=== PATIENT | male | born 1955 | race Caucasian/White ===

== ENCOUNTER 2018-05-19 09:11 | Outpatient (REF) | payer MEDICARE, SELFPAY ==
[2018-05-19 21:44] LABS: Absolute Basophil Count 0.03 k/cumm (0.0-0.2); Absolute Eosinophil Count 0.14 k/cumm (0.0-0.7); Absolute Lymphocyte Count 1.25 k/cumm (1.2-3.4); Absolute Monocyte Count 0.73 k/cumm (0.11-0.7); Absolute Neutrophil Count 2.75 k/cumm (1.2-6.7); Basophils % 0.6; Eosinophils % 2.9; HCT 42.9 % (40.0-50.0); HGB 14.6 g/dL (13.5-17.5); Lymphocytes % 25.5; Mean Corpuscular Hemoglobin 32.2 pg (27.0-33.0); Mean Corpuscular Volume 94.5 fL (80-95); Mean Platelet Volume 11.1 fL (8.0-11.0); Monocytes % 14.9; Neutrophils % 56.1; Platelet Count 164 x1000/uL (130-400); RBC 4.54 m/cumm (4.50-6.00); RBC Distribution Width 13.4 % (11.8-14.1)
[2018-05-19 21:55] LABS: Hemoglobin A1C 5.8 % (4.5-6.2)
[2018-05-19 21:57] LABS: ALT 33 U/L (12-78); AST 20 U/L (15-37); Albumin 3.8 g/dL (3.4-5.0); Alkaline Phosphatase 79 U/L (46-116); Anion Gap 7.5 mmol/L (3-11); BUN 17 mg/dL (7-18); Bilirubin, Total 0.6 mg/dL (0.2-1.0); CO2 29.5 mmol/L (21.0-32.0); CREATININE 1.62 mg/dL (0.70-1.30); Calcium 9.3 mg/dL (8.5-10.1); Chloride 99 mmol/L (98-107); Estimated GFR 42.98 (mL/min/1.73m2); Glucose 96 mg/dL (70-100); Potassium 4.4 mmol/L (3.5-5.1); Sodium 136 mmol/L (136-145); Total Protein 7.3 g/dL (6.4-8.2); Uric Acid 8.3 mg/dL (3.5-7.2)
[2018-05-19 22:33] LABS: ESR 22 MM/HR (1-20)
== END 2018-05-19 09:31 ==
LOC: NCHCN 09:11
PROVIDERS: PCP Internal Medicine; Visit Provider Nurse Practitioner Family
DX: M10.9 Gout, unspecified (principal); R22.41 Localized swelling, mass and lump, right lower limb; R73.03 Prediabetes; I10 Essential (primary) hypertension
CPT/HCPCS: 80053; 85652; 83036; 84550; 85025; 86140

== ENCOUNTER 2018-07-12 11:41 | Outpatient (REF) | payer MEDICARE, SELFPAY ==
[2018-07-12 22:26] LABS: Anion Gap 7.7 mmol/L (3-11); BUN 15 mg/dL (7-18); CO2 31.3 mmol/L (21.0-32.0); Calcium 8.9 mg/dL (8.5-10.1); Chloride 99 mmol/L (98-107); Estimated GFR 46.97 (mL/min/1.73m2); Glucose 97 mg/dL (70-100); Potassium 4.6 mmol/L (3.5-5.1); Sodium 138 mmol/L (136-145)
== END 2018-07-12 12:01 ==
LOC: NCHCN 11:41
PROVIDERS: PCP Internal Medicine; Visit Provider Nurse Practitioner Family
DX: I10 Essential (primary) hypertension (principal)
CPT/HCPCS: 80048

== ENCOUNTER 2018-07-23 09:22 | Outpatient (REF) | payer MEDICARE, SELFPAY ==
[2018-07-23 21:26] LABS: Anion Gap 5.6 mmol/L (3-11); BUN 18 mg/dL (7-18); CO2 31.4 mmol/L (21.0-32.0); CREATININE 1.55 mg/dL (0.70-1.30); Calcium 9.5 mg/dL (8.5-10.1); Chloride 98 mmol/L (98-107); Estimated GFR 45.23 (mL/min/1.73m2); Glucose 101 mg/dL (70-100); Potassium 4.4 mmol/L (3.5-5.1); Sodium 135 mmol/L (136-145)
== END 2018-07-23 09:42 ==
LOC: NCHCN 09:22
PROVIDERS: PCP Internal Medicine; Visit Provider Nurse Practitioner Family
DX: I10 Essential (primary) hypertension (principal)
CPT/HCPCS: 80048

== ENCOUNTER 2024-03-17 08:59 | Outpatient (REF) | payer MEDICARE, SELFPAY ==
--- OUTSIDE RECORDS SUMMARY | 2024-03-17 09:06 | XMS_ITS | Data Portability ---
Author Organization [place] - [facility] Address Leslie [place] [facility] [place] [address] Assessment Encounter Date Assessment Date Assessment LastModified by Organization Details LastModified Time 03/09/2024 03/09/2024 Patient recently experienced a CVA event and has ongoing weakness in his right upper extremity. He is advised to continue with low dose aspirin and Lipitor 40 mg at night for an LDL of 136. Referrals to cardiology and vascular surgery are in place. A CT of the head without contrast is recommended for early April.The patient is a 69-year-old male with a history of chronic kidney disease, stage 3, recent cerebral infarction, essential hypertension, and swollen right hand. He presents for follow-up after his recent CVA event and reinitiation of primary care. His blood pressure is currently controlled with medications, and he has limited use of his swollen right hand, which he believes may be due to gout. [email or web address] Not available 03/09/2024 10:00:33 Plan of Treatment Reminders Order Date Submit Date Provider Last Modified By Organization Details Last Modified Time Details Appointments Follow Up 2023 08:10A M Not available Not available Not available Follow Up 2023 09:00A M Not available Not available Not available Lab None recorded. Referral None recorded. Procedures None recorded. Surgeries None recorded. Imaging None recorded. Medication Orders nifedipin e ER 30 mg tablet,ex tended release 2023 0815/2 024 [id number], [address], [place], [place], [phone], 03/17/2024 08:04:22 Patient TargetsNo targets recorded. Patient Instructions Encounter Date Encounter Id Patient Instructions Last Modified By Organization Details Last Modified Time 03/09/2024 [id number] - Continue warren garcia prescribed blood pressure medications - Monitor blood pressure at home twice a day - Follow up within a week to reevaluate blood pressure and medication regimen - Apply gel and take Tylenol as recommended for swollen right hand - Schedule a follow-up appointment to discuss the possibility of physical therapy once the gout has resolved. [email or web address] Not available 03/09/2024 09:41:14 Reason for Referral None Reported. Results Created Date Observation Date Name Description Value Unit Range Abnormal Flag LastModifiedBy Organization Detail LastModifiedTime Result Notes None recorded. Problems Name Status Onset Date Resolution Date Notes Provider Name and Address Organization Details Recorded Time Cerebrovascular accident Active 024 [facility] [place] EBER carlos [facility] 4 06:24:44 Chronic kidney disease stage 3 Active 024 EBER carlos [facility] 4 06:25:16 Essential hypertension Active 024 EBER carlos [facility] 4 06:25:52 Hyperlipidemia Active 024 GRACE MENDOZA, [facility] N[facility]SE [address], [place], [address] [place] [address] 4 09:58:32 Problem Notes None recorded. Medical Equipment None Reported. Medications Name Sig Start Date Stop Date Status Note LastModified by Organization Details LastModified Time nifedipine ER 30 mg tablet,ext ended release 24 hr TAKE 1 TABLET BY MOUTH EVERY DAY active Not Available Not Available No t Available atorvastat in 40 mg tablet Take 1 tablet every day by oral route at bedtime. active Not Available Not Available No t Available clonidine HCl 0.1 mg tablet Take 1 tablet twice a day by oral route. active Not Available Not Available No t Available carvedilol 6.25 mg tablet Take 1 tablet twice a day by oral route with meal(s). active Not Available Not Available No t Available nifedipine ER 30 mg tablet,ext ended release Take 1 tablet every day by oral route. 03/17 completed Not Available Not Available Not Available aspirin 81 mg chewable tablet Chew 1 tablet every day by oral route. active Not Available Not Available No t Available irbesartan 150 mg tablet Take 1 tablet every day by oral route. active Not Available Not Available No t Available diclofenac 1 % topical gel APPLY 2 GRAMS TO THE AFFECTED AREA(S) BY TOPICAL ROUTE 4 TIMES PER DAY active PRN for wrist pain Not Available Not Available Not Available Vitals Date Recorded Body height Body temperature Oxygen saturation Oxygen saturation in Arterial blood by Pulse oximetry Heart rate Systolic blood pressure Diastolic blood pressure Provider Name and Address Organization Details Last Updated DateTime 4 182.88 cm 97.3 [degF] 98 % 98 % 60 /min 122 mm[Hg] 62 mm[Hg] ALMA BULL RN [facility] 4 07:43:47 Date Recorded Body height Body mass index (BMI) Body weight Body temperature Oxygen saturation Oxygen saturation in Arterial blood by Pulse oximetry Heart rate Systolic blood pressure Diastolic blood pressure Provider Name and Address Organization Details Last Updated DateTime 4 182.88 cm 38 kg/m2 842558. 86 g 97.2 [degF] 99 % 99 % 57 /min 156 mm[Hg] 86 mm[Hg] MARTHA VAUGHAN MA [facility] 4 08:08:03 Social History Question Answer Notes LastModified by Organizat ion Details LastModified Time Tobacco Smoking Status Never Smoker But chews ALMA BULL RN [facility], [facility] 03/09/2024 07:40:47 Do You Or Have You Ever Used E-cigarettes Or Vape? Never Used Electronic Cigarettes [email or web address] Information not available 03/09/2024 Would You Say That, In General, Your Health Is Good [email or web address] Information not available 03/08/2024 How Often Does Anyone, Including Family, Physically Hurt You? Never [email or web address] Information not available 03/08/2024 How Often Does Anyone, Including Family, Insult Or Talk Down To You? Never [email or web address] Information no t available 03/08/2024 How Often Does Anyone, Including Family, Threaten You With Harm? Never [email or web address] Information not available 03/08/2024 How Often Does Anyone, Including Family, Scream Or Curse At You? Never Information not available 03/08/2024 Within The Past 12 Months, You Worried That Your Food Would Run Out Before You Got Money To Buy More. Never True [email or web address] Information n ot available 03/08/2024 Within The Past 12 Months, The Food You Bought Just Didn't Last And You Didn't Have Money To Get More. Never True [email or web address] Information n ot available 03/08/2024 How Hard Is It For You To Pay For The Very Basics Like Food, Housing, Medical Care, And Heating? Would You Say It Is: Not Hard At All [email or web address] Information not available 03/08/2024 In The Past 12 Months, Has Lack Of Reliable Transportation Kept You From Medical Appointments, Meetings, Work Or From Getting Things Needed For Daily Living? No [email or web address] Information not available 03/08/2024 What Is Your Housing Situation Today? I Have Housing. [email or web address] Information not available 03/08/2024 How Often In The Past Year Have You Used Marijuana (including Smoking, Vaping, Dabbing, Or Edibles)? Never Information not available 03/08/2024 How Often In The Past Year Have You Used Prescription Medications That Were Not Prescribed To You? Never [email or web address] Information n ot available 03/08/2024 How Often In The Past Year Have You Taken Your Own Prescription Medication More Than The Way It Was Prescribed Or For Different Reasons Than Its Intended Purpose? Never [email or web address] Information no t available 03/08/2024 How Often In The Past Year Have You Used Other Drugs (for Example, Heroin, Cocaine, Meth, Salvia, Inhalants)? Never [email or web address] Information not available 03/08/2024 Have You Ever Used IV Drugs? No [email or web address] Information not available 03/08/2024 Date Of Most Recent SBINS 03/09/2024 [email or web address] Information not available 03/08/2024 What Was The Date Of Your Most Recent Tobacco Screening? 03/09/2024 [email or web address] Information not available 03/09/2024 Do You Or Have You Ever Used Smokeless Tobacco? Former Smokeless Tobacco User Quit Since 2023 [email or web address] Information not available 03/09/2024 Has Tobacco Cessation Counseling Been Provided? No [email or web address] Information not available 03/09/2024 Do You Or Have You Ever Used Any Other Forms Of Tobacco Or Nicotine? Yes [email or web address] Information not available 03/09/2024 How Many Years Have You Used Smokeless Tobacco? 50 [email or web address] Information n ot available 03/09/2024 Sex: Male Functional Status None recorded. Mental Status None recorded. Family History Relationship Description Onset Age of this Age Resolved Age Notes Notes:Mother: 75 [address] . Father: 51 heart attack, rheumatic fever. 2 sisters: 1 sister obese, diabetic. 5 Brothers: 1 electrocution; 1 heart trouble; 2 brother HTN. Possible hypertrophic cardiomyopathy with 2 brothers per patient - he is unsure. Children:1 child alive and well. Family History of: Hypertension: yes Hyperlipidemia: yes Coronary heart disease: yes Diabetes mellitus: yes Breast cancer: no Colorectal cancer: no Prostate cancer: no Alcoholism: no Mental illness: no Other: no Medical History No medical history recorded. Immunizations Vaccine Type Date Status Provider Name and Address Organization Details Recorded Time Tdap 11/20/2014 completed BENIGNO KHAN, [facility] 03/16/2024 08:23:14 Td(adult) unspecified formulation 09/03/1998 completed BENIGNO KHAN, [facility] 03/16/2024 08:23:27 Td(adult) unspecified formulation 09/07/2003 completed BENIGNO KHAN, [facility] 03/16/2024 08:23:33 Past Encounters Encounter ID Performer Location Encounter Start Date Encounter Closed Date Diagnosis/Indication Diagnosis SNOMED-CT Code [id number] GRACE MENDOZA [address] [address] 03/09/2024 07:16:20 03/09/2024 08:18:52 Chronic kidney disease stage 3 [id number] Cerebrovas cular accident [id number] Essential hypertension 30710313 Hyperlipidemia [id number] August [address] [address] 03/17/2024 07:56:36 03/17/2024 08:53:09 Essential hypertension 66628974 Health Concerns Section Related Observation LastModified by Organization Detai ls LastModified Time None Recorded Concern Status LastModified by Organization Details LastModified Time None Recorded Advance Directives Directive None Recorded Payers Encounter Date Sequence Insurance Name Policy Number Policy Olvera Covered Member ID Olvera Member ID Guarantor Name 03/09/2024 1 [place]ICARE [place]: [email or web address] Scottie Smith [id number] Scottie Smith Notes Date Note Type Note Provider Name and Address Organization Details Recorded Time 03/09/2024 text/html HPI Notes: -Pt s hould f/u with cardiology and vascular surgery (referrals in place) -Pt should have playground monitor on for 30 days. started around march 04. - Needs CT of head wo contrast to be completed around 04/04 (not sure this has been ordered or not) 69-year-old male presents for follow-up after recent CVA event and reinitiation of primary care. Cerebral infarction: Patient recently had a CVA event and was hospitalized for several days. He had limited prior medical care, poorly controlled hypertension, and coronary artery disease. He presented with new onset of right upper extremity weakness. CT of his head and angiogram showed a moderate stenosis. He was not given TPA at the hospital. Essential hypertension: Patient reports poor tolerance to blood pressure medications in the past and has not been treated with any antihypertensives prior to his admission to the hospital. His blood pressure is currently controlled with medications. Swollen right hand: Patient's right hand is swollen and he has limited use of it. He believes this may be due to gout. He has a history of getting gout a couple of times a year in various locations. He is currently not receiving any physical therapy for his hand. 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 03/17/2024 04:47:42
--- OUTSIDE RECORDS SUMMARY | 2024-03-17 09:07 | XMS_ITS | Clinical Summary ---
Author Organization [facility] Address [address] [place] [address] Care Team Providers Care Automatic Engraver Name Role Phone Rhonda Han MISAEL Primary Care Provider [phone] Allergies No known active allergies Medications Medication Sig Dispensed Refills Start Date End Date Status aspirin chewable 81 mg tablet Take 1 Tablet by mouth daily for 90 days. 30 Tablet 2 03/04/2024 06/02/2024 Active atorvastatin (LIPITOR) 40 mg tablet Take 1 Tablet by mouth at bedtime for 90 days. 30 Tablet 2 03/04/2024 06/02/2024 Active carvediloL (COREG) 6.25 mg tablet Take 1 Tablet by mouth 2 times daily with breakfast and dinner for 90 days. 60 Tablet 2 03/04/2024 06/02/2024 Active cloNIDine HCL (CATAPRES) 0.1 mg tablet Take 1 Tablet by mouth 2 times daily for 30 days. 60 Tablet 03/04/2024 04/03/2024 Active NIFEdipine XL (PROCARDIA-XL) 30 mg tablet Take 1 Tablet by mouth daily for 90 days. 30 Tablet 2 03/04/2024 06/02/2024 Active irbesartan (AVAPRO) 150 mg tablet Take 1 Tablet by mouth daily for 90 days. 30 Tablet 2 03/04/2024 06/02/2024 Active diclofenac sodium gel Apply 2 g topically 4 times daily for 30 days. As needed for wrist pain 250 g 03/04/2024 04/03/2024 Active aspirin chewable 81 mg tablet Take 81 mg by mouth daily. 03/01/2024 Discontinued( Patient stopped taking (will not send dc message to pharm)) Active Problems Problem Noted Date Diagnosed Date Mass in region of sella turc ica present on magnetic resonance imaging 03/04/2024 Resistant hypertension 03/04/2024 Stenosis of carotid artery 03/04/2024 Primary hypertension 03/02/2024 Stage 3 chronic kidney disease (HCC-CMS) 024 Cerebrovascular accident (CVA) (HCC-CMS) 024 Cerebrovascular accident (CV A), unspecified mechanism (HCC-CMS) 03/01/2024 Encounters Date Type Department Care Team Description 03/11/2024 16:00 EDT Nurse Only [facility] [address] [place] [address] Nurse, [facility] Cerebrovascular accident (CVA), unspecified mechanism (HCC-CMS) (Primary Dx) 03/11/2024 16:00 EDT Ancillary Procedure [facility] [address] [place], [place] [id number] Cerebrovascular accident (CVA), unspecified mechanism (HCC-CMS) 03/04/2024 Telephone [facility] [address] [place] [id number] Samaria Dorsey MD Cardiac Testing (CHANDLER Order) 03/01/2024 9:51 EDT - 03/04/2024 11:57 EDT Hospital Encounter [facility] Medical / Surgical Department [address] [place] [address] [id number] Benny Ferreira MD Bolton, Kenyon C, MD Clouser, Ryan D, Rocael Geller DO Clark, Nicole P, PAViraC Cerebrovascular accident (CVA), unspecified mechanism ([facility]-CMS) (Primary Dx); Primary hypertension; Stage 3 chronic kidney disease, unspecified whether stage 3a or 3b CKD (HCC-CMS); Stage 3a chronic kidney disease (HCC-CMS) [N18.31]; Mass in region of sella turcica present on magnetic resonance imaging; Resistant hypertension; Stenosis of carotid artery, unspecified laterality Discharge Disposition: Home or Self Care 03/01/2024 Telemedicine [facility] Telemedicine - [address] [address] Nina Rivera MD Ischemic stroke ([facility]) (Primary Dx) from Last 3 Months Social History Tobacco Use Types Packs/Day Years Used Date Smoking Tobacco: Never Smokeless Tobacco: Current Chew Tobacco Cessation:Ready to Q uit: Yes; Counseling Given: Not Answered Alcohol Use Standard Drinks/Week Comments Yes 5 (1 standard drink = 0.6 oz pur e alcohol) [facility] Utilities Answer Date Recorded In the past 12 months has th e electric, gas, oil, or water company threatened to shut off services in your home? No 03/01/2024 Hunger Vital Sign Answer Date Recorded Within the past 12 months, y ou worried that your food would run out before you got the money to buy more. Never true 03/01/20 24 Within the past 12 months, t he food you bought just didn't last and you didn't have money to get more. Never true 03/01/2024 PRAPARE - Transportation Answer Date Re corded In the past 12 months, has l ack of transportation kept you from medical appointments or from getting medications? No 02/02 In the past 12 months, has l ack of transportation kept you from meetings, work, or from getting things needed for daily living? No 03/02/2024 Housing Stability Vital Sign Answer Tony e Recorded In the last 12 months, was t here a time when you were not able to pay the mortgage or rent on time? No 03/02/2024 In the past 12 months, how m any times have you moved where you were living? 0 03/02/2024 At any time in the past 12 m [facility], were you homeless or living in a custodial (including now)? No 03/02/2024 Interpersonal Safety Answer Date Record ed How often does anyone, inclu mónica family, hit, punch or physically hurt you? 03/01/2024 How often does anyone, inclu mónica family, insult, scream, curse or threaten to hurt you? 03/01/2024 Sex and Gender Information Value Date Recorded Sex Assigned at Not on file Gender Identity Not on file Sexual Orientation Not on file Obstetrics History Last Filed Vital Signs Vital Sign Reading Time Taken Comments Blood Pressure 160/83 03/04/2024 1140 EDT Pulse 73 02/23/2021 0909 EDT Temperature 36.6 ??C (97.9 ??F) 03/04/2024 1140 EDT Respiratory Rate 18 03/04/2024 1140 EDT Oxygen Saturation 95% 03/04/2024 1140 EDT Inhaled Oxygen Concentration - - Weight 121 kg (266 lb 12.8 oz) 03/04/2024 0351 E DT Height 182.9 cm (6') 03/01/2024 1613 EDT Body Mass Index 36.18 03/01/2024 1613 EDT Plan of Treatment Upcoming Encounters Date Type Department Care Team (Late st Contact Info) Description 04/22/2024 17:00 EDT Appointment [facility] CT Scan [address] [phone] Health Maintenance Due Date Last Done Comments Hepatitis C Screen 1955 RSV Immunization ( o r 60+ Years) (1 - 1-dose 60+ series) 2013 Fall Risk Screening 2018 COVID-19 Vaccine (2022- season) 2023 Procedures Procedure Name Priority Date/Time Associated Diagnosis Comments ECG REPORT - SCANNED 03/08/2024 8:01 EDT US RENAL ARTERY DUPLEX COMPLETE STAT 03/04/2024 9:25 EDT UA WITH REFLEX SEDIMENT (CULTURE IF POS) Routine 03/03/2024 20:37 EDT ECG REPORT - SCANNED 03/03/2024 13:40 EDT XR WRIST RIGHT 2 VIEWS STAT 10:32 EDT HOLD LAVENDER TOP Routine 03/03/2024 6:3 0 EDT BASIC METABOLIC PANEL (BMP) Routine 03/03/2024 6:30 EDT LIPID PROFILE (INCLUDES CHOLESTEROL, TRIGLYCERIDES, HDL, LDL) Routine 03/02/2024 6:45 EDT PROLACTIN Routine 03/02/2024 6:45 EDT IGF-1, LC/MS, S Routine 03/02/2024 6:45 EDT ACTH, PLASMA Routine 03/02/2024 6:45 EDT CORTISOL Routine 03/02/2024 6:45 EDT COMPLETE BLOOD COUNT Routine 03/02/2024 6:45 EDT COMPREHENSIVE METABOLIC PANEL (CMP) Routine 03/02/2024 6:45 EDT ECG REPORT - SCANNED 03/01/2024 16:45 EDT MR HEAD WO CONTRAST STAT 03/01/2024 1 5:18 EDT TRANSTHORACIC ECHO (TTE) COMPLETE Routine 03/01/2024 14:03 EDT XR CHEST PORTABLE 1 VIEW STAT 03/01/2024 11:52 EDT POCT GLUCOSE, INTERFACED STAT 03/01/2024 11:25 EDT EKG 12-LEAD STAT 03/01/2024 10:10 EDT T4 FREE Today 03/01/2024 10:08 EDT THYROID CASCADE Add-On 03/01/2024 10:08 EDT HEMOGLOBIN A1C Add-On 03/01/2024 10:08 EDT UA WITH REFLEX SEDIMENT (CULTURE IF POS) STAT 03/01/2024 10:08 EDT MAGNESIUM STAT 03/01/2024 10:08 EDT TROPONIN I STAT 03/01/2024 10:08 EDT PTT STAT 03/01/2024 10:08 EDT PROTIME STAT 03/01/2024 10:08 EDT ETHANOL, BLOOD STAT 03/01/2024 10:08 EDT COMPREHENSIVE METABOLIC PANEL (CMP) STAT 03/01/2024 10:08 EDT COMPLETE BLOOD COUNT AND DIFFERENTIAL STAT 03/01/2024 10:[address] ANGIO HEAD NECK STAT 03/01/2024 10 :[address] HEAD WO CONTRAST STAT 03/01/2024 1 0:02 EDT ED CRITICAL CARE Routine 03/01/2024 9:49 EDT from Last 3 Months Results * ECG REPORT - SCANNED (03/08/2024 8:01 EDT) 03/08/2024 8:01 EDT Scan 2 Crusher Operator PROCEDURE/MINOR ALIYAH GICAL ORDERABLES * US RENAL ARTERY DUPLEX COMPLETE (03/04/2024 9:25 EDT) Anatomical Region Laterality Modality Vascular Ultrasound Narrative 03/04/2024 9:34 EDT Indication ======== Resistant hypertension. Evaluate for renal artery stenosis. Technique ======== Color and spectral doppler was performed to rule out renal artery stenosis. View: Suboptimal view: restricted by patient size Right Kidney Length 10.9 cm. Width 5.3 cm. Height 4.7 cm. Volume 141.3 cm?? Normal. Left Kidney ========= Length 11.6 cm. Width 5.4 cm. Height 5.2 cm. Volume 172.1 cm?? Normal. Renal Arteries Right Kidney Arteries: ?? PS ?ED ?RI ??EDR AT ?? cm/s ?cm/s ?ms Renal A mid ?88 ??26 ??0.71 ?0.29 ?130 Renal A distal 56 ??20 ??0.64 ?0.36 ?180 Segmental A upper ??15 ??0 ?? 1.00 ?0.00 ?240 Segmental A mid ?12 ??5 ?? 0.57 ?0.43 ?100 Segmental A lower ??21 ??7 ?? 0.66 ?0.34 ?180 Left Kidney Arteries: ?? PS ??ED ??RI ??EDR AT ?? cm/s ?cm/s ?ms Renal A prox ?? 142 42 ??0.71 ?0.29 ?240 Renal A mid ?65 ??27 ??0.58 ?0.42 ?320 Renal A distal 56 ??25 ??0.55 ?0.45 ?30 Segmental A upper ??15 ??6 ?? 0.60 ?0.40 ?150 Segmental A mid ?17 ??7 ?? 0.60 ?0.40 ?330 Segmental A lower ??18 ??6 ?? 0.66 ?0.34 ?300 Abdominal Aorta ?? Diam AP Diam Trans ??PS ??ED ?? cm ??cm ??cm/s ?cm/s Aorta prox 1.7 2.8 Aorta mid ??1.4 2.2 60 ??17 Aorta distal ?? 1.5 2.0 Impression ========= 1. Limited study as the proximal right renal artery could not be visualized. 2. No Doppler evidence of renal artery stenosis, however CTA is recommended if there is persistent refractory hypertension. 3. Kidneys normal in appearance. Procedure Note Lobo Siegel MD - 03/04/2024 Indication ======== Resistant hypertension. Evaluate for renal artery stenosis. Technique ======== Color and spectral doppler was performed to rule out renal arterystenosis. View: Suboptimal view: restricted by patient size Right Kidney Length 10.9 cm. Width 5.3 cm. Height 4.7 cm. Volume 141.3 cm?? Normal. Left Kidney ========= Length 11.6 cm. Width 5.4 cm. Height 5.2 cm. Volume 172.1 cm?? Normal. Renal Arteries Right Kidney Arteries: PS ED RI EDR AT cm/s cm/s ms Renal A mid 88 26 0.71 0.29 130 Renal A distal 56 20 0.64 0.36 180 Segmental A upper 15 0 1.00 0.00 240 Segmental A mid 12 5 0.57 0.43 100 Segmental A lower 21 7 0.66 0.34 180 Left Kidney Arteries: PS ED RI EDR AT cm/s cm/s ms Renal A prox 142 42 0.71 0.29 240 Renal A mid 65 27 0.58 0.42 320 Renal A distal 56 25 0.55 0.45 30 Segmental A upper 15 6 0.60 0.40 150 Segmental A mid 17 7 0.60 0.40 330 Segmental A lower 18 6 0.66 0.34 300 Abdominal Aorta Diam AP Diam Trans PS ED cm cm cm/s cm/s Aorta prox 1.7 2.8 Aorta mid 1.4 2.2 60 17 Aorta distal 1.5 2.0 Impression ========= 1. Limited study as the proximal right renal artery could not bevisualized. 2. No Doppler evidence of renal artery stenosis, however CTA isrecommended if there is persistent refractory hypertension. 3. Kidneys normal in appearance. Delphine Beltrán PA-C IMG US VASCULAR ORDE [place] * UA CASCADE TO CULTURE (03/03/2024 20:37 EDT) Only the most recent of2 resultswithin the time period is included. Color UA Yellow Colorless, Yellow 03/03/2024 20:44 [facility] Clarity UA Clear Clear 03/03/2024 20:44 [facility] Glucose UA Negative Negative mg/dL 03/03/2024 20:44 [facility] Bilirubin UA Negative Negative 03/03/2024 20:44 [facility] Ketones UA Negative Negative 03/03/2024 20:44 [facility] Specific [place], Urine 1.010 1.001 - 1.030 03/03/2024 20:44 [facility] Blood UA Negative Negative 03/03/2024 20:44 [facility] pH, UA 6.5 <8.5 03/03/2024 20:44 [facility] Protein UA Negative Negative mg/dL 03/03/2024 20:44 [facility] Urobilinogen UA 0.2 0.2-1.0 mg/dL mg/dL 03/03/2024 20:44 [facility] Nitrite UA Negative Negative 03/03/2024 20:44 [facility] Leukocyte Esterase UA Negative Negative 03/03/2024 20:44 [facility] Urine URINE SPECIMEN OBTAINED BY CLEAN CATCH PROCEDURE / Unknown Urine Collect / Unknown 03/03/2024 20:37 EDT 03/03/2024 20:40 EDT Delphine Beltrán PA-C URINALYSIS ORDERABLE S [facility] [address] [place] [address] * ECG REPORT - SCANNED (03/03/2024 13:40 EDT) 03/03/2024 13:4 0 EDT Scan 2 Crusher Operator PROCEDURE/MINOR ALIYAH GICAL ORDERABLES * XR WRIST RIGHT 2 VIEWS (03/03/2024 10:32 EDT) Anatomical Region Laterality Modality Upper Extremities Right Computed Radio graphy 03/03/2024 10:5 0 EDT Impressions 03/03/2024 10:50 EDT 1. ??No acute fracture identified. 2. ??Evidence of old wrist trauma, as detailed above. 3. ??Moderate wrist arthrosis. [id number] Narrative 03/03/2024 10:50 EDT XR WRIST RIGHT 2 VIEWS ?? Signs and Symptoms/Comments: ??fall. right wrist pain Comparison: 02/23/2021. FINDINGS: Right wrist: 2 views. Bones: Chronic widening of the scapholunate interval, suspicious for remote ligamentous injury. Mild chronic irregularity along the ulnar styloid, suspicious for an old fracture. Stable small calcification along the volar aspect of the proximal wrist on the lateral view, suspicious for an old fracture fragment. No superimposed acute fracture visible. Degenerative changes: Moderate wrist arthrosis. Mild ulnar negative variance. Soft tissues: Soft tissue swelling. Small vessel calcified atherosclerotic disease noted. Resulting Agency Comment [id number] Procedure Note Lobo Siegel MD - 03/03/2024 XR WRIST RIGHT 2 VIEWS Signs and Symptoms/Comments: fall. right wrist pain Comparison: 02/23/2021. FINDINGS: Right wrist: 2 views. Bones: Chronic widening of the scapholunate interval, suspicious forremote ligamentous injury. Mild chronic irregularity along the ulnarstyloid, suspicious for an old fracture. Stable small calcification alongthe volar aspect of the proximal wrist on the lateral view, suspicious renita old fracture fragment. No superimposed acute fracture visible. Degenerative changes: Moderate wrist arthrosis. Mild ulnar negativevariance. Soft tissues: Soft tissue swelling. Small vessel calcified atheroscleroticdisease noted. IMPRESSION 1. No acute fracture identified. 2. Evidence of old wrist trauma, as detailed above. 3. Moderate wrist arthrosis. [id number] Delphine Beltrán PA-C IMG DIAGNOSTIC IMAGI NG ORDERABLES * HOLD LAVENDER TOP (03/03/2024 6:30 EDT) Hold Hold 03/03/2024 7:45 [facility] Blood VENOUS BLOOD / Unknown Venipuncture / Unknown 03/03/2024 6:30 EDT 03/03/2024 6:44 EDT Branden Galaviz DO LAB INFO SERVICE AND SUPPORT & PHONE RESULT [facility] [address] [place] [address] * (ABNORMAL) BASIC METABOLIC PANEL (BMP) (03/03/2024 6:30 EDT) Sodium 136 136 - 145 mmol/L 03/03/2024 7:10 [facility] Potassium 4.6 3.5 - 5.0 mmol/L 03/03/2024 7:10 [facility] Chloride 101 96 - 110 mmol/L 03/03/2024 7:10 [facility] CO2 Total 26 22 - 32 mmol/L 03/03/2024 7:10 [facility] Anion Gap 9 5 - 14 mmol/L 03/03/2024 7:10 [facility] Glucose 98 70 - 99 mg/dl 03/03/2024 7:10 [facility] Calcium 9.1 8.5 - 10.5 mg/dL 03/03/2024 7:10 [facility] BUN 25 10 - 26 mg/dL 03/03/2024 7:10 [facility] Creatinine 1.53(H) 0.66 - 1.25 mg/dL 03/03/2024 7:10 [facility] eGFR 48(L) >60 mL/min/1.73 m2 03/03/2024 7:10 [facility] Blood VENOUS BLOOD / Unknown Venipuncture / Unknown 03/03/2024 6:30 EDT 03/03/2024 6:42 EDT Branden Galaviz DO CHEMISTRY & BLOOD GA S ORDERABLES [facility] [address] [place] [address] * ACTH, PLASMA (03/02/2024 6:45 EDT) [facility] Adrenocorticotropic Hormone, P 25 pg/mL 03/03/2024 17:14 EDT [facility] Comment: REFERENCE VALUE 7.2-63 (a.m. collection) Test Performed by: [place] [id number] Quill Machine Tender: Nhan Mistry Ph.D.; CLIA# [id number] Blood VENOUS BLOOD / Unknown Venipuncture / Unknown 03/02/2024 6:45 EDT 03/02/2024 6:54 EDT Vik De Anda MD CHEMISTRY & BLOOD GA S ORDERABLES Performing Organization Address City/[facility]/ZIP Co de Phone Number [facility] [address] [place] [id number] * PROLACTIN (03/02/2024 6:45 EDT) [facility] Prolactin 7.9 2.1 - 17.7 ng/mL 03/02/2024 13:55 EDT [facility] Blood VENOUS BLOOD / Unknown Venipuncture / Unknown 03/02/2024 6:45 EDT 03/02/2024 6:56 EDT Vik De Anda MD CHEMISTRY & BLOOD GA S ORDERABLES [facility] [address] [place] [address] * IGF-1, LC/MS, S (03/02/2024 6:45 EDT) [facility] IGF-1, LC/MS, S 70 32 - 200 ng/mL 03/09/2024 17:54 EDT [facility] Z-score -0.84 -2.0 - 2.0 SD 03/09/2024 17:54 EDT [facility] Comment: ADDITIONAL INFORMATION This test was developed and its performance characteristics determined by [facility] in a manner consistent with CLIA requirements. This test has not been cleared or approved by the U.S. Food and Drug Administration. Test Performed by: [facility] [place] [address] Quill Machine Tender: Nhan Mistry Ph.D.; CLIA# [id number] Blood VENOUS BLOOD / Unknown Venipuncture / Unknown 03/02/2024 6:45 EDT 03/02/2024 6:56 EDT Vik De Anda MD CHEMISTRY & BLOOD GA S ORDERABLES [facility] [address] [place] [address] * (ABNORMAL) COMPLETE BLOOD COUNT (03/02/2024 6:45 EDT) Pathologist [facility] WBC 8.33 4.00 - 10.40 K/cmm 03/02/2024 7:06 [facility] RBC 4.32(L) 4.36 - 5.78 M/cmm 03/02/2024 7:06 [facility] Hemoglobin 13.6(L) 13.8 - 17.3 g/dL 03/02/2024 7:06 [facility] HCT 41.6 39.5 - 50.2 % 03/02/2024 7:06 [facility] MCV 96(H) 81 - 95 fL 03/02/2024 7:06 [facility] MCH 31.5 27.6 - 33.0 pg 03/02/2024 7:06 [facility] MCHC 32.7(L) 32.8 - 36.4 g/dL 03/02/2024 7:06 [facility] RDW-CV 13.2 <14.2 % 03/02/2024 7:06 [facility] RDW-SD 47.0(H) <46.0 fl 03/02/2024 7:06 [facility] PLT 220 141 - 377 K/cmm 03/02/2024 7:06 [facility] MPV 10.6 9.5 - 12.7 fL 03/02/2024 7:06 [facility] Blood VENOUS BLOOD / Unknown Venipuncture / Unknown 03/02/2024 6:45 EDT 03/02/2024 6:56 EDT Vik De Anda MD HEMATOLOGY & PF4 ORD ERABLES Performing Organization Address [facility] Co de Phone Number [facility] [address] [place] [address] * CORTISOL (03/02/2024 6:45 EDT) Cortisol 10 See Note ug/dL 03/02/2024 8:08 EDT [facility] Comment: NOTE: Reference Ranges (from OCD IFU): Collected Before 10:00 AM: ??4 - 23 ug/dL Collected After 5:00 PM: ?2 - 14 ug/dL The results of this assay can be falsely elevated due to the consumption of Biotin. Blood VENOUS BLOOD / Unknown Venipuncture / Unknown 03/02/2024 6:45 EDT 03/02/2024 6:55 EDT Vik De Anda MD CHEMISTRY & BLOOD GA S ORDERABLES Performing Organization Address [facility] Co de Phone Number [facility] [address] [place] [address] * (ABNORMAL) LIPID PROFILE (INCLUDES CHOLESTEROL, TRIGLYCERIDES, HDL, LDL) (03/02/2024 6:45 EDT) Cholesterol 205(H) <200 mg/dL 03/02/2024 7:34 [facility] Comment:Note that therapeuti c goals will differ between patients based on cardiac risk factors and current medical therapy. HDL 46 >=40 mg/dl 03/02/2024 7:34 [facility] Comment:Note that therapeuti c goals will differ between patients based on cardiac risk factors and current medical therapy. LDL, Calculated 136 <160 mg/dL 7:34 [facility] Comment:Note that therapeuti c goals will differ between patients based on cardiac risk factors and current medical therapy. Triglyceride 117 <=150 mg/dL 03/02/2024 7:34 [facility] Comment:Note that therapeuti c goals will differ between patients based on cardiac risk factors and current medical therapy. Chol/HDL Ratio 4.5 See Note 03/02/2024 7:34 [facility] Comment: NOTE: Desirable Ratio = <4.1 Patient At Risk Ratio = >5.0(Males) ?>6.0(Females) Non HDL Cholesterol 159 <160 mg/dL 03/02/2024 7:34 [facility] Comment:Note that therapeuti c goals will differ between patients based on cardiac risk factors and current medical therapy. Blood VENOUS BLOOD / Unknown Venipuncture / Unknown 03/02/2024 6:45 EDT 03/02/2024 6:55 EDT Vik De Anda MD CHEMISTRY & BLOOD GA S ORDERABLES [facility] [address] [place] [address] * (ABNORMAL) COMPREHENSIVE METABOLIC PANEL (CMP) (03/02/2024 6:45 EDT) Only the most recent of2 resultswithin the time period is included. Sodium 136 136 - 145 mmol/L 03/02/2024 7:34 [facility] Potassium 4.3 3.5 - 5.0 mmol/L 03/02/2024 7:34 [facility] Chloride 101 96 - 110 mmol/L 03/02/2024 7:34 [facility] CO2 Total 26 22 - 32 mmol/L 03/02/2024 7:34 [facility] Glucose 114(H) 70 - 99 mg/dl 03/02/2024 7:34 [facility] BUN 21 10 - 26 mg/dL 03/02/2024 7:34 [facility] Creatinine 1.49(H) 0.66 - 1.25 mg/dL 03/02/2024 7:34 [facility] eGFR 50(L) >60 mL/min/1.7 3m2 03/02/2024 7:34 [facility] Total Protein 6.8 6.3 - 8.2 g/dL 03/02/2024 7:34 [facility] Albumin 3.9 3.4 - 4.9 g/dL 03/02/2024 7:34 [facility] Alkaline Phosphatase 66 38 - 126 U/L 03/02/2024 7:34 [facility] AST 17 15 - 46 U/L 03/02/2024 7:34 [facility] ALT 13 <50 U/L 03/02/2024 7:34 [facility] Bilirubin, Total 0.6 <1.4 mg/dL 03/02/20 7:34 [facility] Calcium 9.0 8.5 - 10.5 mg/dL 03/02/2024 7:34 [facility] Albumin/Globulin Ratio 1.3 1.0 - 2.5 03/02/2024 7:34 [facility] Anion Gap 9 5 - 14 mmol/L 03/02/2024 7:34 [facility] Blood VENOUS BLOOD / Unknown Venipuncture / Unknown 03/02/2024 6:45 EDT 03/02/2024 6:55 EDT Vik De Anda MD CHEMISTRY & BLOOD GA S ORDERABLES [facility] [address] [place] [address] * ECG REPORT - SCANNED (03/01/2024 16:45 EDT) 03/01/2024 16:4 5 EDT Scan 2 Crusher Operator PROCEDURE/MINOR ALIYAH GICAL ORDERABLES * MR HEAD WO CONTRAST (03/01/2024 15:18 EDT) Anatomical Region Laterality Modality Head Magnetic Resonan ce 03/01/2024 15:3 5 EDT Impressions 03/01/2024 15:35 EDT 1. Small focus of restricted diffusion within left frontal convexity cortex consistent with small cortical infarct. 2. Well-defined low signal 1.5 cm nodule within the right scalp, likely benign. Correlate clinically. 3. Expansion of the sella turcica containing a 13 x 8 x 14 mm cystic mass. Further evaluation with nonemergent pituitary protocol CT within 1 month is recommended. [id number] Narrative 03/01/2024 15:35 EDT INDICATION: Possible lacunar infarct on CT; Possible lacunar infarct on CT;. COMPARISON: Head CT 03/01/2024 TECHNIQUE: Multiplanar, multisequence unenhanced MRI scan of the brain was performed. FINDINGS: Brain: There is a small focus of restricted diffusion within the left frontal convexity cortex (image 21, series 5) consistent with small cortical infarct. No other restricted diffusion. No intracranial hemorrhage. Global cerebral volume loss consistent with patient's age. Few nonspecific T2 FLAIR white matter signal hyperintensities. No intracranial mass or mass effect. 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 Further evaluation with nonemergent pituitary protocol CT is recommended within 1 month. Ventricles: Unremarkable. No ventriculomegaly. Paranasal Sinuses and Mastoids: The paranasal sinuses and mastoid air cells are unremarkable as visualized. Orbits: The ocular globes and retro-orbital fat are unremarkable as visualized. Bones/joints: The calvarium has a normal appearance. Soft tissues: Well-defined low signal 1.5 cm nodule within the subcutaneous tissues of the posterior superior right scalp corresponding to the calcified lesion seen on previous CT. Likely benign. Correlate clinically. Resulting Agency Comment [id number] Procedure Note William Barrios MD - 03/02/2024 INDICATION: Possible lacunar infarct on CT; Possible lacunar infarct onCT;. COMPARISON: Head CT 03/01/2024 TECHNIQUE: Multiplanar, multisequence unenhanced MRI scan of the brain wasperformed. FINDINGS: Brain: There is a small focus of restricted diffusion within the leftfrontal convexity cortex (image 21, series 5) consistent with smallcortical infarct. No other restricted diffusion. No intracranialhemorrhage. Global cerebral volume loss consistent with patient's age. Fewnonspecific T2 FLAIR white matter signal hyperintensities. No intracranialmass or mass effect. Expansion of the sella turcica with fluid signal mass measuring 13 x 8 x14 mm within the central and left side of the sella turcica and probabledisplacement of the pituitary gland to the right. Further evaluation withnonemergent pituitary protocol CT is recommended within 1 month. Ventricles: Unremarkable. No ventriculomegaly. Paranasal Sinuses and Mastoids: The paranasal sinuses and mastoid aircells are unremarkable as visualized. Orbits: The ocular globes and retro-orbital fat are unremarkable asvisualized. Bones/joints: The calvarium has a normal appearance. Soft tissues: Well-defined low signal 1.5 cm nodule within thesubcutaneous tissues of the posterior superior right scalp correspondingto the calcified lesion seen on previous CT. Likely benign. Correlateclinically. IMPRESSION 1. Small focus of restricted diffusion within left frontal convexitycortex consistent with small cortical infarct. 2. Well-defined low signal 1.5 cm nodule within the right scalp, likelybenign. Correlate clinically. 3. Expansion of the sella turcica containing a 13 x 8 x 14 mm cystic mass.Further evaluation with nonemergent pituitary protocol CT within 1 monthis recommended. [id number] Benny Ferreira MD IMG MRI ORDERABL ES * TRANSTHORACIC ECHO (TTE) COMPLETE W/DOPPLER W/CF NO CONTRAST (03/01/2024 14:03 EDT) Mitral deceleration time 176 ms [facility] MR Vmean 0.59 m/s [facility] AV DOI 0.74 [facility] LV Diastolic Volume 135 mL [facility] LV Systolic Volume 62 mL [facility] Mitral A-wave peak velocity 0.6 m/s [facility] Mitral valve, LVOT continuity 24.50 cm2 [facility] Mitral E-wave peak velocity 0.9 m/s [facility] Mitral peak gradient, D 9 mmHg [facility] Aortic peak gradient, S 7 mmHg [facility] Stroke volume (SV), LVOT DP 68 ml [facility] Aortic valve VTI, S 27.0 cm [facility] Aortic valve peak velocity, S 1.3 m/s [facility] LVOT VTI, S 21.5 cm [facility] LVOT peak velocity, S 1.0 m/s [facility] LVOT area 3.1 cm2 [facility] LVOT ID, S 2.0 cm [facility] Mitral valve area, LVOT continuity 2.80 cm2 [facility] Mitral mean gradient, D 2 mmHg [facility] AV LVOT peak gradient 4 mmHg [facility] Velocity ratio, mean, LVOT/AV 0.76 [facility] Aortic mean gradient, S 4 mmHg [facility] Aortic valve area, peak velocity 2.3 cm2 [facility] Aortic valve area VTI 2.5 cm2 [facility] LVOT mean gradient, S 2 mmHg [facility] LV ejection fraction, 1-p A4C 60 % [facility] LV ejection fraction, 1-p A2C 59 % [facility] Aortic valve mean velocity, S 0.9 m/s [facility] Aortic valve area 2.4 cm2 [facility] Aortic root ID 3.4 cm [facility] EF 60 % [facility] LV ID, ES, PLAX 3.8 2.1 - 4.0 cm [facility] LV ID, ED, PLAX 5.3 3.5 - 6.0 cm [facility] LV E/e', lateral 5.4 [facility] LA volume, ES, BP 96.0 ml [facility] LA Atrial Length A2C 5.7 cm [facility] LA volumes, ES, A4C 100.0 ml [facility] Pulmonic valve mean velocity, S 1 cm/s [facility] LA ID/bsa, A-P 1.6 cm/m2 [facility] LA ID, A-P, ES 4.2 cm [facility] LV end-diastolic volume, 1-p A4C 190 ml [facility] LV end diastolic volume 1-p A2C 217 ml [facility] Stroke index (SV/bsa) LVOT DP 26.0 ml/m2 [facility] LA/aortic root ratio 1.24 [facility] LV E/e', lateral 16.8 [facility] LV E/e', medial 20.5 [facility] LV e', lateral 5.40 cm/s [facility] LV e', medial 4.50 cm/s [facility] LVOT mean velocity, S 0.7 m/s [facility] LV E/e', average 19 [facility] Mitral E/A ratio, peak 1.60 [facility] Heart Rate 73.0 bpm [facility] IVS thickness, ED, PLAX 1.1 cm [facility] LV PW thickness, ED, PLAX 1.3 0.6 - 1.1 cm [facility] Anatomical Region Laterality Modality Ultrasound Narrative 03/01/2024 16:02 EDT ?Left??Ventricle: Left ventricular systolic function was normal with an ejection fraction of 60-65%. Findings consistent with left ventricular diastolic dysfunction. Doppler parameters are consistent with high ventricular filling pressure. ?Left??Atrium: No right to left shunting observed with agitated saline contrast injection at rest and with Valsalva. ?Right??Ventricle: The right ventricular cavity was normal in size. Right ventricular systolic function was normal. Left Ventricle The left ventricular cavity was normal in size. Left ventricular systolic function was normal with an ejection fraction of 60-65%. Findings consistent with left ventricular diastolic dysfunction. Doppler parameters are consistent with high ventricular filling pressure. Left ventricular wall thickness was not well visualized. Left ventricular wall motion was normal; there were no regional wall motion abnormalities. Right Ventricle The right ventricular cavity was normal in size. Right ventricular systolic function was normal. Right ventricular wall thickness was normal. Left Atrium Left atrial cavity was mildly dilated. No right to left shunting observed with agitated saline contrast injection at rest and with Valsalva. Right Atrium The right atrium was normal in size. IVC/SVC The inferior vena cava was normal in size. The inferior vena cava demonstrated a diameter of <=21 mm and collapses >50%; therefore, the right atrial pressure is estimated at 0-5 mmHg. Mitral Valve Mitral valve structure was normal. There was mild annular calcification. There was trace mitral regurgitation. There was no significant mitral valve stenosis. The mean gradient was 2 mmHg at a heart rate of 73.0 bpm. Tricuspid Valve Tricuspid valve structure was normal. There was trace tricuspid valve regurgitation. There was no tricuspid valve stenosis. Aortic Valve The aortic valve structure was trileaflet. The aortic leaflets were not thickened. There was no aortic valve stenosis. There was no aortic valve regurgitation. AV Peak Velocity: 1.3 m/s. AV Mean Gradient: 4 mmHg. AV Area VTI: 2.5 cm2. Pulmonic Valve There was no significant pulmonic valve regurgitation. There was no pulmonic valve stenosis. Ascending Aorta The aortic root was normal in size. The ascending aorta was not well visualized. Pericardium There was no pericardial effusion. Pulmonic Artery Unable to assess PA pressure, due to suboptimal tricuspid regurgitation envelope. Study Details Study status: Routine. Transthoracic echocardiography. M-Mode, complete 2D, complete spectral Doppler, and color Doppler.Scanning was performed from the apical, parasternal, subcostal and suprasternal acoustic windows. Overall the study quality was adequate. Images were obtained using cardiac ultrasound machine [id number]. Vik De Anda MD CARDIAC ECHO ORDERAB LES * XR CHEST PORTABLE 1 VIEW (03/01/2024 11:52 EDT) Anatomical Region Laterality Modality Computed Radiogr aphy 03/01/2024 12:3 1 EDT Impressions 03/01/2024 12:31 EDT Cardiomegaly and possible hazy airspace opacities, raising the possibility of mild pulmonary edema. Please note, assessment of the lungs is limited due to patient body habitus. [id number] Narrative 03/01/2024 12:31 EDT XR CHEST PORTABLE 1 VIEW ?? Signs and Symptoms/Comments: ??stroke; Comparisons: None. FINDINGS: Chest: A single upright AP view was performed. Lungs: Apparent bilateral hazy airspace opacities, however this could be incidental to patient body habitus. Pleura: No pneumothorax or pleural effusion identified. Mediastinum: Cardiomegaly. Bones: Unremarkable. Resulting Agency Comment [id number] Procedure Note oLbo Siegel MD - 03/01/2024 XR CHEST PORTABLE 1 VIEW Signs and Symptoms/Comments: stroke; Comparisons: None. FINDINGS: Chest: A single upright AP view was performed. Lungs: Apparent bilateral hazy airspace opacities, however this could beincidental to patient body habitus. Pleura: No pneumothorax or pleural effusion identified. Mediastinum: Cardiomegaly. Bones: Unremarkable. IMPRESSION Cardiomegaly and possible hazy airspace opacities, raising the possibilityof mild pulmonary edema. Please note, assessment of the lungs is limiteddue to patient body habitus. [id number] Benny Ferreira MD IMG DIAGNOSTIC I MAGING ORDERABLES * (ABNORMAL) POCT GLUCOSE, INTERFACED (03/01/2024 11:25 EDT) Glucose, POC 109(H) 70 - 100 mg/dL 03/01/2024 11:26 EDT [facility] HN LAB POC COMMENT (GLUCOSE) Test Performed in ED 03/01/2024 11:26 EDT [facility] Blood CAPILLARY BLOOD / Unknown 03/01/2024 11:25 EDT 03/01/2024 11:26 EDT Benny Ferreira MD POINT OF CARE TE ST ORDERABLES Performing Organization Address [facility]/State/ZIP Co de Phone Number [facility] [address] [place] [address] * EKG 12-LEAD (03/01/2024 10:10 EDT) 03/01/2024 10:1 0 EDT Narrative [facility] - 03/01/2024 16:38 EDT ? [facility] ? Test Date: ?2024-03-01 Pat Name: ? KIP SMTIH ?Department: ? Room: ? Gender: ? Male ? Sharepoint Manager: ?? HERON : ?1955 ? Requested By: RADHA WHITFIELD Order Number: [id number] ? Reading : ?? SAMARIA DORSEY MD ? Measurements Intervals ?Taft ? Rate: ? 94 ? P: ?63 ND: ? 224 ?QRS: ?47 QRSD: ? 96 ? T: ?61 QT: ? 368 ? QTc: ?460 ? Interpretive Statements Sinus rhythm with 1st degree AV block with premature atrial complexes Minimal voltage criteria for LVH, may be normal variant No previous ECG available for comparison I reviewed the tracing and have either agreed or edited the findings in this report. Electronically Signed On 03-01-2024 16:38:27 EDT by SAMARIA DORSEY MD. Procedure Note Samaria Dorsey MD - 03/01/2024 [facility] [place] Date: 2024-03-01 Pat Name: KIP SMITH Department: Room: Gender: Male Sharepoint Manager: HERON : 1955 Requested By: RADHA KELLER Order Number: [id number] Reading MD: SAMARIA DORSEY MD Measurements Intervals Taft Rate: 94 P: 63 ND: 224 QRS: 47 QRSD: 96 T: 61 QT: 368 QTc: 460 Interpretive Statements Sinus rhythm with 1st degree AV block with premature atrial complexes Minimal voltage criteria for LVH, may be normal variant No previous ECG available for comparison I reviewed the tracing and have either agreed or edited the findings inthis report. Electronically Signed On 03-01-2024 16:38:27 EDT by SAMARIA PICKETT. Benny Ferreira MD CARDIAC ECG [facility] * (ABNORMAL) THYROID CASCADE (03/01/2024 10:08 EDT) Pathologist [facility] TSH 4.69(H) 0.47 - 4.68 mIU/L 03/01/2024 20:57 EDT [facility] Blood VENOUS BLOOD / Unknown Venipuncture / Unknown 03/01/2024 10:08 EDT 03/01/2024 10:52 EDT [facility] - 03/01/2024 20:57 EDT NOTE: The results of this assay can be falsely lowered due to the consumption of Biotin. Vik De Anda MD CHEMISTRY & BLOOD GA S ORDERABLES Performing Organization Address City/[facility]/ZIP Co de Phone Number [facility] [address] [place] [address] * TROPONIN I (03/01/2024 10:08 EDT) Troponin I (ng/mL) <0.034 <0.034 ng/mL 03/01/2024 11:23 EDT [facility] Blood VENOUS BLOOD / Unknown Venipuncture / Unknown 03/01/2024 10:08 EDT 03/01/2024 10:52 EDT [facility] - 03/01/2024 11:23 EDT The results of this assay can be falsely lowered due to the consumption of Biotin. Benny Ferreira MD CHEMISTRY & BLOO D GAS ORDERABLES Performing Organization Address [facility] Co de Phone Number [facility] [address] [place] [address] * PTT (03/01/2024 10:08 EDT) PTT 30 26 - 37 secs 03/01/2024 11:03 EDT [facility] Blood VENOUS BLOOD / Unknown Venipuncture / Unknown 03/01/2024 10:08 EDT 03/01/2024 10:52 EDT Benny Ferreira MD HEMATOLOGY & PF4 ORDERABLES Performing Organization Address [facility] Number [facility] [address] [place] [address] * PROTIME (03/01/2024 10:08 EDT) I.N.R. 1.1 0.9 - 1.1 Ratio 03/01/2024 11:03 EDT [facility] Pro Time 12.0 9.7 - 12.8 secs 03/01/2024 11:03 EDT [facility] Blood VENOUS BLOOD / Unknown Venipuncture / Unknown 03/01/2024 10:08 EDT 03/01/2024 10:52 EDT Narrative [facility] - 03/01/2024 11:03 EDT Moderate Intensity Coumadin INR = 2.0-3.0 Adjustments in anticoagulant therapy dose should be based on the INR and NOT on the Protime. Benny Ferreira MD HEMATOLOGY & PF4 ORDERABLES Performing Organization Address [facility] Co de Phone Number [facility] [address] [place] [address] * (ABNORMAL) COMPLETE BLOOD COUNT AND DIFFERENTIAL (03/01/2024 10:08 [facility]) WBC 9.86 4.00 - 10.40 K/cmm 03/01/2024 10:55 [facility] RBC 4.86 4.36 - 5.78 M/cmm 03/01/2024 10:55 [facility] Hemoglobin 15.8 13.8 - 17.3 g/dL 03/01/2024 10:55 [facility] HCT 47.5 39.5 - 50.2 % 03/01/2024 10:55 [facility] MCV 98(H) 81 - 95 fL 03/01/2024 10:55 [facility] MCH 32.5 27.6 - 33.0 pg 03/01/2024 10:55 [facility] MCHC 33.3 32.8 - 36.4 g/dL 03/01/2024 10:55 [facility] RDW-CV 13.3 <14.2 % 03/01/2024 10:55 [facility] RDW-SD 47.6(H) <46.0 fl 03/01/2024 10:55 [facility] PLT 241 141 - 377 K/cmm 03/01/2024 10:55 [facility] MPV 10.9 9.5 - 12.7 fL 03/01/2024 10:55 [facility] % Neutrophils 39.6 % 03/01/2024 10:55 [facility] % Lymphocytes 48.7 % 03/01/2024 10:55 [facility] % Monocytes 8.2 % 03/01/2024 10:55 [facility] % Eosinophils 2.5 % 03/01/2024 10:55 [facility] % Basophils 0.6 % 03/01/2024 10:55 [facility] % Immature Grans 0.4 <0.9 % 03/01/20 10:55 [facility] Absolute Neutrophils 3.90 2.20 - 8.85 K/cmm 03/01/2024 10:55 [facility] Absolute Lymphocytes 4.80(H) 1.09 - 3.30 K/cmm 03/01/2024 10:55 [facility] Absolute Monocytes 0.81(H) 0.10 - 0.80 K/cmm 03/01/2024 10:55 [facility] Absolute Eosinophils 0.25 0.03 - 0.61 K/cmm 03/01/2024 10:55 [facility] ABS Basophils 0.06 0.01 - 0.11 K/cmm 03/01/2024 10:55 [facility] Absolute Immature Grans 0.04 0.00 - 0.06 K/cmm 03/01/2024 10:55 [facility] Type of Differential: Auto 03/01/2024 10:55 EDT [facility] Blood VENOUS BLOOD / Unknown Venipuncture / Unknown 03/01/2024 10:08 EDT 03/01/2024 10:52 EDT Benny Ferreira MD PACKAGES & DNA P RANJITHE ORDERABLES Performing Organization Address City/[facility]/ZIP Co de Phone Number [facility] [address] [place] [id number] * T4 FREE (03/01/2024 10:08 EDT) T4, Free 1.1 0.8 - 2.2 ng/dL 03/01/2024 22:10 EDT [facility] Blood VENOUS BLOOD / Unknown Venipuncture / Unknown 03/01/2024 10:08 EDT 03/01/2024 10:52 EDT Vik De Anda MD CHEMISTRY & BLOOD GA S ORDERABLES [facility] [address] [place] [address] * MAGNESIUM (03/01/2024 10:08 EDT) Pathologist [facility] Magnesium 1.9 1.7 - 2.8 mg/dL 03/01/2024 11:29 EDT [facility] Blood VENOUS BLOOD / Unknown Venipuncture / Unknown 03/01/2024 10:08 EDT 03/01/2024 10:52 EDT Benny Ferreira MD CHEMISTRY & BLOO D GAS ORDERABLES [facility] [address] [place] [address] * (ABNORMAL) HEMOGLOBIN A1C (03/01/2024 10:08 EDT) [facility] Hemoglobin A1c 5.8(H) <5.7 % 03/02/2024 13:36 EDT [facility] Comment: Glycemic Status References: Normal: ??<5.7% Pre-Diabetes: ??5.7% - 6.4% Diagnostic of Diabetes: ??> or = 6.5% (if confirmed) Est Avg Glucose 120 mg/dL 13:36 EDT [facility] Comment:The eAG represents t he A1c result expressed as average glucose in mg/dL. Blood VENOUS BLOOD / Unknown Venipuncture / Unknown 03/01/2024 10:08 EDT 03/01/2024 10:52 EDT Vik De Anda MD CHEMISTRY & BLOOD GA S ORDERABLES [facility] [address] [place] [address] * ETHANOL, BLOOD (03/01/2024 10:08 EDT) Pathologist [facility] Ethanol, Blood <10 <10 mg/dL mg/dL 03/01/2024 11:29 EDT [facility] Comment:Healthy, non-drinkin g individuals will have an ethanol concentration of <10 mg/dL. Blood VENOUS BLOOD / Unknown Venipuncture / Unknown 03/01/2024 10:08 EDT 03/01/2024 10:52 EDT [facility] - 03/01/2024 11:29 EDT [place] legal blood alcohol limit = 80 mg/dl (0.08%) Benny Ferreira MD CHEMISTRY & BLOO D GAS ORDERABLES [facility] [address] [place] [address] * CT ANGIO HEAD NECK (03/01/2024 10:06 EDT) Anatomical Region Laterality Modality Head and Neck Computed Tomogra phy 03/01/2024 10:3 2 EDT Addenda Addendum by William Barrios MD on 03/01/2024 14:54 EDT Addendum: ADDENDUM: CTA was performed during the same session as noncontrast CT head due to neurologic deficit and concern for large vessel occlusion/ischemic stroke. [id number] Impressions 03/01/2024 10:[address] ANGIOGRAM IMPRESSION: 1. Irregular narrowing of the right and left cavernous internal carotid arteries with moderate stenosis on the right and moderate/severe stenosis on the left. 2. Mild irregular narrowing of the right M1 segment. 3. Patent dominant left vertebral artery and variant PICA termination of the right vertebral artery. CT ANGIOGRAM OF THE NECK: Unremarkable neck soft tissues. Clear lung apices. Mild to moderate degenerative spondylosis of the cervical spine. Aortic arch: Normal 3 vessel aortic arch. No significant stenosis of the great vessel origins. Anterior Circulation: Right CCA: No significant stenosis, dissection or pseudoaneurysm. Right ICA: Calcified and noncalcified plaque with moderate stenosis of the proximal right ICA. Left CCA: No significant stenosis, dissection or pseudoaneurysm. Left ICA: Calcified and noncalcified plaque with mild stenosis of the proximal left ICA. Posterior Circulation: Right vertebral artery: Patent diminutive right vertebral artery with normal variant PICA termination. Left vertebral artery: Patent dominant left vertebral artery. NECK CT ANGIOGRAM IMPRESSION: 1. Right ICA: Moderate stenosis (50 to 69%). 2. Left ICA: Mild stenosis (less than 50%). COMMENT: Reference per NASCET criteria for degree of stenosis: Mild: less than 50% stenosis. Moderate: 50-69% stenosis. Severe: 70-94% stenosis. Near occlusion: 95-99% stenosis. I personally communicated these findings to Dr. Ferreira on 03/01/2024 10:31 AM. [id number] Narrative 03/01/2024 10:32 EDT INDICATION: stroke symptoms; Neuro deficit, acute, stroke suspected; stroke symptoms;. COMPARISON: None. TECHNIQUE: Angiogram of the head and neck was performed with nonionic IV contrast. Precontrast and postcontrast enhanced scans of the brain were obtained. Postcontrast enhanced scans of the neck were obtained. 100 mL of Omnipaque 350 was administered intravenously. Axial images, multiplanar reformatted and 3-D MIP images were obtained. FINDINGS: CT ANGIOGRAM OF THE HEAD: Anterior Circulation: Right ICA: Irregular narrowing of the cavernous right ICA with moderate stenosis. Right GAGAN: Unremarkable. No occlusion or significant stenosis. No aneurysm. Right MCA: Mild irregular narrowing of the right M1 segment. No significant stenosis, occlusion or aneurysm. Left ICA: Irregular narrowing of the cavernous left ICA with moderate/severe stenosis. Left GAGAN: Unremarkable. No occlusion or significant stenosis. No aneurysm. Left MCA: Unremarkable. No occlusion or significant stenosis. No aneurysm. Posterior Circulation: Right [employer] MACHINE OPERATOR: Unremarkable. No occlusion or significant stenosis. No aneurysm. 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 Left SWE[employer] MACHINE OPERATOR: Unremarkable. No occlusion or significant stenosis. No aneurysm. Left vertebral artery: Patent dominant left vertebral artery. Basilar artery: Unremarkable. No occlusion or significant stenosis. No aneurysm. Resulting Agency Comment [id number] Procedure Note William Barrios MD - 03/01/2024 INDICATION: stroke symptoms; Neuro deficit, acute, stroke suspected;stroke symptoms;. COMPARISON: None. TECHNIQUE: Angiogram of the head and neck was performed with nonionic IVcontrast. Precontrast and postcontrast enhanced scans of the brain wereobtained. Postcontrast enhanced scans of the neck were obtained. 100 mL ofOmnipaque 350 was administered intravenously. Axial images, multiplanarreformatted and 3-D MIP images were obtained. FINDINGS: CT ANGIOGRAM OF THE HEAD: Anterior Circulation: Right ICA: Irregular narrowing of the cavernous right ICA with moderatestenosis. Right GAGAN: Unremarkable. No occlusion or significant stenosis. Noaneurysm. Right MCA: Mild irregular narrowing of the right M1 segment. Nosignificant stenosis, occlusion or aneurysm. Left ICA: Irregular narrowing of the cavernous left ICA withmoderate/severe stenosis. Left GAGAN: Unremarkable. No occlusion or significant stenosis. Noaneurysm. Left MCA: Unremarkable. No occlusion or significant stenosis. Noaneurysm. Posterior Circulation: Right SWEET GOODS MACHINE OPERATOR: Unremarkable. No occlusion or significant stenosis. Noaneurysm. Right vertebral artery: Variant PICA termination of the right vertebralartery. Left SWEET GOODS MACHINE OPERATOR: Unremarkable. No occlusion or significant stenosis. Noaneurysm. Left vertebral artery: Patent dominant left vertebral artery. Basilar artery: Unremarkable. No occlusion or significant stenosis. Noaneurysm. IMPRESSION HEAD CT ANGIOGRAM IMPRESSION: 1. Irregular narrowing of the right and left cavernous internal carotidarteries with moderate stenosis on the right and moderate/severe stenosison the left. 2. Mild irregular narrowing of the right M1 segment. 3. Patent dominant left vertebral artery and variant PICA termination ofthe right vertebral artery. CT ANGIOGRAM OF THE NECK: Unremarkable neck soft tissues. Clear lung apices. Mild to moderatedegenerative spondylosis of the cervical spine. Aortic arch: Normal 3 vessel aortic arch. No significant stenosis of thegreat vessel origins. Anterior Circulation: Right CCA: No significant stenosis, dissection or pseudoaneurysm. Right ICA: Calcified and noncalcified plaque with moderate stenosis of theproximal right ICA. Left CCA: No significant stenosis, dissection or pseudoaneurysm. Left ICA: Calcified and noncalcified plaque with mild stenosis of theproximal left ICA. Posterior Circulation: Right vertebral artery: Patent diminutive right vertebral artery withnormal variant PICA termination. Left vertebral artery: Patent dominant left vertebral artery. NECK CT ANGIOGRAM IMPRESSION: 1. Right ICA: Moderate stenosis (50 to 69%). 2. Left ICA: Mild stenosis (less than 50%). COMMENT: Reference per NASCET criteria for degree of stenosis: Mild: lessthan 50% stenosis. Moderate: 50-69% stenosis. Severe: 70-94% stenosis.Near occlusion: 95- 99% stenosis. I personally communicated these findings to Dr. Ferreira on 410:31 AM. [id number] Benny Ferreira MD IMG CT ORDERABLE S * CT HEAD WO CONTRAST (03/01/2024 10:02 EDT) Anatomical Region Laterality Modality Head Computed Tomogra phy 03/01/2024 10:1 5 EDT Addenda Addendum by William Barrios MD on 03/01/2024 10:32 EDT Addendum: I personally communicated these findings to Dr. Ferreira on 03/01/2024 10:31 AM. [id number] Impressions 03/01/2024 10:15 EDT 1. Vague hypodensity within the left basal ganglia suspicious for lacunar infarct, of uncertain age. 2. Indeterminate subcutaneous 15 mm soft tissue density nodule containing calcifications within the posterolateral right scalp. Correlate clinically. [id number] Narrative 03/01/2024 10:15 EDT INDICATION: Stroke symptoms; Neuro deficit, acute, stroke suspected; Stroke symptoms;. COMPARISON: None. TECHNIQUE: Noncontrast CT scan of the head was performed. Axial images and multiplanar reformations were reviewed. FINDINGS: Brain: Global cerebral volume loss is consistent with patient age. Decreased attenuation within the white matter tracts of both cerebral hemispheres is nonspecific but typically seen with small vessel disease/chronic white matter ischemic changes of aging. There is a vague hypodensity within the left basal ganglia in the region of the genu of the internal capsule (images 173 through 194, series 202) suspicious for a lacunar infarct of uncertain age. No intracranial hemorrhage or mass effect. No abnormal intra-axial or extra-axial fluid collections. Ventricles: Unremarkable. No hydrocephalus. Paranasal Sinuses and Mastoids: Mucosal thickening of the paranasal sinuses and small mucous retention cyst within the right maxillary sinus. Clear mastoids. Orbits: The ocular globes and retro-orbital fat are normal as visualized.. Bones: Unremarkable. No fracture or suspicious bone lesion. Soft tissues: 15 mm smooth soft tissue density nodule containing calcifications within the subcutaneous tissues of the posterolateral right scalp (image 279, series 202), indeterminate. Correlate clinically. Resulting Agency Comment [id number] Procedure Note William Barrios MD - 03/01/2024 INDICATION: Stroke symptoms; Neuro deficit, acute, stroke suspected;Stroke symptoms;. COMPARISON: None. TECHNIQUE: Noncontrast CT scan of the head was performed. Axial images andmultiplanar reformations were reviewed. FINDINGS: Brain: Global cerebral volume loss is consistent with patient age.Decreased attenuation within the white matter tracts of both cerebralhemispheres is nonspecific but typically seen with small vesseldisease/chronic white matter ischemic changes of aging. There is a vaguehypodensity within the left basal ganglia in the region of the genu of theinternal capsule (images 173 through 194, series 202) suspicious for alacunar infarct of uncertain age. No intracranial hemorrhage or masseffect. No abnormal intra-axial or extra-axial fluid collections. Ventricles: Unremarkable. No hydrocephalus. Paranasal Sinuses and Mastoids: Mucosal thickening of the paranasalsinuses and small mucous retention cyst within the right maxillary sinus.Clear mastoids. Orbits: The ocular globes and retro-orbital fat are normal asvisualized.. Bones: Unremarkable. No fracture or suspicious bone lesion. Soft tissues: 15 mm smooth soft tissue density nodule containingcalcifications within the subcutaneous tissues of the posterolateral rightscalp (image 279, series 202), indeterminate. Correlate clinically. IMPRESSION 1. Vague hypodensity within the left basal ganglia suspicious for lacunarinfarct, of uncertain age. 2. Indeterminate subcutaneous 15 mm soft tissue density nodule containingcalcifications within the posterolateral right scalp. Correlateclinically. [id number] Benny Ferreira MD IMG CT ORDERABLE S * Critical Care (03/01/2024 9:49 EDT) [facility] EKG - 03/01/2024 9:49 EDT Benny Ferreira MD ? 03/01/2024 18:00 Critical Care Performed by: Benny Ferreira MD Authorized by: Benny Ferreira MD ?? Critical care provider statement: ??Critical care time (minutes): 60. 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 Comments: ?? Patient with acute CVA, requiring corroboration of history from family members who are present, EMS, full telestroke consultation with [facility] stroke neurology was also obtained and treatment plan was discussed with them and then carried out Benny Ferreira MD PROCEDURE/MINOR SURGICAL ORDERABLES Performing Organization Address City/State/[facility] Co de Phone Number [facility] EKG from Last 3 Months Advance Directives For more information, please contact: [phone] * Full Code (Latest Code Status on File) Date Activated Date Inactivated Comments 03/01/2024 22:01 03/04/2024 13:57 Discussed with p atient and family present Question Answer Comments When the patient has NO PULSE: Full Code / CPR Who Made the Decision? Patient * Full Code Date Activated Date Inactivated Comments 03/01/2024 13:06 03/01/2024 22:01 Question Answer Comments When the patient has NO PULSE: Full Code / CPR Who Made the Decision? Default/Not Discussed Care Teams Automatic Engraver Relationship Specialty Start Date End Date Rhonda Han FNP PCP - General 02/23/17
--- OUTSIDE RECORDS SUMMARY | 2024-03-17 09:07 | XMS_ITS | Encounter Summary ---
Author Organization [facility] [address] Care Team Providers Care Drawing In Machine Tender Helper Name Role Phone Rhonda Han APRN Primary Care Provider + Encounter Details Date Type Department Care Team (Late st Contact Info) Description 07/10/2010 10:00 AM EST Follow-Up [address] [address] Anmol Rowell MD [facility] [place] [place] [address] Social History Tobacco Use Types Packs/Day Years Used Date Smoking Tobacco: Never Assessed Sex and Gender Information Value Date Recorded Sex Assigned at Not on file Gender Identity Not on file Sexual Orientation Not on file documented as of this encounter Plan of Treatment Not on file documented as of this encounter Visit Diagnoses Not on filedocumented in this encounter Care Teams Drawing In Machine Tender Helper Relationship Specialty Start Date End Date Rhonda Han APRN [address] [place] [address] PCP - General 06/25/10 documented as of this encounter
--- OUTSIDE RECORDS SUMMARY | 2024-03-17 09:07 | XMS_ITS | Encounter Summary ---
Author Organization [facility] Address [address] [place] [address] Care Team Providers Care Printer Machine Name Role Phone Rhonda Han WIND TUNNEL ENGINEER Primary Care Provider [phone] Reason for Visit * Reason Onset Date Comments Cardiac Testing 03/04/2024 CHANDLER Order Encounter Details Date Type Department Care Team (Late st Contact Info) Description 03/04/2024 Telephone [facility] [address] [place] [address] Maliha Ross MD [address] [facility] [address] [place] [address] Cardiac Testing (CHANDLER Order) Social History Tobacco Use Types Packs/Day Years Used Date Smoking Tobacco: Never Smokeless Tobacco: Current Chew Alcohol Use Standard Drinks/Week Comments Yes 5 (1 standard drink = 0.6 oz pur e alcohol) [facility] Utilities Answer Date Recorded In the past 12 months has [employer], gas, oil, or water company threatened [...] time in the past 12 m [facility], were you homeless or living in a jail (including now)? No 03/02/2024 Interpersonal Safety Answer Date Record ed How often does anyone, kassie sales family, hit, punch or physically hurt you? 03/01/2024 How often does anyone, kassie sales family, insult, scream, curse or threaten to hurt you? 03/01/2024 Sex and Gender Information Value Date Recorded Sex Assigned at Not on file Gender Identity Not on file Sexual Orientation Not on file documented as of this encounter Functional Status Functional Status Response Date of Assess ment Are you deaf or do you have serious difficulty h earing? No 03/01/2024 Are you blind or do you have serious difficulty seeing, even when wearing glasses? No 03/01/2024 Do you have serious difficul ty walking or climbing stairs? (5 years old or older) No 03/01/2024 Do you have difficulty dress ing or bathing? (5 years old or older) No 03/01/2024 Because of a physical, menta l, or emotional condition, do you have difficulty doing errands alone such as visiting a doctor's office or shopping? (15 years old or older) No 03/01/2024 Cognitive Status Response Date of Assessm ent Because of a physical, menta l, or emotional condition, do you have serious difficulty concentrating, remembering, or making decisions? (5 years old or older) No 03/01/2024 documented as of this encounter Miscellaneous Notes * Telephone Encounter - Juliet Landers - 03/04/2024 0813 EDT Patient has order for 30 day CHANDLER. Please review and confirm that this is the correct order. Thank you! HP documented in this encounter Plan of Treatment Upcoming Encounters Date Type Department Care Team (Late st Contact Info) Description 04/22/2024 17:00 EDT Appointment [facility] CT Scan [address] [place] [address] documented as of this encounter Visit Diagnoses Not on filedocumented in this encounter Care Teams Printer Machine Relationship Specialty Start Date End Date Rhonda Han FNP PCP - General 02/23/17 documented as of this encounter
--- OUTSIDE RECORDS SUMMARY | 2024-03-17 09:07 | XMS_ITS | Encounter Summary ---
Author Organization [facility] Address [address] [place] [address] Care Team Providers Care Miller Kiln Dried Salt Name Role Phone Nathan Han SDET Primary Care Provider [phone] Reason for Visit * Reason Comments Wrist Injury right Encounter Details Date Type Department Care Team (Late st Contact Info) Description 02/23/2021 9:00 EDT Walk-In [facility] [address] [place] [address] [id number] Domi Kee, ANAID [address] [facility] [address] [place] [address] Sprain and strain of right wrist (Primary Dx) Social History Tobacco Use Types Packs/Day Years Used Date Smoking Tobacco: Never Assessed Sex and Gender Information Value Date Recorded Sex Assigned at Not on file Gender Identity Not on file Sexual Orientation Not on file documented as of this encounter Last Filed Vital Signs Vital Sign Reading Time Taken Comments Blood Pressure 152/88 02/23/2021 0909 EDT Pulse 73 02/23/2021 0909 EDT Temperature 36.5 ??C (97.7 ??F) 02/23/2021 0909 EDT Respiratory Rate 18 02/23/2021 0909 EDT Oxygen Saturation 100% 02/23/2021 0909 EDT Inhaled Oxygen Concentration - - Weight - - Height - - Body Mass Index - - documented in this encounter Patient Instructions * Patient Instructions* Domi Kee, UPS DRIVER - 02/23/2021 9:00 EDT Images from the original note were not included. [facility] Patient Instructions Wrist Sprain: Care Instructions Your Care Instructions Your wrist hurts because you have stretched or torn ligaments, which connect the bones in your wrist. Wrist sprains usually take from 2 to 10 weeks to heal, but some take longer. Usually, the more painyou have, the more severe your wrist sprain is and the longer it will take to heal. You can heal faster and regain strength in your wrist with good home treatment. Follow-up care is a romano part of your treatment and safety. Be sure to make and go to all appointments, and call your doctor if you are having problems. It's also a good idea to know your test resultsand keep a list of the medicines you take. How can you care for yourself at home? ?? Prop up your arm on a pillow when you ice it or anytime you sit or lie down for the next 3 days.Try to keep your wrist above the level of your heart. This will help reduce swelling. ?? Put ice or cold packs on your wrist for 10 to 20 minutes at a time. Try to do this every 1 to 2 hours for the next 3 days (when you are awake) or until the swelling goes down. Put a thin cloth between the ice pack and your skin. ?? After 2 or 3 days, if your swelling is gone, apply a heating pad set on low or a warm cloth to your wrist. This helps keep your wrist flexible. Some doctors suggest that you go back and forth between hot and cold. ?? If you have an elastic bandage, keep it on for the next 24 to 36 hours. The bandage should be snug but not so tight that it causes numbness or tingling. To rewrap the wrist, wrap the bandage around the hand a few times, beginning at the fingers. Then wrap it around the hand between the thumb andindex finger, ending by circling the wrist several times. ?? If your doctor gave you a splint or brace, wear it as directed to protect your wrist until it has healed. ?? Take pain medicines exactly as directed. ? If the doctor gave you a prescription medicine for pain, take it as prescribed. ? If you are not taking a prescription pain medicine, ask your doctor if you can take an xyvd-ldc-mcxsawd medicine. ?? Try not to use your injured wrist and hand. When should you call for help? Call your doctor now or seek immediate medical care if: ? Your hand or fingers are cool or pale or change color. Watch closely for changes in your health, and be sure to contact your doctor if: ? Your pain gets worse. ? Your wrist has not improved after 1 week. Where can you learn more? Go to https://www.[employer]in[employer]ings.AlwaySupport/DoubleUp or log into your [employer] account at https://Oxitec.DoubleUp.Cruise Compare Enter G541 in the search box to learn more about Wrist Sprain: Care Instructions. Current as of: October 03, 2019?Content Version: 12.6 ?? [id number] [employer]. Care instructions adapted under license by [facility]. If you have questions about a medical condition or this instruction, always ask your healthcare professional. [employer] disclaims any warranty or liability for your use of this information. documented in this encounter Progress Notes * Shireen Mcdowell RN - 02/23/2021 0900 EDT CC/HPI: Fell and caught self with right arm 02/18. Reports pain, limited range of motion, and swelling to area. Covid Screening: In the last 72 hours, has the patient had: New or unusual cough, shortness of breath, new nasal congestion, sore throat, fever, chills, body aches, or new loss of taste or smell without a reasonable alternative diagnosis*? (If yes, assign patient to ARC schedule) NO In the past 14 days, has the patient had a confirmed close Covid exposure (<6ft for > 15mins in 24hr period)? NO In the past 14 days, has the patient returned from international travel? NO Is the patient fully Covid vaccinated? (If close exposure or international travel but fully vaccinated, remains NRC. If close exposure or international travel and unvaccinated, assign to ARC) NO *may be determined by RN or in discussion with available provider (E BUSINESS CONSULTANT's and CCA's can defer to Charge Nurse to complete triage when appropriate) PCP: NATHAN HAN * Domi Kee, UPS DRIVER - 02/23/2021 0900 EDT [facility] Chief Complaint(s): Wrist Injury (right) HPI: Onset 5 days ago with injury to right hand and wrist. Fell and caught self with right upper extremity. Associated with pain and swelling of right hand and wrist. Pain radiates to right elbow. Has tried sling, ice and elevation. I have reviewed current problem list and current medications. ROS: Review of Systems Constitutional: Negative. Respiratory: Negative. Cardiovascular: Negative. Musculoskeletal: Positive for joint pain. Skin: Negative. Neurological: Negative. Objective: Examination: Vitals: BP (!) 152/88 Pulse 73 Temp 36.5 ??C (97.7 ??F) (Tympanic) Resp 18 SpO2 100% There is no height or weight on file to calculate BMI. Physical Exam Vitals and nursing note reviewed. Constitutional: Appearance: Normal appearance. Cardiovascular: Pulses: Normal pulses. Pulmonary: Effort: Pulmonary effort is normal. Musculoskeletal: Right elbow: No deformity or effusion. Normal range of motion. No tenderness. Right forearm: No swelling, edema, deformity or tenderness. Right wrist: Swelling and tenderness (at navicular) present. No deformity or snuff box tenderness. Normal range of motion. Normal pulse. Right hand: Swelling, deformity (at baseline; dupytren's contractures 5th finger and plam of hand over 3rd metacarpal), tenderness and bony tenderness (navicular and over 3-5th metacarpals) present. Decreased range of motion. Skin: General: Skin is warm and dry. Neurological: Mental Status: He is alert. Data reviewed with patient (past results):Independent visualization of image, tracing, or specimen itself No evidence of acute fracture on initial xray reading by this provider. Will call patient with any radiology discrepancy Assessment & Plan: 1. Sprain and strain of right wrist Continue ice and elevation. Stop using sling. Follow up with pcp if not improving in 1-2 weeks. - XR WRIST RIGHT 3 OR MORE VIEWS - WRIST SPLINT documented in this encounter Plan of Treatment Upcoming Encounters Date Type Department Care Team (Late st Contact Info) Description 04/22/2024 17:00 EDT Appointment [facility] CT Scan [address] [place] [address] Scheduled Orders Name Type Priority Associated Diagnoses Orde r Schedule XR WRIST RIGHT 3 OR MORE VIEWS Imaging Routine Sprain and strain of right wrist Ordered: 02/23/2021 documented as of this encounter Procedures Procedure Name Priority Date/Time Associated Diagnosis Comments XR WRIST RIGHT 3 OR MORE VIEWS 02/23/2021 10:56 EDT documented in this encounter Results * XR WRIST RIGHT 3 OR MORE VIEWS (02/23/2021 10:56 EDT) Anatomical Region Laterality Modality Upper Extremities Right Computed Radio graphy 02/23/2021 10:5 6 EDT Narrative 02/23/2021 10:56 EDT ? EXAM: RADIOLOGY EXPRESS CARE/EXP CARE WRI EX. D/ (0938) ? CLINICAL INFORMATION: ? M79.641. FALL, INJURY. ? PROCEDURE INFORMATION: ? Exam: XR Right Wrist ? Exam date and time: 02/23/2021 9:18 AM ? Age: 66 years old ? Clinical indication: Pain; Wrist; Right; Additional info: M79.641. ? Fall, injury. ? TECHNIQUE: ? Imaging protocol: XR Right wrist. ? Views: 3 or more views. ? COMPARISON: ? No relevant prior studies available. ? FINDINGS: ? Bones/joints: Widening of the scapholunate joint. No acute bony ? injury in the visualized right wrist. Well corticated 5 mm ossific ? density about the volar aspect of the radiocarpal joint. ? Degenerative change. ? Soft tissues: Mild soft tissue swelling. ? IMPRESSION: ? 1. Widening of the scapholunate joint. ? 2. No acute bony injury in the visualized right wrist. ? REPORT SIGNED IN OTHER VENDOR SYSTEM 02/23/2021 ?Reported By: Jose Lieberman ? CC: ? Transcribed Date/Time: 02/23/2021 (1056) ? Web Methods Developer: ? Printed Date/Time: 02/23/2021 (0136) ? PAGE 1 ? Signed Report ? Procedure Note Jose Lieberman MD - 02/23/2021 EXAM: RADIOLOGY EXPRESS CARE/EXP CARE WRI EX. D/ (0938) CLINICAL INFORMATION: M79.641. FALL, INJURY. PROCEDURE INFORMATION: Exam: XR Right Wrist Exam date and time: 02/23/2021 9:18 AM Age: 66 years old Clinical indication: Pain; Wrist; Right; Additional info: M79.641. Fall, injury. TECHNIQUE: Imaging protocol: XR Right wrist. Views: 3 or more views. COMPARISON: No relevant prior studies available. FINDINGS: Bones/joints: Widening of the scapholunate joint. No acute bony injury in the visualized right wrist. Well corticated 5 mm ossific density about the volar aspect of the radiocarpal joint. Degenerative change. Soft tissues: Mild soft tissue swelling. IMPRESSION: 1. Widening of the scapholunate joint. 2. No acute bony injury in the visualized right wrist. REPORT SIGNED IN OTHER VENDOR SYSTEM 02/23/2021 Reported By: Jose Lieberman CC: Transcribed Date/Time: 02/23/2021 (3591) Web Methods Developer: Printed Date/Time: 02/23/2021 (4001) PAGE 1 Signed Report Domi Kee SUPERINTENDENT FISH HATCHERY IMG DIAGNO STIC IMAGING ORDERABLES documented in this encounter Visit Diagnoses Diagnosis Sprain and strain of right wrist- Primary documented in this encounter Historical Medications * This list may reflect changes made after this encounter. Medication Sig Dispensed Refills Start Date End Date aspirin chewable 81 mg tablet Take 81 mg by mouth daily. 03/01/2024 added in this encounter Orders General Supply Count Last Ordered Date First Or dered Date WRIST SPLINT 1 02/23/2021 documented in this encounter Care Teams Miller Kiln Dried Salt Relationship Specialty Start Date End Date Nathan Han FNP PCP - General 02/23/17 documented as of this encounter
--- OUTSIDE RECORDS SUMMARY | 2024-03-17 09:07 | XMS_ITS | Clinical Summary ---
Author Organization [facility] [place] [address] Care Team Providers Care Dye Reel Operator Name Role Phone Rhonda Han DESIGN INSERTER Primary Care Provider + Social History Tobacco Use Types Packs/Day Years Used Date Smoking Tobacco: Never Assessed Sex and Gender Information Value Date Recorded Sex Assigned at Not on file Gender Identity Not on file Sexual Orientation Not on file Plan of Treatment Health Maintenance Due Date Last Done Comments CT Colonography 1955 Colonoscopy 1955 Colorectal Cancer Screening 1955 FIT DNA 1955 FIT 1955 Sigmoidoscopy (10 year) with FIT yearly 1955 Sigmoidoscopy 1955 Hepatitis C Screening 1971 Lipid Screening 1971 Tdap adult 01/17/1972 Tetanus vaccine 01/17/1972 Zoster vaccine (1 of 2) 2003 Advance Directive 01/17/2008 Pneumoccocal Vaccine: 65+ (1 of 1 - PCV) 2018 Covid-19 Vaccine (1 - 2022-24 season) 2023 Influenza (Flu) vaccine (1 o f 1 - Influenza standard series) 04/03/2024 Care Teams Dye Reel Operator Relationship Specialty Start Date End Date Rhonda Han APRN [address] [place] [address] PCP - General 06/25/10
--- OUTSIDE RECORDS SUMMARY | 2024-03-17 09:07 | XMS_ITS | Encounter Summary ---
Author Organization [facility] Address [address] [place] [address] Care Team Providers Care Electronic Parts Designer Name Role Phone Rhonda Han MISAEL Primary Care Provider [phone] Encounter Details Date Type Department Care Team (Late st Contact Info) Description 03/01/2024 Telemedicine [facility] Telemedicine - Main [place] [address], [place] [id number] Nina Rivera MD [address] [facility], [address] [place] [address] Ischemic stroke (HCC-CMS) (Primary Dx) Social History Tobacco Use Types Packs/Day Years Used Date Smoking Tobacco: Never Smokeless Tobacco: Current Chew Alcohol Use Standard Drinks/Week Comments Yes 5 (1 standard drink = 0.6 oz pur e alcohol) [facility] Utilities Answer Date Recorded In the past [...] any time in the past 12 m [facility], were you homeless or living in a jail (including now)? No 03/02/2024 Interpersonal Safety Answer Date Record ed How often does anyone, kassie sales family, hit, punch or physically hurt you? 03/01/2024 How often does anyone, inclmodesta sales family, insult, scream, curse or threaten [...] No 03/01/2024 documented as of this encounter Consult Notes * Nina Rivera MD - 03/01/2024 1053 EDT KIP SMITH (Male) , : 1955 , MRN: ( [facility] ) , Facility: [facility] ([facility]) , End point: [facility] - ED Case (ID: [id number]) of KIP SMITH (MRN: [facility] ) was submitted at Mar 01 2024, 10:53 am EDT for Telestroke (Facility: [facility] ([facility])) . NIH Stroke Scale 1A 1B 1C 2 3 4 5A 5B 6A 6B 7 8 9 10 11 0 0 0 0 0 0 0 0 0 0 1 0 0 0 0 Score 1 Submitted By Nina Ram Timestamp Mar 01 2024, 11:10 am EDT Imaging Study Name Study Date Relevance CT ANGIO HEAD NECK ThuMar [address] HEAD WO CONTRAST ThuMar 01 2024 Most Relevant Case Notes Saved on Mar 01 2024 at 11:25am EDT by Nina Ram Notes This patient's presentation was discussed with the [facility] Stroke Service using telemedicine. The case was reviewed, including appropriate imaging which included (CT/CTA ). A full Radiology report of studies performed can be found in the patient's medical record once finalized. Brief history: 69-year-old right-handed man with poorly controlled hypertension he was last known well at 8:05 when he was talking to his daughter on the phone and suddenly developed dysarthria. He also noted that his right arm is weak. He reports that he is confident that he was completely fine when he woke up in the morning, and had made coffee for his and talked to her and sounded normal. EMS was called, but his symptoms had resolved upon their arrival. However as he was trying to sign some papers for EMS he started having right arm numbness and was noted to have a drift. He was brought to [facility] where his initial NIHSS was 1 for dysmetria on the right rxqxqr-vy-poab finger which had later resolved He received a noncontrast head CT which shows a hypodensity in the left basal ganglia concerning for an acute/subacute infarct. CTA head and neck is notable for scattered atherosclerosis with at least moderate to severe stenosis of the left cavernous ICA. Upon my evaluation, his neurologic exam is improved, and he feels that he is mostly at baseline except that his right arm is a little numb. NIHSS on my exam 1, for very mild dysmetria on the right kkqyfj-bn-ofxd. He was able to stand up and ambulate independently without any ataxia. Assessment and recommendations: Episode of dysarthria and right arm weakness/numbness, symptoms have improved with very mild right upper extremity numbness, and very subtle dysmetria on right ppxgdz-mu-tydg finger. Imaging shows an acute to subacute infarct in the left basal ganglia, which explains patient's symptoms. I discussed with patient that while he is within the therapeutic time window for thrombolytics, as this imaging finding correlates with his neurological deficits, I worry that he is at increased risk of bleeding. Additionally he is extremely hypertensive to systolic of 250, which increases his risk of bleeding as well. After discussion of risk versus benefits patient is in agreement to defer tPA. Recommended medical therapy, including slowly reducing blood pressure, (permissive hypertension range <220/120), initiating of aspirin and high intensity statin. Recommended additional workup including an MRI, and echocardiogram. And lastly he will benefit from evaluation by Occupational Therapy. RAPID LVO notification was received and CTA images were reviewed to assess for Large Vessel Occlusion. Nina Rivera MD Vascular Neurology Attending As this is a [facility] telestroke consult, recommendations are focused and generally limited to acute reperfusion and transfer decisions. This patient was evaluated via telemedicine. Telestroke consult was requested by (Dr. Ferreira ). The patient was located at ([facility] ). The provider was located in [place]. Per report by originating site, consent for telemedicine services was reviewed and given by the patient and/or surrogate. I spent a total of (45 ) minutes on the date of this encounter reviewingdocumentation and imaging, communicating with other professionals and or the patient/surrogate, medical decision making, coordinating care, and completing medical documentation. Time Tracking Saved on Mar 01 2024 at 11:15am EDT by Nina Ram First Video Start 01 March 2024 10:53:50 EDT Stop 01 March 2024 11:15:06 EDT Duration 00:21:15 First Phone Start Continued - Video Call with Assigned Provider Start 01 March 2024 10:53:55 EDT Stop 01 March 2024 11:15:06 EDT Duration 00:21:11 Imaging: CT Study Time 01 March 2024 09:49:46 EDT Imaging: CT Available 01 March 2024 10:54:40 EDT Imaging: CT Study Time 2 01 March 2024 09:49:46 EDT Imaging: CT Available 2 01 March 2024 10:54:40 EDT Intake Saved on Mar 01 2024 at 10:53am EDT by Nina Ram Patient First Name KIP Patient Last Name EWELINA Date of 1955 (69y 1m) Gender Male Medical Record Number (MRN) [facility] External Visit ID [id number] Case Information & Analytics Care Team & Case Contacts Primary Assignee Nina Ram Care Team Nina Ayala Case Timeline Summary of results The case duration was 32mins. Submission to Provider Assign 0 mins Case Submit +0 hour Patient Details Demographics Full Name KIP SMITH Date of 1955 (69y 1m) Gender Male Address [address] [place] [address] Home Phone [phone] Electronic Signature: Nina Ram, Mar 01 2024, 11:25 am EDT documented in this encounter Plan of Treatment Upcoming Encounters Date Type Department Care Team (Late st Contact Info) Description 04/22/2024 17:00 EDT Appointment [facility] CT Scan [address] [place] [address] documented as of this encounter Visit Diagnoses Diagnosis Ischemic stroke (HCC-CMS)- Primary documented in this encounter Care Teams Electronic Parts Designer Relationship Specialty Start Date End Date Rhonda Han FNP PCP - General 02/23/17 documented as of this encounter
--- OUTSIDE RECORDS SUMMARY | 2024-03-17 09:07 | XMS_ITS | Encounter Summary ---
Author Organization [facility] Address [address] [place] [address] Care Team Providers Care Customer Service Security Officer Name Role Phone Rhonda Han DIMMER BOARD OPERATOR Primary Care Provider [phone] Reason for Visit * Cardiology (Routine/Next Available) - Authorization Not Required Specialty Diagnoses / Procedures [facility] Referred To Contact Diagnoses Cerebrovascular accident (CVA), unspecified mechanism (HCC-CMS) Procedures 30 DAY BOAT HOP Delphine Beltrán PA-C [address] [place] [address] [facility] Referral ID Status Reason Start Date Expiration Date Visits Requested Visits Authorized [id number] Authorization Not Required 03/04/2024 1 1 Encounter Details Date Type Department Care Team (Latest Contact Info) Description 03/11/2024 16:00 EDT Ancillary Procedure [facility] [address] [place] [address] Cerebrovascular accident (CVA), unspecified mechanism ([facility]) Social History Tobacco Use Types Packs/Day Years Used Date Smoking Tobacco: Never Smokeless Tobacco: Current Chew Alcohol Use Standard Drinks/Week Comments Yes 5 (1 standard drink = 0.6 oz pur e alcohol) [facility] Utilities Answer Date Recorded In the past 12 months has [employer] electric, gas, oil, or water company threatened [...] any time in the past 12 m [facility], were you homeless or living in a half-way (including now)? No 03/02/2024 Interpersonal Safety Answer [...] No 03/01/2024 documented as of this encounter Plan of Treatment Upcoming Encounters Date Type Department Care Team (Late st Contact Info) Description 04/22/2024 17:00 EDT Appointment [facility] CT Scan [address] [place] [address] Pending Results Name Type Priority Associated Diagnoses Date /Time 30 DAY BOAT HOP Cardiac Services Routine Cerebrovascular accident (CVA), unspecified mechanism (HCC-CMS) 03/11/2024 16:08 EDT documented as of this encounter Visit Diagnoses Diagnosis Cerebrovascular accident (CVA), unspecified mechanism (HCC-CMS) documented in this encounter Care Teams Customer Service Security Officer Relationship Specialty Start Date End Date Rhonda Han FNP PCP - General 02/23/17 documented as of this encounter
--- OUTSIDE RECORDS SUMMARY | 2024-03-17 09:07 | XMS_ITS | Encounter Summary ---
Author Organization [facility] Address [address] [place] [address] Care Team Providers Care Thread Twister Name Role Phone Rhonda Han SEXUAL ABUSE COUNSELLOR Primary Care Provider [phone] Reason for Visit * Reason Comments Other [facility] Encounter Details Date Type Department Care Team (Late st Contact Info) Description 03/11/2024 16:00 EDT Nurse Only [facility] - [facility] Cardiology Clinic [address], [place] [address] Nurse, [facility] Cerebrovascular accident (CVA), unspecified mechanism ([facility]-CMS) (Primary Dx) Social History Tobacco Use Types Packs/Day Years Used Date Smoking Tobacco: Never Smokeless Tobacco: Current Chew Alcohol Use Standard Drinks/Week Comments Yes 5 (1 standard drink = 0.6 oz pur e alcohol) [facility] Utilities Answer Date Recorded In the past 12 months has [employer], gas, oil, or water [employer] threatened to shut off services in your [...] medical appointments or from getting medications? No 07/3 08/2023 In the past 12 months, has l [...] any time in the past 12 m [facility], were you homeless or living in a snf (including now)? No 03/02/2024 Interpersonal Safety Answer [...] No 03/01/2024 documented as of this encounter Progress Notes * Tavia Fisher, RN - 03/11/2024 1600 EDT Pt to office for placement of 30 day Carly MCOT heart monitor. Pt aox3 and w/o complaints. Reviewed patient information and instructions with patient who verbalizes understanding. Carly MCOT monitor applied to left chest after appropriate skin prep per guidelines from business unit controller. Pt demonstrated proper technique and verbalizes understanding of documenting events via use of the phone that isprovided. Reviewed charging of phone on nightly basis, charging MCOT monitor when notified that it requires charging (usually weekly), as well as changing of monitoring strips when they lose adhesiveness. Reviewed troubleshooting the device as well as how to contact the business unit controller help line with questions/concerns. Pt verbalizes understanding of removal and how to send it back to the business unit controller. documented in this encounter Plan of Treatment Upcoming Encounters Date Type Department Care Team (Late st Contact Info) Description 04/22/2024 17:00 EDT Appointment [facility] CT Scan [address] [place] [id number] documented as of this encounter Visit Diagnoses Diagnosis Cerebrovascular accident (CVA), unspecified mechanism ([facility])- Primary documented in this encounter Care Teams Thread Twister Relationship Specialty Start Date End Date Rhonda Han FNP PCP - General 02/23/17 documented as of this encounter
--- OUTSIDE RECORDS SUMMARY | 2024-03-17 09:07 | XMS_ITS | Referral Summary ---
Author Organization [facility] Address [address] [place] [address] Care Team Providers Care Traffic Line Painter Name Role Phone Rhonda Han LAUNDRY LABORER Primary Care Provider [phone] Encounters Date Type Department Care Team Description 03/11/2024 16:00 EDT Nurse Only [facility] [address] [place] [address] Nurse, [facility] Cerebrovascular accident (CVA), unspecified mechanism (HCC-CMS) (Primary Dx) 03/11/2024 16:00 EDT Ancillary Procedure [facility] [address] [place] [address] Cerebrovascular accident (CVA), unspecified mechanism (HCC-CMS) 03/04/2024 Telephone [facility] [address] [place] [address] Samaria Dorsey MD Cardiac Testing (CHANDLER Order) 03/01/2024 9:51 EDT - 03/04/2024 11:57 EDT Hospital Encounter [facility] Medical / Surgical Department [address] [place] [address] [id number] Fartun Ferreira MD Bolton, Kenyon C, MD Clouser, Ryan D, Rocael Geller DO Clark, Nicole P, PA-C Cerebrovascular accident (CVA), unspecified mechanism (HCC-CMS) (Primary Dx); Primary hypertension; Stage 3 chronic kidney disease, unspecified whether stage 3a or 3b CKD ([facility]); Stage 3a chronic kidney disease ([facility]) [N18.31]; Mass in region of sella turcica present on magnetic resonance imaging; Resistant hypertension; Stenosis of carotid artery, unspecified laterality Discharge Disposition: Home or Self Care 03/01/2024 Telemedicine [facility] Telemedicine - Main [address] [address] Nina Rivera MD Ischemic stroke ([facility]) (Primary Dx) from Last 3 Months Allergies No known active allergies Medications Medication [...] hypertension 03/02/2024 Stage 3 chronic kidney disease ([facility]) 024 Cerebrovascular accident (CVA) ([facility]) 024 Cerebrovascular accident (CV A), unspecified mechanism ([facility]) 03/01/2024 Social History Tobacco Use Types Packs/Day Years Used Date Smoking Tobacco: Never Smokeless Tobacco: Current Chew Tobacco Cessation:Ready to Q uit: Yes; Counseling Given: Not Answered Alcohol Use Standard Drinks/Week Comments Yes 5 (1 standard drink = 0.6 oz pur e alcohol) [facility] Utilities Answer Date Recorded In the past 12 months has th e [employer], gas, oil, or water [employer] threatened to shut off services in your [...] any time in the past 12 m [place], were you homeless or living in a alf (including now)? No 03/02/2024 Interpersonal Safety Answer Date Record ed How often does anyone, inclu mónica family, hit, punch or physically hurt you? 03/01/2024 How often does anyone, inclu mónica family, insult, scream, curse or threaten to hurt you? 03/01/2024 Sex and Gender Information Value Date Recorded Sex Assigned at Not on file Gender Identity Not on file Sexual Orientation Not on file Last Filed Vital Signs Vital Sign Reading [...] Body Mass Index 36.18 03/01/2024 1613 EDT Functional Status Functional Status Response Date of [...] (5 years old or older) No 03/01/2024 Plan of Treatment Upcoming Encounters Date Type Department Care Team (Late st Contact Info) Description 04/22/2024 17:00 EDT Appointment [facility] CT Scan [address] [place] [address] Procedures Procedure Name Priority Date/Time Associated Diagnosis [...] 8:01 EDT) 03/08/2024 8:01 EDT Scan 2 Explosive Ordnance Manager PROCEDURE/MINOR ALIYAH GICAL ORDERABLES * US RENAL [...] Color UA Yellow Colorless, Yellow 03/03/2024 20:44 [facility] Clarity UA Clear Clear 03/03/2024 20:44 [facility] Glucose UA Negative Negative mg/dL 03/03/2024 20:44 [facility] Bilirubin UA Negative Negative 03/03/2024 20:44 [facility] Ketones UA Negative Negative 03/03/2024 20:44 [facility] Specific [place] [address], Urine 1.010 1.001 - 1.030 03/03/2024 20:44 [facility] Blood UA Negative Negative 03/03/2024 20:44 [facility] pH, UA 6.5 <8.5 03/03/2024 20:44 [facility] Protein UA Negative Negative mg/dL 03/03/2024 20:44 [facility] Urobilinogen UA 0.2 0.2-1.0 mg/dL mg/dL 03/03/2024 20:44 [facility] Nitrite UA Negative Negative 03/03/2024 20:44 [facility] Leukocyte Esterase UA Negative Negative 03/03/2024 20:44 [facility] Urine URINE SPECIMEN OBTAINED BY CLEAN CATCH PROCEDURE / Unknown Urine Collect / Unknown 03/03/2024 20:37 EDT 03/03/2024 20:40 EDT Delphine Beltrán PA-C URINALYSIS ORDERABLE S [facility] [address] [place] [address] * ECG REPORT - SCANNED (03/03/2024 13:40 EDT) 03/03/2024 13:4 0 EDT Scan 2 Explosive Ordnance Manager PROCEDURE/MINOR ALIYAH GICAL ORDERABLES * XR WRIST RIGHT 2 VIEWS (03/03/2024 10:32 EDT) Anatomical Region Laterality Modality Upper Extremities Right Computed Radio graphy 03/03/2024 10:5 0 EDT Impressions 03/03/2024 10:50 EDT 1. ??No acute fracture identified. 2. ??Evidence of old wrist trauma, as detailed above. 3. ??Moderate wrist arthrosis. [id number] Narrative 03/03/2024 10:50 EDT XR WRIST RIGHT [...] calcified atherosclerotic disease noted. Resulting Agency Comment [id number] Procedure Note Lobo Siegel MD - 03/03/2024 [...] as detailed above. 3. Moderate wrist arthrosis. [id number] Delphine Beltrán PA-C IMG DIAGNOSTIC IMAGI NG ORDERABLES * HOLD LAVENDER TOP (03/03/2024 6:30 EDT) Hold Hold 03/03/2024 7:45 EDT [facility] Blood VENOUS BLOOD / Unknown Venipuncture / Unknown 03/03/2024 6:30 EDT 03/03/2024 6:44 EDT Branden Ha Clouser DO LAB INFO SERVICE AND SUPPORT & PHONE RESULT Performing Organization Address [facility] [place]/State/[facility] Co de Phone Number [facility] [address] [place] [address] * (ABNORMAL) BASIC METABOLIC PANEL (BMP) (03/03/2024 6:30 EDT) Sodium 136 136 - 145 mmol/L 03/03/2024 7:10 [facility] Potassium 4.6 3.5 - 5.0 mmol/L 03/03/2024 7:10 [facility] Chloride 101 96 - 110 mmol/L 03/03/2024 7:10 [facility] CO2 Total 26 22 - 32 mmol/L 03/03/2024 7:10 [facility] Anion Gap 9 5 - 14 mmol/L 03/03/2024 7:10 [facility] Glucose 98 70 - 99 mg/dl 03/03/2024 7:10 [facility] Calcium 9.1 8.5 - 10.5 mg/dL 03/03/2024 7:10 [facility] BUN 25 10 - 26 mg/dL 03/03/2024 7:10 EDT [facility] Creatinine 1.53(H) 0.66 - 1.25 mg/dL 03/03/2024 7:10 EDT [facility] eGFR 48(L) >60 mL/min/1.73 m2 03/03/2024 7:10 EDT [facility] Blood VENOUS BLOOD / Unknown Venipuncture / Unknown 03/03/2024 6:30 EDT 03/03/2024 6:42 EDT Branden Galaviz DO CHEMISTRY & BLOOD GA S ORDERABLES Performing Organization Address City/[facility]/ZIP Co de Phone Number [facility] [address] [place] [address] * ACTH, PLASMA (03/02/2024 6:45 EDT) Adrenocorticotropic Hormone, P 25 pg/mL 03/03/2024 17:14 EDT [facility] [employer] Comment: REFERENCE VALUE 7.2-63 (a.m. collection) Test Performed by: [facility] [address] [place] [id number] Security System Technician: Nhan Mistry Ph.D.; CLIA# [id number] Blood VENOUS BLOOD / Unknown Venipuncture / Unknown 03/02/2024 6:45 EDT 03/02/2024 6:54 EDT Vik De Anda MD CHEMISTRY & BLOOD GA S ORDERABLES Performing Organization Address City/[facility]/ZIP Co de Phone Number [facility] [address] [place] [phone] * PROLACTIN (03/02/2024 6:45 EDT) Prolactin 7.9 2.1 - 17.7 ng/mL 03/02/2024 13:55 EDT [facility] Blood VENOUS BLOOD / Unknown Venipuncture / Unknown 03/02/2024 6:45 EDT 03/02/2024 6:56 EDT Vik De Anda MD CHEMISTRY & BLOOD GA S ORDERABLES [facility] [address] [place] [address] * IGF-1, LC/MS, S (03/02/2024 6:45 EDT) [facility] IGF-1, LC/MS, S 70 32 - 200 ng/mL 03/09/2024 17:54 EDT [facility] [employer] Z-score -0.84 -2.0 - 2.0 SD 03/09/2024 17:54 EDT [facility] Comment: ADDITIONAL INFORMATION This test was developed and its performance characteristics determined by [facility] in a manner consistent with CLIA requirements. This test has not been cleared or approved by the U.S. Food and Drug Administration. Test Performed by: [facility] - [address] [address] Security System Technician: Nhan Mistry Ph.D.; CLIA# [id number] Blood VENOUS BLOOD / Unknown Venipuncture / Unknown 03/02/2024 6:45 EDT 03/02/2024 6:56 EDT Vik De Anda MD CHEMISTRY & BLOOD GA S ORDERABLES Performing Organization Address City/[facility]/ZIP Co de Phone Number [facility] [address] [place] [address] * (ABNORMAL) COMPLETE BLOOD COUNT (03/02/2024 6:45 EDT) [facility] WBC 8.33 4.00 - 10.40 K/cmm 03/02/2024 7:06 EDT [facility] RBC 4.32(L) 4.36 - 5.78 M/cmm 03/02/2024 7:06 [facility] Hemoglobin 13.6(L) 13.8 - 17.3 g/dL 03/02/2024 7:06 [facility] HCT 41.6 39.5 - 50.2 % 03/02/2024 7:06 [facility] MCV 96(H) 81 - 95 fL 03/02/2024 7:06 [facility] MCH 31.5 27.6 - 33.0 pg 03/02/2024 7:06 [facility] MCHC 32.7(L) 32.8 - 36.4 g/dL 03/02/2024 7:06 [facility] RDW-CV 13.2 <14.2 % 03/02/2024 7:06 [facility] RDW-SD 47.0(H) <46.0 fl 03/02/2024 7:06 [facility] PLT 220 141 - 377 K/cmm 03/02/2024 7:06 [facility] MPV 10.6 9.5 - 12.7 fL 03/02/2024 7:06 [facility] Blood VENOUS BLOOD / Unknown Venipuncture / Unknown 03/02/2024 6:45 EDT 03/02/2024 6:56 EDT Vik De Anda MD HEMATOLOGY & PF4 ORD ERABLES [facility] [address] [place] [address] * CORTISOL (03/02/2024 6:45 EDT) Cortisol 10 See Note ug/dL 03/02/2024 8:08 [facility] Comment: NOTE: Reference Ranges [...] MD CHEMISTRY & BLOOD GA S ORDERABLES [facility] [address] [place] [address] * (ABNORMAL) LIPID PROFILE (INCLUDES CHOLESTEROL, TRIGLYCERIDES, HDL, LDL) (03/02/2024 6:45 EDT) Cholesterol 205(H) <200 mg/dL 03/02/2024 7:34 [facility] Comment:Note that therapeuti c goals will differ between patients based on cardiac risk factors and current medical therapy. HDL 46 >=40 mg/dl 03/02/2024 7:34 [facility] Comment:Note that therapeuti c goals will differ between patients based on cardiac risk factors and current medical therapy. LDL, Calculated 136 <160 mg/dL 7:34 [facility] Comment:Note that therapeuti c goals will differ between patients based on cardiac risk factors and current medical therapy. Triglyceride 117 <=150 mg/dL 03/02/2024 7:34 [facility] Comment:Note that therapeuti c goals will differ between patients based on cardiac risk factors and current medical therapy. Chol/HDL Ratio 4.5 See Note 03/02/2024 7:34 [facility] Comment: NOTE: Desirable Ratio = <4.1 Patient At Risk Ratio = >5.0(Males) ?>6.0(Females) Non HDL Cholesterol 159 <160 mg/dL 03/02/2024 7:34 [facility] Comment:Note that therapeuti c goals will differ between patients based on cardiac risk factors and current medical therapy. Blood VENOUS BLOOD / Unknown Venipuncture / Unknown 03/02/2024 6:45 EDT 03/02/2024 6:55 EDT Vik De Anda MD CHEMISTRY & BLOOD GA S ORDERABLES [facility] [address] [place] [address] * (ABNORMAL) COMPREHENSIVE METABOLIC PANEL (CMP) (03/02/2024 6:45 EDT) Only the most recent of2 resultswithin the time period is included. Sodium 136 136 - 145 mmol/L 03/02/2024 7:34 [facility] Potassium 4.3 3.5 - 5.0 mmol/L 03/02/2024 7:34 [facility] Chloride 101 96 - 110 mmol/L 03/02/2024 7:34 [facility] CO2 Total 26 22 - 32 mmol/L 03/02/2024 7:34 [facility] Glucose 114(H) 70 - 99 mg/dl 03/02/2024 7:34 [facility] BUN 21 10 - 26 mg/dL 03/02/2024 7:34 [facility] Creatinine 1.49(H) 0.66 - 1.25 mg/dL 03/02/2024 7:34 [facility] eGFR 50(L) >60 mL/min/1.7 3m2 03/02/2024 7:34 [facility] Total Protein 6.8 6.3 - 8.2 g/dL 03/02/2024 7:34 [facility] Albumin 3.9 3.4 - 4.9 g/dL 03/02/2024 7:34 [facility] Alkaline Phosphatase 66 38 - 126 U/L 03/02/2024 7:34 [facility] AST 17 15 - 46 U/L 03/02/2024 7:34 [facility] ALT 13 <50 U/L 03/02/2024 7:34 [facility] Bilirubin, Total 0.6 <1.4 mg/dL 03/02/20 7:34 EDT [facility] Calcium 9.0 8.5 - 10.5 mg/dL 03/02/2024 7:34 EDT [facility] Albumin/Globulin Ratio 1.3 1.0 - 2.5 03/02/2024 7:34 EDT [facility] Anion Gap 9 5 - 14 mmol/L 03/02/2024 7:34 EDT [facility] Blood VENOUS BLOOD / Unknown Venipuncture / Unknown 03/02/2024 6:45 EDT 03/02/2024 6:55 EDT Vik De Anda MD CHEMISTRY & BLOOD GA S ORDERABLES [facility] [address] [place] [address] * ECG REPORT - SCANNED (03/01/2024 16:45 EDT) 03/01/2024 16:4 5 EDT Scan 2 Explosive Ordnance Manager PROCEDURE/MINOR ALIYAH GICAL ORDERABLES * MR HEAD [...] protocol CT within 1 month is recommended. [id number] Narrative 03/01/2024 15:35 EDT INDICATION: Possible lacunar [...] Likely benign. Correlate clinically. Resulting Agency Comment [id number] Procedure Note William Barrios MD - 03/02/2024 [...] pituitary protocol CT within 1 monthis recommended. [id number] Fartun Ferreira MD IMG MRI ORDERABL ES * [...] CARE LVOT mean velocity, S 0.7 m/s [facility] POINT OF CARE LV E/e', average 19 [facility] POINT OF CARE Mitral E/A ratio, peak 1.60 [facility] POINT OF CARE Heart Rate 73.0 bpm [facility] POI NT OF CARE IVS thickness, ED, PLAX 1.1 cm [facility] POINT OF CARE LV PW thickness, ED, PLAX 1.3 0.6 - 1.1 cm [facility] Anatomical Region Laterality Modality [...] is limited due to patient body habitus. [id number] Narrative 03/01/2024 12:31 EDT XR CHEST PORTABLE 1 VIEW ?? Signs and Symptoms/Comments: ??stroke; Comparisons: None. FINDINGS: Chest: A single upright AP view was performed. Lungs: Apparent bilateral hazy airspace opacities, however this could be incidental to patient body habitus. Pleura: No pneumothorax or pleural effusion identified. Mediastinum: Cardiomegaly. Bones: Unremarkable. Resulting Agency Comment [id number] Procedure Note Lobo Siegel MD - 03/01/2024 XR CHEST PORTABLE [...] lungs is limiteddue to patient body habitus. [id number] Fartun Ferreira MD IMG DIAGNOSTIC I MAGING ORDERABLES * (ABNORMAL) POCT GLUCOSE, INTERFACED (03/01/2024 11:25 EDT) Glucose, POC 109(H) 70 - 100 mg/dL 03/01/2024 11:26 EDT [facility] HN LAB POC COMMENT (GLUCOSE) Test Performed in ED 03/01/2024 11:26 EDT [facility] Blood CAPILLARY BLOOD / Unknown 03/01/2024 11:25 EDT 03/01/2024 11:26 EDT Fartun Ferreira MD POINT OF CARE TE ST ORDERABLES [facility] [address] [place] [address] * EKG 12-LEAD (03/01/2024 10:10 EDT) 03/01/2024 10:1 0 EDT Narrative [facility] - 03/01/2024 16:38 EDT ? [facility] [place] Test Date: ?2024-03-01 Pat Name: ? KIP SMITH ?Department: ? Room: ? Gender: ? Male ? [employer] Teacher: ?? HERON : ?1955 ? Requested By: RADHA FARTUN WHITFIELD Order Number: [id number] ? [place] MD: ?? SAMARIA DORSEY MD ? Measurements Intervals ?[place] ? Rate: ? 94 ? P: ?63 NM: ? 224 ?QRS: ?47 QRSD: ? 96 [...] Procedure Note Samaria Dorsey MD - 03/01/2024 [facility] [place] Date: 2024-03-01 Pat Name: KIP SMITH Department: Room: Gender: Male [employer] Teacher: HERON : 1955 Requested By: RADHA KELLER Order Number: [id number] [place] MD: SAMARIA DORSEY MD Measurements Intervals [place] Rate: 94 P: 63 NM: 224 QRS: 47 QRSD: 96 T: 61 QT: 368 QTc: 460 Interpretive Statements Sinus rhythm with 1st degree AV block with premature atrial complexes Minimal voltage criteria for LVH, may be normal variant No previous ECG available for comparison I reviewed the tracing and have either agreed or edited the findings inthis report. Electronically Signed On 03-01-2024 16:38:27 EDT by SAMARIA PICKETT. Fartun Ferreira MD CARDIAC ECG [facility] * (ABNORMAL) THYROID CASCADE (03/01/2024 10:08 EDT) TSH 4.69(H) 0.47 - 4.68 mIU/L 03/01/2024 20:57 EDT [facility] Blood VENOUS BLOOD / Unknown Venipuncture / Unknown 03/01/2024 10:08 EDT 03/01/2024 10:52 EDT Narrative [facility] - 03/01/2024 20:57 EDT NOTE: The results of this assay can be falsely lowered due to the consumption of Biotin. Vik De Anda MD CHEMISTRY & BLOOD GA S ORDERABLES Performing Organization Address City/[facility]/ZIP Co de Phone Number [facility] [address] [place] [address] * TROPONIN I (03/01/2024 10:08 EDT) [facility] Troponin I (ng/mL) <0.034 <0.034 ng/mL 03/01/2024 11:23 EDT [facility] Blood VENOUS BLOOD / Unknown Venipuncture / Unknown 03/01/2024 10:08 EDT 03/01/2024 10:52 EDT Narrative [facility] - 03/01/2024 11:23 EDT The results of this assay can be falsely lowered due to the consumption of Biotin. Fartun Ferreira MD CHEMISTRY & BLOO D GAS ORDERABLES Performing Organization Address City/[facility]/ZIP Co de Phone Number [facility] [address] [place] [phone] * PTT (03/01/2024 10:08 EDT) [facility] PTT 30 26 - 37 secs 03/01/2024 11:03 EDT [facility] Blood VENOUS BLOOD / Unknown Venipuncture / Unknown 03/01/2024 10:08 EDT 03/01/2024 10:52 EDT Fartun Ferreira MD HEMATOLOGY & PF4 ORDERABLES Performing Organization Address City/[facility]/ZIP Co de Phone Number [facility] [address] [place] [phone] * PROTIME (03/01/2024 10:08 EDT) [facility] I.N.R. 1.1 0.9 - 1.1 Ratio 03/01/2024 11:03 EDT [facility] Pro Time 12.0 9.7 - 12.8 secs 03/01/2024 11:03 EDT [facility] Blood VENOUS BLOOD / Unknown Venipuncture / Unknown 03/01/2024 10:08 EDT 03/01/2024 10:52 EDT [facility] - 03/01/2024 11:03 EDT Moderate Intensity Coumadin INR = 2.0-3.0 Adjustments in anticoagulant therapy dose should be based on the INR and NOT on the Protime. Fartun Ferreira MD HEMATOLOGY & PF4 ORDERABLES [facility] [address] [place] [address] * (ABNORMAL) COMPLETE BLOOD COUNT AND DIFFERENTIAL (03/01/2024 10:08 EDT) WBC 9.86 4.00 - 10.40 K/cmm 03/01/2024 10:55 [facility] RBC 4.86 4.36 - 5.78 M/cmm 03/01/2024 10:55 [facility] Hemoglobin 15.8 13.8 - 17.3 g/dL 03/01/2024 10:55 [facility] HCT 47.5 39.5 - 50.2 % 03/01/2024 10:55 [facility] MCV 98(H) 81 - 95 fL 03/01/2024 10:55 [facility] MCH 32.5 27.6 - 33.0 pg 03/01/2024 10:55 [facility] MCHC 33.3 32.8 - 36.4 g/dL 03/01/2024 10:55 [facility] RDW-CV 13.3 <14.2 % 03/01/2024 10:55 [facility] RDW-SD 47.6(H) <46.0 fl 03/01/2024 10:55 [facility] PLT 241 141 - 377 K/cmm 03/01/2024 10:55 [facility] MPV 10.9 9.5 - 12.7 fL 03/01/2024 10:55 [facility] % Neutrophils 39.6 % 03/01/2024 10:55 [facility] % Lymphocytes 48.7 % 03/01/2024 10:55 [facility] % Monocytes 8.2 % 03/01/2024 10:55 [facility] % Eosinophils 2.5 % 03/01/2024 10:55 [facility] % Basophils 0.6 % 03/01/2024 10:55 [facility] % Immature Grans 0.4 <0.9 % 03/01/20 10:55 [facility] Absolute Neutrophils 3.90 2.20 - 8.85 K/cmm 03/01/2024 10:55 [facility] Absolute Lymphocytes 4.80(H) 1.09 - 3.30 K/cmm 03/01/2024 10:55 [facility] Absolute Monocytes 0.81(H) 0.10 - 0.80 K/cmm 03/01/2024 10:55 [facility] Absolute Eosinophils 0.25 0.03 - 0.61 K/cmm 03/01/2024 10:55 [facility] ABS Basophils 0.06 0.01 - 0.11 K/cmm 03/01/2024 10:55 [facility] Absolute Immature Grans 0.04 0.00 - 0.06 K/cmm 03/01/2024 10:55 [facility] Type of Differential: Auto 03/01/2024 10:55 [facility] Blood VENOUS BLOOD / Unknown Venipuncture / Unknown 03/01/2024 10:08 EDT 03/01/2024 10:52 EDT Fartun Ferreira MD PACKAGES & DNA P ROBE ORDERABLES [facility] [address] [place] [address] * T4 FREE (03/01/2024 10:08 EDT) Pathologist [facility] T4, Free 1.1 0.8 - 2.2 ng/dL 03/01/2024 22:10 EDT [facility] Blood VENOUS BLOOD / Unknown Venipuncture / Unknown 03/01/2024 10:08 EDT 03/01/2024 10:52 EDT Vik De Anda MD CHEMISTRY & BLOOD GA S ORDERABLES Performing Organization Address [facility] [place]/[facility]/ZIP Co de Phone Number [facility] [address] [place], [place] [phone] * MAGNESIUM (03/01/2024 10:08 EDT) [facility] Magnesium 1.9 1.7 - 2.8 mg/dL 03/01/2024 11:29 EDT [facility] Blood VENOUS BLOOD / Unknown Venipuncture / Unknown 03/01/2024 10:08 EDT 03/01/2024 10:52 EDT Fartun Ferreira MD CHEMISTRY & BLOO D GAS ORDERABLES Performing Organization Address [facility] [place]/[facility] [facility] [place] Phone Number [facility] [address] [place] [address] * (ABNORMAL) HEMOGLOBIN A1C (03/01/2024 10:08 EDT) [facility] Hemoglobin A1c 5.8(H) <5.7 % 03/02/2024 13:36 T [facility] Comment: Glycemic Status References: Normal: ??<5.7% Pre-Diabetes: ??5.7% - 6.4% Diagnostic of Diabetes: ??> or = 6.5% (if confirmed) Est Avg Glucose 120 mg/dL 13:36 [facility] Comment:The eAG represents t he A1c result expressed as average glucose in mg/dL. Blood VENOUS BLOOD / Unknown Venipuncture / Unknown 03/01/2024 10:08 EDT 03/01/2024 10:52 EDT Vik De Anda MD CHEMISTRY & BLOOD GA S ORDERABLES [facility] [address] [place] [address] * ETHANOL, BLOOD (03/01/2024 10:08 EDT) [facility] Ethanol, Blood <10 <10 mg/dL mg/dL 03/01/2024 11:29 EDT [facility] Comment:Healthy, non-drinkin g individuals will have an ethanol concentration of <10 mg/dL. Blood VENOUS BLOOD / Unknown Venipuncture / Unknown 03/01/2024 10:08 EDT 03/01/2024 10:52 EDT [facility] - 03/01/2024 11:29 EDT [place] legal blood alcohol limit = 80 mg/dl (0.08%) Fartun Ferreira MD CHEMISTRY & BLOO D GAS ORDERABLES Performing Organization Address City/[facility]/ZIP Co de Phone Number [facility] [address] [place] [address] * CT ANGIO HEAD NECK (03/01/2024 10:06 EDT) Anatomical Region Laterality Modality Head and Neck Computed Tomogra phy 03/01/2024 10:3 2 EDT Addenda Addendum by William Barrios MD on 03/01/2024 14:54 EDT Addendum: ADDENDUM: CTA was performed during the same session as noncontrast CT head due to neurologic deficit and concern for large vessel occlusion/ischemic stroke. [id number] Impressions 03/01/2024 10:[address] ANGIOGRAM [...] to Dr. Ferreira on 03/01/2024 10:31 AM. [id number] Narrative 03/01/2024 10:32 EDT INDICATION: stroke symptoms; [...] significant stenosis. No aneurysm. Posterior Circulation: Right EMISSIONS INSPECTOR: Unremarkable. No occlusion or significant stenosis. No aneurysm. 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 Left EMISSIONS INSPECTOR: Unremarkable. No occlusion or significant stenosis. No aneurysm. Left vertebral artery: Patent dominant left vertebral artery. Basilar artery: Unremarkable. No occlusion or significant stenosis. No aneurysm. Resulting Agency Comment [id number] Procedure Note William Barrios MD - 03/01/2024 [...] or significant stenosis. Noaneurysm. Posterior Circulation: Right EMISSIONS INSPECTOR: Unremarkable. No occlusion or significant stenosis. Noaneurysm. Right vertebral artery: Variant PICA termination of the right vertebralartery. Left EMISSIONS INSPECTOR: Unremarkable. No occlusion or significant stenosis. Noaneurysm. [...] communicated these findings to Dr. Ferreira on 0:31 AM. [id number] Fartun Ferreira MD IMG CT ORDERABLE S * CT HEAD WO CONTRAST (03/01/2024 10:02 EDT) Anatomical Region Laterality Modality Head Computed Tomogra phy 03/01/2024 10:1 5 EDT Addenda Addendum by William Barrios MD on 03/01/2024 10:32 EDT Addendum: I personally communicated these findings to Dr. Ferreira on 03/01/2024 10:31 AM. [id number] Impressions 03/01/2024 10:15 EDT 1. Vague hypodensity within the left basal ganglia suspicious for lacunar infarct, of uncertain age. 2. Indeterminate subcutaneous 15 mm soft tissue density nodule containing calcifications within the posterolateral right scalp. Correlate clinically. [id number] Narrative 03/01/2024 10:15 EDT INDICATION: Stroke symptoms; [...] 202), indeterminate. Correlate clinically. Resulting Agency Comment [id number] Procedure Note William Barrios MD - 03/01/2024 [...] containingcalcifications within the posterolateral right scalp. Correlateclinically. [id number] Fartun Ferreira MD IMG CT ORDERABLE S * Critical Care (03/01/2024 9:49 EDT) Narrative [facility] EKG - 03/01/2024 9:49 EDT Fartun Ferreira MD ? 03/01/2024 18:00 Critical Care Performed by: Fartun Ferreira MD Authorized by: Fartun Ferreira MD ?? Critical care provider statement: ??Critical care time (minutes): 60. ??Critical care was necessary to treat or prevent imminent or life-threatening deterioration of the following conditions: ??BLOCKER HEATED METAL FORMS failure or compromise ??Critical care was time [...] are present, EMS, full telestroke consultation with [facility] stroke neurology was also obtained and treatment plan was discussed with them and then carried out Fartun Ferreira MD PROCEDURE/MINOR SURGICAL ORDERABLES [facility] EKG from Last 3 Months Advance Directives For more information, please contact: [phone] * Full Code (Latest Code Status on [...] Made the Decision? Default/Not Discussed Care Teams Traffic Line Painter Relationship Specialty Start Date End Date Rhonda Han FNP PCP - General 02/23/17
--- OUTSIDE RECORDS SUMMARY | 2024-03-17 09:07 | XMS_ITS | Encounter Summary ---
Author Organization [facility] Address [address] [place] [address] Care Team Providers Care Lighter Captain Name Role Phone Guille Nathan DOUGLAS Primary Care Provider [phone] Reason for Referral * Consult (Routine/Next Available) - Authorization Not Required Specialty Diagnoses / Procedures Referred By Contac t Referred To Contact Diagnoses Cerebrovascular accident (CVA), unspecified mechanism (HCC-CMS) Stage 3a chronic kidney disease (HCC-CMS) Mass in region of sella turcica present on magnetic resonance imaging Delphine Beltrán PA-C [address] [place] [address] Nathan Tobin, DIRECTOR [employer] [address] [place] [address] Referral ID Status Reason Start Date Expiration Date Visits Requested Visits Authorized [id number] Authorization Not Required Specialty Services Required 03/04/2024 1 1 Question Answer Reason for Request: hospital DC follow up * Radiology Services (Routine/Next Available) - Authorization Not Required Specialty Diagnoses / Procedures Referred By Contac t Referred To Contact Diagnoses Mass in region of sella turcica present on magnetic resonance imaging Procedures CT HEAD WO CONTRAST Delphine Beltrán PA-C [address] [place] [address] [facility] Referral ID Status Reason Start Date Expiration Date Visits Requested Visits Authorized [id number] Authorization Not Required 03/04/2024 1 1 * Cardiology (Routine/Next Available) - Authorization Not Required Specialty Diagnoses / Procedures Referred By Contac t Referred To Contact Diagnoses Cerebrovascular accident (CVA), unspecified mechanism (HCC-CMS) Procedures 30 DAY FIBER ANALYST Delphine Beltrán PA-C [address] [place] [phone] [facility] Referral ID Status Reason Start Date Expiration Date Visits Requested Visits Authorized [id number] Authorization Not Required 03/04/2024 1 1 * Consult (Routine/Next Available) - Closed Specialty Diagnoses / Procedures Referred By Contac t Referred To Contact Vascular Surgery Diagnoses Cerebrovascular accident (CVA), unspecified mechanism (HCC-CMS) Stenosis of carotid artery, unspecified laterality Delphine Beltrán PA-C [address] [place] [phone] [facility] [address] [place] [id number] Referral ID Status Reason Start Date Expiration Date V isits Requested Visits Authorized [id number] Closed Specialty Services Required 03/04/2024 1 1 Question Answer Reason for Request: Carotid stenosis, post CVA * Consult (Routine/Next Available) - Authorization Not Required Specialty Diagnoses / Procedures Referred By Contac t Referred To Contact Cardiology Diagnoses Resistant hypertension Delphine Beltrán PA-C [address] [place] [phone] [facility] [address] [place] [id number] Referral ID Status Reason Start Date Expiration Date Visits Requested Visits Authorized [id number] Authorization Not Required Specialty Services Required 03/04/2024 1 1 Question Answer Reason for Request: resistant HTN * Referral (Routine/Next Available) - Denied Specialty Diagnoses / Procedures Referred By Contac t Referred To Contact Diagnoses Cerebrovascular accident (CVA), unspecified mechanism (HCC-CMS) Mass in region of sella turcica present on magnetic resonance imaging Delphine Beltrán PA-C [address] [place] [phone] [facility] [address] [place] [id number] Referral ID Status Reason Start Date Expiration Date V isits Requested Visits Authorized [id number] Denied Specialty Services Required 03/04/2024 1 0 Question Answer Referral Question: Stroke follow up, selle turcica mass noted Even if a specific provider is requested above, please schedule this patient with the next available provider: Yes Context of Referral Hospital Discharge Follow Up Follow Up Location: Patient to follow up with same org as discharge Please review/acknowledge: I have/will forward all pertinent neuroimaging to the applicable digital library Please review/acknowledge: I have/will forward all pertinent prior neurologic evaluation reports to the applicable location Reason for Visit * Reason Comments Cerebrovascular Accident Pt arrived via EMS after family noticed right arm weakness and slurred speech. Last known well around 0805, BS 93. Pt HTN with new onset a-fib en route, 250ml NS given. No Hx of cardiac conditions. No c/o of headache, N/V/D, SOB, or chest pain. * Auth/Cert (Routine) Specialty Diagnoses / Procedures Referred By Contac t Referred To Contact Diagnoses Acute ischemic stroke (HCC-CMS) Cerebrovascular accident (CVA), unspecified mechanism (HCC-CMS) Referral ID Status Reason Start Date Expiration Date Visits Re quested Visits Authorized [id number] 1 1 Encounter Details Date Type Department Care Team (Late st Contact Info) Description 03/01/2024 9:51 EDT - 03/04/2024 11:57 EDT Hospital Encounter [facility] Medical / Surgical Department [address] [facility] [place] [address] Benny Ferreira MD [address] [place] [phone] Vik De Anda MD [address] [place] [phone] Branden Galaviz, DO [address] [facility], [facility] [address] [place] [address] Rocael Tang, [address] [place] [phone] Delphine Beltrán PA-C [address] [place] [phone] Cerebrovascular accident (CVA), unspecified mechanism (HCC-CMS) (Primary Dx); Primary hypertension; Stage 3 chronic kidney disease, unspecified whether stage 3a or 3b CKD (HCC-CMS); Stage 3a chronic kidney disease (HCC-CMS) [N18.31]; Mass in region of sella turcica present on magnetic resonance imaging; Resistant hypertension; Stenosis of carotid artery, unspecified laterality Discharge Disposition: Home or Self Care Social History Tobacco Use Types Packs/Day Years Used Date Smoking Tobacco: Never Smokeless Tobacco: Current Chew Tobacco Cessation:Ready to Q uit: Yes; Counseling Given: Not Answered Alcohol Use Standard Drinks/Week Comments Yes 5 (1 standard drink = 0.6 oz pur e alcohol) [facility] Utilities Answer Date Recorded In the past 12 months has e electric, gas, oil, or water [employer] threatened to shut off services in your [...] any time in the past 12 m [facility], were you homeless or living in a long term (including now)? No 03/02/2024 Interpersonal Safety Answer [...] Blood Pressure 160/83 03/04/2024 1140 EDT Pulse - - Temperature 36.6 ??C (97.9 ??F) 03/04/2024 1140 EDT Respiratory Rate 18 03/04/2024 1140 EDT Oxygen Saturation 95% 03/04/2024 1140 EDT Inhaled Oxygen Concentration - - Weight 121 kg (266 lb 12.8 oz) 03/04/2024 0351 E DT Height 182.9 cm (6') 03/01/2024 1613 EDT Body Mass Index 36.18 03/01/2024 1613 EDT documented in this encounter Functional Status Functional Status Response [...] No 03/01/2024 documented as of this encounter Discharge Summaries * Delphine Beltrán PA-C - 03/04/2024 0759 EDT HOSPITAL MEDICINE DISCHARGE SUMMARY Primary Care Provider: NATHAN TOBIN Attending Physician: Delphine Beltrán PA-C Admit Date: 03/01/2024 Discharge Date: 03/04/2024 Disposition (location): home Condition at Discharge: stable Reason for Admission (chief complaint): Chief Complaint Patient presents with Cerebrovascular Accident Pt arrived via EMS after family noticed right arm weakness and slurred speech. Last known well around 0805, BS 93. Pt HTN with new onset a-fib en route, 250ml NS given. No Hx of cardiac conditions. No c/o of headache, N/V/D, SOB, or chest pain. Principal/Final Diagnosis: Cerebrovascular accident (CVA), unspecified mechanism ([facility]) Additional Problems Managed in the Hospital: Active Hospital Problems Diagnosis Date Noted *Cerebrovascular accident (CVA), unspecified mechanism ([facility]) 03/01/2024 Primary hypertension 03/02/2024 Stage 3 chronic kidney disease ([facility]) 03/02/2024 Cerebrovascular accident (CVA) ([facility]) 03/01/2024 Resolved Hospital Problems No resolved problems to display. Transition of care: Psychiatric Transition of Care report automatically routed to PCP office on discharge. HPI: From Dr. De Anda's history and physical dated 03/01/2024, Kip Smith is a 69 y.o. male with limited prior medical care, poorly controlled hypertension, CAD, chewing tobacco use, who presented to the [facility] [place] with new onset right upper extremity weakness and dysarthria. Mr. Wyman follows at [place] primary care office. He is not currently on any medications and does not regularly see his doctor. Has been many years since he has seen a doctor. Previously saw Dr. Rosario of cardiology for CAD. He has had poor tolerance of blood pressure medications in the past (lisinopril, ?hydrochlorothiazide), and thus is not on antiantihypertensives at this time. His blood pressure can be regularly in the 200s SBP per his significant other. This morning he felt in his normal state of health when he got up at 6 AM. [place] generally well until he began to notice right upper extremity weakness and difficulty speaking clearly while on the phone with his daughter at 8:05 AM. EMS was called, though he initially had resolution of his symptoms. Then while in transport he began to have dysmetria in the right hand and again some slurring of words. He denies active chest pain, shortness of breath, nausea, vomiting, headache. He has periodic lower extremity swelling that seems to be worse at the end of the day while standing. He also has 2 small ulcerations that appear to be superficially ulcerated warts on his toes bilaterally. Upon arrival to the ED, his NIHSS was 1 for dysmetria in the right hand. He had mild right upper extremity drift as well. Vital signs were notable for hypertension at 241 systolic, otherwise stable. Chemistry panel with creatinine 1.42, unknown baseline. Glucose 100. Troponin x 1 negative, ethanol level negative, LFTs normal. CBC fairly unremarkable, INR 1.1, UA negative. He underwent CT head andangiogram which showed small lacunar infarct on the left of uncertain chronicity. He additionally had narrowing of the right and left cavernous internal carotid arteries with moderate stenosis on theright and moderate to severe stenosis on the left. His case was discussed with [facility] telestroke neurology who evaluated him and found NIHSS equals 1. Recommended against tPA, as well as targeted blood pressure control for initial permissive hypertensive range of 180-220 SBP. He was started on a nicardipine drip. MRI was ordered. He elects full code status though has not completed an advance directive. Would not want prolonged life support. Was accompanied by multiple friends/family in the room including his significant other. 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 EtOH includes 1-2 drinks per evening. Hospital Course: Kip Smith is a 69 y.o. male who presented to the ED 03/01 with acute onset of dysarthria andweakness in the right hand initially with an NIH stroke score scale of 1. He was quickly evaluated by the telestroke neurologist and felt not to be a candidate for tPA. He was admitted to the ICU forclose neurological monitoring and supportive care and underwent an MRI which did reveal evidence ofa small cortical acute infarct in the frontal lobe as well as a newly noted 14 mm mass in the sellaturcica. Briefly required nicardipine drip while in the ICU for severe hypertension. Transferred out of ICU to [facility] for ongoing care. Had ongoing severe, resistant hypertension, now resolved. Hospital course as follows: Acute ischemic stroke Suspect in the setting of longstanding poorly controlled HTN MRI revealed small cortical acute infarct in the frontal lobe as well as newly noted 14 mm mass in the sella turcica Patient is now 48 hours out from onset, pursuing more aggressive management of hypertension Continue daily low-dose aspirin Continue Lipitor 40 mg nightly, started this admit, LDL 136 Cleared by PT/OT/STRUCTURAL STEEL PAINTER NIH has been 0 for > 48 hours, we will hold further stroke neuro checks unless patient has an acute change. NIH 0 on day of discharge TTE w/o evidence of Left to right shunting No adverse events noted on telemetry monitoring Stroke neuro follow up on DC Resistant HTN, hypertensive urgency Patient reports longstanding hypertension as an outpatient, typically BP is greater than 190 systolically for him S/p nicardipine gtt in ICU, no signs of end organ dysfunction at this time Irbesartan increased to 150 mg daily Added nifedipine 30 mg daily, Coreg 6.25 mg twice daily, and clonidine 0.1 mg 2 times daily. US Renal Artery duplex without evidence of renal artery stenosis. Patient instructed to monitor his blood pressure closely on discharge, he was given parameters for which to hold medications and for which to reach out to his PCP for further guidance. Blood pressure is better controlled with a.m. blood pressure of 160/88 Right wrist pain Suspect strain XR negative for acute fx Tylenol and diclofenac gel PRN Moderate to severe carotid stenosis Vascular surgery referral at discharge Aspirin/statin as above Elevated creatinine: Unclear baseline, suspect CKD3 given creatinine 1.4-1.5. Treatment of hypertension as above Today patient is without complaints. He denies any headache or vision changes. No chest pain or shortness of breath. No slurred speech or expressive aphasia. No limb weakness, numbness, or tingling. Patient referred to stroke neuro, vascular surgery, cardiology, and PCP on discharge. Patient voicedunderstanding of discharge instructions. He is stable and discharged home at this time. Declined the need for home health services. 03/01/2024 10:28 03/01/2024 10:39 03/01/2024 11:25 03/04/2024 7:43 NIHSS Criteria Test Interval Discharge Exam Date 03/04/2024 Exam Time 07:48 LOC 0 0 LOC Questions 0 0 LOC Commands 0 0 Best Gaze 0 0 Visual 0 0 Facial Palsy 0 0 Left Arm, Motor 0 0 Right Arm, Motor 0 0 Left Leg, Motor 0 0 Right Leg, Motor 0 0 Limb Ataxia 1 0 Sensory 0 0 Best Language 0 0 Dysarthria 0 0 Extinction/Inatten. 0 0 Total Score 1 0 1 0 Additional Stroke Discharge Documentation Reason patient was not referred to Rehab Services during admission: See Comments Relevant Imaging/Procedures Performed: XR WRIST RIGHT 2 VIEWS Result Date: 03/03/2024 XR WRIST RIGHT 2 VIEWS Signs [...] swelling. Small vessel calcified atherosclerotic disease noted. 1. No acute fracture identified. 2. Evidence of old wrist trauma, as detailed above. 3. Moderate wrist arthrosis. [id number] TRANSTHORACIC ECHO (TTE) COMPLETE Result Date: 03/01/2024 Left Ventricle: Left ventricular systolic function was normal with an ejection fraction of 60-65%. Findings consistent with left ventricular diastolic dysfunction. Doppler parameters are consistent with high ventricular filling pressure. Left Atrium: No right to left shunting observed with agitatedsaline contrast injection at rest and with Valsalva. Right Ventricle: The right ventricular cavity was normal in size. Right ventricular systolic function was normal. MR HEAD WO CONTRAST Result Date: 03/01/2024 INDICATION: Possible lacunar infarct on CT; Possible [...] mass or mass effect. Expansion of the sellaturcica with fluid signal mass measuring 13 x [...] on previous CT. Likely benign. Correlate clinically. 1. Small focus of restricted diffusion within left frontal convexity cortex consistent with small cortical infarct. 2. Well-defined low signal 1.5 cm nodule within the right scalp, likely benign. Correlate clinically. 3. Expansion of the sella turcica containing a 13 x 8 x 14 mm cystic mass. Further evaluation with nonemergent pituitary protocol CT within 1 month is recommended. [id number] CT ANGIO HEAD NECK Result Date: 03/01/2024 INDICATION: stroke symptoms; Neuro deficit, acute, stroke suspected; stroke symptoms;. COMPARISON: None. TECHNIQUE: Angiogram of the head and neck was performed with nonionic IV contrast. Precontrastand postcontrast enhanced scans of the brain were obtained. Postcontrast enhanced scans of the neckwere obtained. 100 mL of Omnipaque 350 was [...] significant stenosis. No aneurysm. Posterior Circulation: Right FOOD COUNTER WORKER: Unremarkable. No occlusion or significant stenosis. No aneurysm. 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 Left FOOD COUNTER WORKER: Unremarkable. No occlusion or significant stenosis. No aneurysm. Left vertebral artery: Patent dominant left vertebral artery. Basilar artery: Unremarkable. No occlusion or significant stenosis. No aneurysm. HEAD CT ANGIOGRAM IMPRESSION: 1. Irregular narrowing of the right and left cavernous internal carotid arteries with moderate stenosis on the right and moderate/severe stenosis on the left. 2. Mild irregular narrowing of the right M1 segment. 3. Patent dominant left vertebral artery and variant PICAtermination of the right vertebral artery. CT ANGIOGRAM [...] to Dr. Ferreira on 03/01/2024 10:31 AM. [id number] XR CHEST PORTABLE 1 VIEW Result Date: 03/01/2024 XR CHEST PORTABLE 1 VIEW Signs and Symptoms/Comments: stroke; Comparisons: None. FINDINGS: Chest: Asingle upright AP view was performed. Lungs: Apparent bilateral hazy airspace opacities, however this could be incidental to patient body habitus. Pleura: No pneumothorax or pleural effusion identified. Mediastinum: Cardiomegaly. Bones: Unremarkable. Cardiomegaly and possible hazy airspace opacities, raising the possibility of mild pulmonary edema.Please note, assessment of the lungs is limited due to patient body habitus. CT HEAD WO CONTRAST Result Date: 03/01/2024 INDICATION: Stroke symptoms; Neuro deficit, acute, [...] a lacunar infarct of uncertain age. No intracranialhemorrhage or mass effect. No abnormal intra-axial or extra-axial fluid collections. Ventricles: Unremarkable. No hydrocephalus. Paranasal Sinuses and Mastoids: Mucosal thickening of the paranasal sinuses and small mucous retention cyst within the right maxillary sinus. Clear mastoids. Orbits: The o cular globes and retro-orbital fat are normal as visualized.. Bones: Unremarkable. No fracture or suspicious bone lesion. Soft tissues: 15 mm smooth soft tissue density nodule containing calcifications within the subcutaneous tissues of the posterolateral right scalp (image 279, series 202), indeter minate. Correlate clinically. 1. Vague hypodensity within the left basal ganglia suspicious for lacunar infarct, of uncertain age. 2. Indeterminate subcutaneous 15 mm soft tissue density nodule containing calcifications within the posterolateral right scalp. Correlate clinically. [id number] Medication List START taking these medications aspirin chewable 81 mg tablet Take 1 Tablet by mouth daily for 90 days. atorvastatin 40 mg tablet Commonly known as: LIPITOR Take 1 Tablet by mouth at bedtime for 90 days. carvediloL 6.25 mg tablet Commonly known as: COREG Take 1 Tablet by mouth 2 times daily with breakfast and dinner for 90 days. cloNIDine HCL 0.1 mg tablet Commonly known as: CATAPRES Take 1 Tablet by mouth 2 times daily for 30 days. diclofenac sodium gel Apply 2 g topically 4 times daily for 30 days. As needed for wrist pain irbesartan 150 mg tablet Commonly known as: AVAPRO Take 1 Tablet by mouth daily for 90 days. NIFEdipine XL 30 mg tablet Commonly known as: PROCARDIA-XL Take 1 Tablet by mouth daily for 90 days. Where to Get Your Medications These medications were sent to [facility]/pharmacy #[id number] - [place], [place] - [address], [place] [address] aspirin chewable 81 mg tablet atorvastatin 40 mg tablet carvediloL 6.25 mg tablet cloNIDine HCL 0.1 mg tablet diclofenac sodium gel irbesartan 150 mg tablet NIFEdipine XL 30 mg tablet Follow-up appointments and procedures Amb Consult/Follow Up External Services Reason for Request: hospital DC follow up Authorizing Provider: Delphine Beltrán PA-C Amb Consult/Follow Up Cardiology Reason for Request: resistant HTN Authorizing Provider: Delphine Beltrán PA-C Amb Consult/Follow Up Stroke Referral Question: Stroke follow up, selle turcica mass noted Even if a specific provider is requested above, please schedule this patient with the next available provider: Yes Context of Referral: Hospital Discharge Follow Up Follow Up Location: Patient to follow up with same org as discharge Please review/acknowledge: I have/will forward all pertinent neuroimaging to the applicable digitallibrary Please review/acknowledge: I have/will forward all pertinent prior neurologic evaluation reports tothe applicable location Authorizing Provider: Delphine Beltrán PA-C Amb Consult/Follow Up Vascular Surgery Reason for Request: Carotid stenosis, post CVA Authorizing Provider: Delphine Beltrán PA-C Follow-up labs and tests 30 DAY FIBER ANALYST Complete by: Mar 04, 2024 (Approximate) Authorizing Provider: Delphine Beltrán PA-C CT HEAD WO CONTRAST Complete by: Apr 04, 2024 (Approximate) Process Instructions: Creatinine drawn within 90 days is required for IV contrast for the followingrisk factors: High blood pressure, Age over 60, Diabetes and/or Renal Disease IV HYDRATION IS REQUIRED FOR PATIENTS WITH GFR (GLOMERULAR FILTRATION RATE) =< 30 RECEIVING IV CONTRAST. ORAL HYDRATION IS RECOMMENDED FOR PATIENTS WITH A GFR BETWEEN 31-59 RECEIVING IV CONTRAST. Preceding guidance is at the discretion of the ordering provider based on acuity and clinical indications (ie. Trauma, stroke, CHF, etc) Authorizing Provider: Delphine Beltrán PA-C I personally spent > 30 minutes reviewing the chart, evaluating and examining the patient, counseling and preparing the patient for discharge, and coordinating follow up. Delphine Beltrán PA-C 03/04/2024 10:36 documented in this encounter Discharge Instructions * Discharge Instr - AVS First Page* Delphine Beltrán PA-C - 03/04/2024 9:31 EDT You should obtain a blood pressure cuff upon discharge. Check your blood pressure every morning when you get up before starting your day. Sit down for 5 minutes before checking your blood pressure. Record these readings and take them to your PCP for further titration. If the top number is greater than 200, call your family doctor for further instruction. If BP is less than 130/80, hold meds and check again later. If elevated then, take AM meds. * Attachments The following attachments cannot be sent through Care Everywhere. * Hypertension (Czech) * Blood Pressure Test: Home (Czech) * Stroke: Secondary Prevention: General Info (Czech) documented in this encounter Medications at Time of Discharge Medication Sig Dispensed Refills Start Date End Date aspirin chewable 81 mg tablet Take 1 Tablet by mouth daily for 90 days. 30 Tablet 2 03/04/2024 06/02/2024 atorvastatin (LIPITOR) 40 mg tablet Take 1 Tablet by mouth at bedtime for 90 days. 30 Tablet 2 03/04/2024 06/02/2024 carvediloL (COREG) 6.25 mg tablet Take 1 Tablet by mouth 2 times daily with breakfast and dinner for 90 days. 60 Tablet 2 03/04/2024 06/02/2024 cloNIDine HCL (CATAPRES) 0.1 mg tablet Take 1 Tablet by mouth 2 times daily for 30 days. 60 Tablet 03/04/2024 04/03/2024 diclofenac sodium gel Apply 2 g topically 4 times daily for 30 days. As needed for wrist pain 250 g 03/04/2024 04/03/2024 irbesartan (AVAPRO) 150 mg tablet Take 1 Tablet by mouth daily for 90 days. 30 Tablet 2 03/04/2024 06/02/2024 NIFEdipine XL (PROCARDIA-XL) 30 mg tablet Take 1 Tablet by mouth daily for 90 days. 30 Tablet 2 03/04/2024 06/02/2024 documented as of this encounter Ordered Prescriptions Prescription Sig Dispensed Refills Start Date End Da te diclofenac sodium gel Apply 2 g topically 4 times daily for 30 days. As needed for wrist pain 250 g 03/04/2024 04/03/2024 irbesartan (AVAPRO) 150 mg tablet Take 1 Tablet by mouth daily for 90 days. 30 Tablet 2 03/04/2024 06/02/2024 NIFEdipine XL (PROCARDIA-XL) 30 mg tablet Take 1 Tablet by mouth daily for 90 days. 30 Tablet 2 03/04/2024 06/02/2024 cloNIDine HCL (CATAPRES) 0.1 mg tablet Take 1 Tablet by mouth 2 times daily for 30 days. 60 Tablet 03/04/2024 04/03/2024 carvediloL (COREG) 6.25 mg tablet Take 1 Tablet by mouth 2 times daily with breakfast and dinner for 90 days. 60 Tablet 2 03/04/2024 06/02/2024 atorvastatin (LIPITOR) 40 mg tablet Take 1 Tablet by mouth at bedtime for 90 days. 30 Tablet 2 03/04/2024 06/02/2024 aspirin chewable 81 mg tablet Take 1 Tablet by mouth daily for 90 days. 30 Tablet 2 03/04/2024 06/02/2024 documented in this encounter Discharge Disposition Disposition Code Departure Means Destination Comment s Home or Self Care Car Home Ambulated to car with and brother documented in this encounter Progress Notes * Fabiola Mckeon - 03/04/2024 1157 EDT DC Destination and with who: Home without services If Shelter, Level of Care: N/A Client and/or Family Aware and in Agreement with the dc plan: Patient understands and agrees with discharge plan. IM Issued: yes Community Service Referrals and Agency: N/A Was the Agency/Person Notified, Who, Contact Info?: N/A Any New Equipment/What Type and from where?: N/A Mode of Transportation and Agency: Patient is discharging home without services. Patients family to provide transportation home. Patient will be calling [facility] PCP office as he is now a new Patient there. Patient and family deny further questions. * Hanna Mann RN - 03/04/2024 1154 EDT A&Ox4, BP within parameters for discharge, remains on RA. C/o mild but tolerable wrist pain at time of discharge. Follows all commands and able to make needs known. Independent OOB. Voiding prn in urinal or bathroom, LBM 03/02. All belongings w/ pt and family members at time of discharge. Tele and PIV removed prior to d/c. Additional handouts regarding new medications printed and provided ([employer]). Pt and family members at bedside verbalized understanding of all education. Safety maintained. Pt denies further needs at this time. Ambulating to car, being driven home by family. * Hanna Mann RN - 03/03/2024 1837 EDT A&Ox4, elevated BP - new meds added for better control during dayshift, ongoing efforts. 1st degree AVB on tele, remains on RA, afebrile. Some complaints of pain in R wrist and pt newly c/o mild kidney pain that feels similar to when he has had kidney stones in the past - WILLIAM Beltrán notified. Pt continent and voiding in toilet, LBM 03/02. Independent OOB. Remains on regular diet, plan for NPOMN for renal artery US tomorrow AM. Follows commands and able to make needs known. Family members updated at bedside. Safety maintained. * Delphine Beltrán PA-C - 03/03/2024 1206 EDT Medicine Progress Note Service Date: 03/03/2024 Admit Date: 03/01/2024 9:51 Hospital Day: 2 PCP: NATHAN Cody Luis is a 69 y.o. male admitted with acute CVA. 24 Hour Events: Patient transferred out of the ICU overnight Patient with persistent hypertension with BP > 200/100 Subjective/Objective Subjective Patient reports that he is feeling well today, was hopeful for discharge home. He denies any headache, no shortness of breath, no chest pain. He is having occasional blurred vision, reports this has been ongoing for some time. Patient reports that he does not monitor his blood pressure closely at home but when he has checked it at home he reports his systolic numbers have been 190 or higher. He reports that he feels orthostatic with blood pressures under 160 systolically. No dysarthria. No weakness. Developed right wrist pain and swelling after hitting his wrist on the bed yesterday. Objective Vital Signs Temp: [36.4 ??C (97.6 ??F)-36.7 ??C (98 ??F)] ; Heart Rate: [65 BPM-73 BPM] , Pulse: --; BP: (183-224)/(88-103) ; Resp: [13-22] ; SpO2: [95 %-99 %] Physical Exam General: Alert and Oriented, NAD HEENT: PERRLA, Normocephalic, oral mucosa moist, visual acuity intact Lungs: CTA B/L, no adventitious breath sounds noted. Cardio: Regular rate and rhythm,no edema GI: Soft, non-tender, non distended, normal BS M/S: Strength intact UE and LE, no gross deformities Skin: Warm, dry, pink Neuro: no focal deficits, strength in UE and LE equal B/L, speech clear. NIH 0 Psych: cooperative, appropriate mood and affect Meds: Current Facility-Administered Medications: acetaminophen (TYLENOL) tablet 650 mg, 650 mg, Q6H PRN aspirin chewable tablet 81 mg, 81 mg, DAILY atorvastatin (LIPITOR) tablet 40 mg, 40 mg, QHS calcium carbonate (TUMS) tablet 500 mg (200 mg elemental calcium) 1 Tablet, 1 Tablet, Q6H PRN carvediloL (COREG) tablet 6.25 mg, 6.25 mg, BID (BREAKFAST/DINNER) cloNIDine HCL (CATAPRES) tablet 0.2 mg, 0.2 mg, BID diclofenac sodium gel 2 g, 2 g, QID enoxaparin (LOVENOX) injection 40 mg, 40 mg, DAILY [START ON 03/04/2024] irbesartan (AVAPRO) tablet 150 mg, 150 mg, DAILY lidocaine (PF) 10 mg/mL (1 %) injection 2 mg, 2 mg, PRN NIFEdipine XL (PROCARDIA-XL) tablet 30 mg, 30 mg, DAILY polyethylene glycol 3350 (MIRALAX) packet 17 g, 17 g, Daily PRN ramelteon (ROZEREM) tablet 8 mg, 8 mg, AT BEDTIME PRN Assessment/Plan Assessment Kip Smith is a 69 y.o. male who presented to the ED 03/01 with acute onset of dysarthria andweakness in the right hand initially with an NIH stroke score scale of 1. He was quickly evaluated by the telestroke neurologist and felt not to be a candidate for tPA. He was admitted to the ICU forclose neurological monitoring and supportive care and underwent an MRI which did reveal evidence ofa small cortical acute infarct in the frontal lobe as well as a newly noted 14 mm mass in the sellaturcica. Briefly required nicardipine drip while in the ICU for severe hypertension. Transferred out of ICU to [facility] overnight. This morning has ongoing severe, resistant hypertension. Plan Acute ischemic stroke MRI revealed small cortical acute infarct in the frontal lobe as well as newly noted 14 mm mass in the sella turcica Patient is now 48 hours out from onset, pursuing more aggressive management of hypertension Continue daily low-dose aspirin Continue Lipitor 40 mg nightly, started this admit, LDL 136 Cleared by PT/OT/STRUCTURAL STEEL PAINTER NIH has been 0 for > 48 hours, we will hold further stroke neuro checks unless patient has an acute change TTE w/o evidence of Left to right shunting Stroke neuro follow up on DC Resistant HTN, hypertensive urgency Patient reports longstanding hypertension as an outpatient, typically BP is greater than 190 systolically for him S/p nicardipine gtt in ICU, no signs of end organ dysfunction at this time Goal reduction of no more than 25% in the next 24 hours, goal BP would be around 175 systolically Irbesartan increased to 150 mg daily Added nifedipine 30 mg daily, Coreg 6.25 mg twice daily, and clonidine 0.1 mg 2 times daily. US Renal Artery duplex in AM to evaluate to ARMIN, NPO after midnight Right wrist pain Suspect strain XR negative for acute fx Tylenol and diclofenac gel PRN Moderate to severe carotid stenosis Vascular surgery referral at discharge Aspirin/statin as above Elevated creatinine: Unclear baseline, suspect CKD3 given creatinine 1.4-1.5. Treatment of hypertension as above VTE Prophylaxis: Enoxaparin Discharge Plan: Home once medically stable, pending better BP control CODE STATUS: Full Code Discussed with patient and family present I spent more than 50 minutes in clinical time solely dedicated to caring for this patient today. Time spent in review of the medical chart, review of labs, review of imaging, examining and evaluatingthe patient, treatment planning, placing orders, disease counseling, and discharge planning. This excludes time reported with other services. Delphine Beltrán PA-C, 03/03/2024 12:06 * Evie Bear RN - 03/02/2024 1636 EDT Pt arrived to unit from ICU @ approx 1520. Pts arriving BP 200/96, notified and aware. Pt is A&OX3 and able to make needs known. Maintain sats on RA without dyspnea noted. Independently ambulates in room with steady gait, continent, BM this shift. Denies SOB and pain. Pt rings call light appropriately and asks questions as they arise. Call light within reach hourly rounding performed for safety. FOUR EYES SKIN ASSESSMENT Four Eyes skin assessment was performed on admission to the unit by Evie Bear RN and Ha Anthony LPN. Patient has the following devices at the time of this assessment: BP cuff, Peripheral IV, and O2 sat probe. Device related pressure injury present? No Areas of concern: Fill in detail for areas of concern [] Occiput [] Nose [] Ear [] Lip [] Scapula [] Spinous process [] Shoulder [] Elbow [] Iliac crest [] Sacrum/coccyx [] Ischial tuberosity [] Trochanter [] Knee [] Malleolus [] Heel [x] Toe: Left great toe large brown callus [] Other: Last Andrew Score: 21 03/02/2024 16:49 Evie Bear RN * Lida Vasquez, OT - 03/02/2024 1603 EDT [facility] [place] Occupational Therapy Initial Evaluation Note/Single visit eval Date of Service: 03/02/2024 Diagnosis: CVA Date of Onset: 03/01/24 Referring Provider: Vik De Anda MD Reason for Referral: Evaluate and treat Precautions: permissive hypertension vs. excessive hypertension SUBJECTIVE: Subjective Statements Patient is currently having difficulty with: R hand coordination Patient/caregiver states: It's a lot better than it was yesterday! Patient/Caregiver Goals Patient and Caregiver Goals: Go home, Return to my normal life Reporting Person Subjective Information Reported by: Patient Pain Evaluation Pain Description: Pain did not interfere with treatment., No pain reported OBJECTIVE: Patient Profile: Patient is a 69 y.o. male admitted on 03/01/2024 secondary to Cerebrovascular accident (CVA), unspecified mechanism ([facility]). The patient lives at [address] [place] [address] General Information Hand Dominance: Right Social History: lives with S/O, retired, likes to garden and do yard work History of Present Illness / Injury Driving History: pt drives Present Injury / Illness Comment: MRI findings: Small focus of restricted diffusion within left frontal convexity cortex consistent with small cortical infarct. 2. Well-defined low signal 1.5 cm nodule within the right scalp, likely benign. Correlate clinically. 3. Expansion of the sella turcica containing a 13 x 8 x 14 mm cystic mass. Further evaluation with nonemergent pituitary protocol CT within 1 month is recommended. Safety Assessment / Living Environment Home environment: House Basic Home Layout Home layout: Two level Entrance Stairs: Stairs to enter with rails # of Steps to Enter: 8 Entrance Stairs - Rails: Left Bedrooms/Bathrooms: Able to live on main level with bedroom/bathroom Indoor Stairs: Indoor stairs with railings # of Indoor Steps: 15 Indoor railings: Left Support Support Person: Significant other Amount of Support: Alone during the day Prior Level of Function: Basic Activities of Daily Living - General Level of Assistance Throughout: Independent Instrumental Activities of Daily Living - General Level of Assistance Throughout: Independent Medical/Surgical History: CURRENT: The patient has Cerebrovascular accident (CVA) ([facility]); Cerebrovascular accident (CVA), unspecified mechanism ([facility]-CMS); Primary hypertension; and Stage 3 chronic kidney disease (HCC-CMS) on their problem list. PAST: The patient has no past medical history on file. Body Functions and Performance Skills Cardiovascular/Respiratory Systems Function: Vital Signs Blood Pressure (mmHg): 172/108 Mental Functions: Arousal/Alertness: Alert Orientation Level: Oriented X 4 Behavioral Characteristics Behavioral Characteristics: Pleasant and cooperative Clock Draw Test Clock Draw Test (0-7): 6 Manvel Making Test (TMT) Manvel Making - Part A (sec): 54 Manvel Making - Part B (sec): 125 The Manvel Making Test (TMT)^ Part A and B, is a test of general cognitive function which specifically assesses working memory, visual processing, visuospatial skills, selective and divided attention,processing speed, and psychomotor coordination (Deloris, 1998). Age-based normative values ([place], 2008) Age (years) Range (seconds): mean + 1 standard deviation Range (seconds): mean + 1 standard deviation Manvel A Manvel B 55-74 Education 0-16 20.1-45.3 50.4-111.2 Education 16+ 21.9-37.5 42.1-83.3 75-98 Education 0-16 31.4-58.2 67.2-152.2 Education 16+ 27.1-53.5 53.4-127.6 Numerous studies have demonstrated an association between poor performance on the TMTs and poor driving performance (Deloris, 1998). Manvel B scores of 180 seconds or more signals a need for intervention regarding driving skills per the [employer] (2010). The safe driving threshold cut-off points are 32 seconds for Manvel A and 79 seconds for Manvel B (Limon, 2016). Note: pt performed above test with R hand which is exhibiting some impaired coordination Mini-co/5 (2/3 word recall, 0/2 clock drawing - hands incorrect) Sensory Functions: Vision - Basic Assessment Current Vision: No new vision problems reported, Wears glasses for reading Acuity: Able to read clock/calendar on wall without difficulty, Able to read normal print without difficulty, Able to read employee name badge without difficulty Visual Smith: No problems noted Pt denied having double vision. He stated he had double vision when he was told he had MS at 15. Did not inquire further. This was not reflected in pt's chart. Notified MD of pt's comment. Oculomotor Nxwrra-Shqeii-Ihzlwzu Assessment Additional Comments: lack of fixation of target in superior smith both eyes when tested separately Saccades General Additional Comments: speed between targets appeared wnl Diplopia Assessment Is the patient experiencing diplopia?: No (pt commented that he had it prior whe he had MS Pt went on to say he was told this at 15) Neuromusculoskeletal and Movement Related Functions: Range of Motion: No problems noted General Coordination Coordination Additional Comments: slowed movement, decreased speed of movement/finger-nose, functional reaching/grasping with the right hand, slow and difficult hand writing Skin and Related Structure Functions: no problems noted Areas of Occupation and Performance Skills Basic Activities of Daily Living: Independent with eating, dressing, toileting. SBA for safety due to high blood pressure and wires with mobilizing in room, performing all functional transfers. No assist provided, AD or DME needed. Instrumental Activities of Daily Living: NT Informed Consent: Informed Consent: The patient consented to the Occupational Therapy evaluation. The patient agrees to and understands the Occupational Therapy treatment plan and goals. Interventions Completed Today: Occupational Therapy Today At: Time: 1130 Interventions Included Procedures: Self-care/home management Self-Care/Home Management 1: Provided build up for utensils and pen using coban wrap, pt reported and demonstrated improved proficiency with use. Patient Status at the End of the Therapy Session The patient was left in the: bed with the: Call naranjo in reach Patient Status at the End of the Therapy Session Comments: sitting EOB, eating lunch, daughter present, nurse aware Patient/Family Education: Education Topics Medical Information/Signs and Symptoms: Stroke signs and symptoms, Symptom recognition Recommendations: Discharge recommendations/planning, Follow-up services Therapy Specific: Role of occupational therapy, Treatment plan/goals Team Communication Communicated with: Team When: After therapy session By: Other About: outcome of OT eval , discharge recommendations. ASSESSMENT: Pt is a very pleasant 69 y.o. admitted with symptoms of dysarthria and R UE weakness and diagnosed with CVA. Pt is improved today with both his speech and his RUE weakness, however does continue to have decreased coordination and speed of movement in the RUE. He has no visual complaints and acuity does not seem to be affected, though he had some difficulty with tracking during the visual screen and scanning the menu. He does not seem to have any significant cognitive difficulties, though had errors with his word recall and clock drawing. 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 Short Term Goals: N/A - single visit Technician Support Engineer Goals: N/A PLAN: Recommended Discharge Destination: Home with caregiver support/supervision Lida Vasquez OT, 03/02/2024, 17:13 * Andreea Byrnes, PT - 03/02/2024 3729 EDT [facility] [place] Physical Therapy Single Visit Evaluation Note Date of Service: 03/02/2024 Diagnosis: CVA Date of Onset: 03/01/24 Referring Provider: Branden Galaviz Reason for Referral: Evaluate and treat Precautions: SUBJECTIVE: Patient is currently having difficulty with: R hand speed of movement Medical/Surgical History: Current: Patient Active Problem List Diagnosis Cerebrovascular accident (CVA) ([facility]) Cerebrovascular accident (CVA), unspecified mechanism ([facility]) Primary hypertension Stage 3 chronic kidney disease ([facility]) Past: No past medical history on file. No past surgical history on file. HPI: Support Support Person: Significant other Amount of Support: Alone during the day Prior level of function: Level of Assistance Throughout: Independent Home Environment: Safety Assessment / Living Environment Home environment: House Home layout: Two level Entrance Stairs: Stairs to enter with rails # of Steps to Enter: 8 Entrance Stairs - Rails: Left Bedrooms/Bathrooms: Able to live on main level with bedroom/bathroom Indoor Stairs: Indoor stairs with railings # of Indoor Steps: 15 Indoor railings: Left None Support Person: Significant other Amount of Support: Alone during the day Lives With: Significant Other OBJECTIVE: Patient Profile: Patient is a 69 y.o. male admitted on 03/01/2024 secondary to Cerebrovascular accident (CVA), unspecified mechanism ([facility]) The patient lives at [address] [place] [id number] Arousal, Attention, and Cognition: Orientation: Oriented to person, place, and time Cardiopulmonary: Patient vital signs stable per flowsheets and patient not symptomatic during examination Except for Integumentary/Anthropometric: Palpation/Observation: No problem noted Posture: No problem noted Range of Motion: Active Range of Motion: Within normal limits Muscle Performance: Strength: Formal resistive muscle testing was not performed due to ability to move against gravity and symmetrical neonatologist strength, palmar grasp. Note: patient had B Dupetryn's contractures Sensation, Reflexes, and Nerve Integrity: Light Touch Sensation: Upper Quarter:Intact C2-T1. No dulled or numb sensation to R UE Lower Quarter: Intact for lower extremities Neuromotor Function/Development: No problems noted Balance: No loss of balance observed throughout physical therapy session Bed Mobility and Transfers: I and safe Gait and Stairs: I without a device. Informed Consent: The patient consented to the physical therapy evaluation. The patient agrees to and understands thephysical therapy treatment plan and goals. Interventions Completed Today: Time: 1100 Total Treatment Time (minutes): 44 Timed Code Treatment Minutes: 0 Patient Status at the End of the Therapy Session The patient was left in the: bed with the: Call naranjo in reach Additional information may be available in the medical record. Patient/Family Education: Activity/Work/Community: Importance of out of bed activity, Pacing, Activity modification Mobility, Transfers, and Gait: Balance training Therapy Specific: Role of physical therapy ASSESSMENT: Physical Therapy Diagnosis: The patient presents with a physical therapy diagnosis of: Impaired movement system which is consistent with the medical diagnosis of: CVA Physical Therapy Assessment: Kip presents after having more pronounced R sided deficits most noticeable in UE. He currently shows slight speed of movement difficulties with R UE and describes this as a dulled hand. He can perform with symmetry and proper speed after R UE overload usage in closed chain and continued ith carry over. He demonstrated timely, balanced and safe gait and mobility. Based on performing multipleactivities and scored 1.8 on [place] Prognostic Test. This is favorable for a full recovery. He will not require additional follow up for physical performance. PLAN: Patient/Family Education: Discharge planning, Role of physical therapy/occupational therapy/rehabilitation, Patient education, Recommendations Discharge Recommendations: Recommended Discharge Destination: Home alone Therapy Specific Services: Occupational therapy, Outpatient therapy Team Communication: RNMD, CM, OT ANDREEA BYRNES, PT 03/02/2024 14:29 * Jessica Cohn - 03/02/2024 1119 EDT [facility] [place] Speech-Language Pathology Single Visit Evaluation Date of service: 03/02/2024 STRUCTURAL STEEL PAINTER Diagnosis: Cognitive Communication deficit: and Dysphagia, unspecified difficulty: Medical Diagnosis: Cerebrovascular accident (CVA) unspecified mechanism Reason for Referral: STRUCTURAL STEEL PAINTER Clinical swallow evaluation and treat (Stroke team panel) Referring Provider: Vik De Anda MD Start Time: 8:20 Total Therapy minutes: 31 min SUBJECTIVE: Patient reported no previous or current difficulty swallowing, reported when he had his stroke, he could not talk and could only say fair fair fair but then it resolved and he was slurring his speech going to the hospital yesterday but that now he feels his speech has completely resolved and back to his usual. OBJECTIVE: History: Per Vik De Anda MD on 03/01/24: Kip Smith is a 69 y.o. male with limited prior medical care, poorly controlled hypertensionwho presented to the [facility] with new onset right upper extremity weakness and dysarthria. Admitted with acute ischemic stroke with notable symptoms of right upper extremity weakness and transient dysarthria, severe HTN. Initial NIHSS equals 1. Telestroke recommending against tPA, initial gentle correction of blood pressures to target permissive hypertension range (180-220 systolic). It is possible he may have hypertensive emergency in the setting of a prior lacunar infarct though lesslikely given baseline BPs in the high 190s/200s SBP. MR head pending. Addendum: On MR head, in addition to cortical infarct noted, 14mm mass noted in sella turcica. Willstart workup with IGF-1, prolactin, TSH, ACTH and AM cortisol. Radiology recommending MR with pituitary protocol within 1 month. Principal Problem: Acute ischemic stroke ([facility]) PMH: No past medical history on file. Current Diet: Regular Diet Diet prior to admission: regular diet with thin liquids. Current Medications: Current Facility-Administered Medications Medication Dose Route Frequency Provider Last Rate Last Admin acetaminophen (TYLENOL) tablet 650 mg 650 mg oral Q6H PRN Vik De Anda MD aspirin chewable tablet 81 mg 81 mg oral DAILY Vik De Anda MD 81 mg at 03/02/24 0806 atorvastatin (LIPITOR) tablet 40 mg 40 mg oral QHS Vik De Anda MD 40 mg at 03/02/24 1001 calcium carbonate (TUMS) tablet 500 mg (200 mg elemental calcium) 1 Tablet 1 Tablet oral Q6H PRN Vik De Anda MD enoxaparin (LOVENOX) injection 40 mg 40 mg subcutaneous DAILY Vik De Anda MD 40 mg at 03/02/24 0806 irbesartan (AVAPRO) tablet 75 mg 75 mg oral DAILY Vik De Anda MD 75 mg at 03/02/24 1002 lidocaine (PF) 10 mg/mL (1 %) injection 2 mg 2 mg intradermal PRN Vik De Anda MD polyethylene glycol 3350 (MIRALAX) packet 17 g 17 g oral Daily PRN Vik De Anda MD ramelteon (ROZEREM) tablet 8 mg 8 mg oral AT BEDTIME PRN Vik De Anda MD Current Status: Cognitive Status: Patient was alert and cooperative during evaluation. Respiratory Status: Respiratory status was judged to be WFL to support oral feeding. Clinical Swallow Evaluation: Patient/Family: consented to completing the clinical bedside swallow exam. Oral Peripheral Motor Exam: Face: Face was symmetrical with adequate strength and range of motion. Parshall tapping bilaterally. Lips: Adequate labial strength and range of motion. Tongue: Adequate lingual strength, range of motion and coordination. Velum: Symmetrical soft palate elevation during phonation attempts. Dentition: Wears dentures on top and bottom. Laryngeal Excursion: Within functional limits with anterior tipping upon palpation. Speech Intelligibility: Speech with functional intelligibility. No deficits noted. Vocal Quality: Patient presents with a clear vocal quality. Cough: Patient presents with a strong, productive cough. Positioning: Seen at bedside for evaluation. Sitting at edge of bed, finishing his breakfast. Consistencies Tested: was assessed with thin liquids and solid foods. Methods of Delivery: Patient was able to self administer all items without STRUCTURAL STEEL PAINTER assistance using a spoon, cup and straw. Oral Phase Findings: Oral phase of swallowing is within normal limits. Patient presents with adequate oral containment, functional chewing and appropriate bolus transport for all consistencies tested. Pharyngeal Phase: Pharyngeal phase of swallowing is within normal limits. Patient presents with timely swallow response, adequate hyo-laryngeal excursion via palpation. No overt signs/ symptoms of laryngeal penetration/ aspiration were identified. Cognitive Linguistic Assessment: Prior level of cognitive/linguistic function: Reported no concerns. Behavior: During evaluation today, patient presented as awake, alert, cooperative, conversant, and engaged. The [facility] Mental Status Examination (UMS) and Informal measures were utilized toevaluate current speech-language/cognitive-linguistic function. [facility] Mental Status Exam (UMS) The UMS can be used as a screen for cognitive deficits in the domains of Attention, Immediate recall, Orientation, Delayed recall, Numeric Calculation and Registration, Verbal Fluency, digit span, Visual spatial skills, and executive function. Scores of 27-30 are considered Within Normal Limits; Scores below 27 indicate cognitive deficit Orientation: Day of the Week: 08/03 Year: 08/03 State: 08/03 Numeric Calculation/Registration: Calculation: 08/03 Registration: 0/2 Verbal Fluency: (Animals/Minute =18; Norm=15+) Score: 3/3 Delayed Recall: 5 Object Recall: 4/5 Reverse Digit Span: 2/2 Clock Drawing/Exec Func: 2/4 Following Directions/Visual: 2/2 Story Recall/Aud Comp: 6/8 TOTAL SCORE: 23/30 Interpretation: Mild Patient reports high school graduate High School Education Less than High School Education 27-30 Normal 25-30 21-26 Mild Neurocognitive Disorder 20-24 Speech-Language Function: Auditory Comprehension: Patient able to follow task instructions and answer questions in conversation without need for modification or cueing. Shelli-Motor Evaluation/Motor Speech: Conversational speech and grandfather passage, speech clear no deficits noted Speech Intelligibility: Speech with functional intelligibility. No deficits noted. Voice: clear Verbal Expression: Patient demonstrates ability to express basic thoughts and needs without evidence of anomia or paraphasias and Conversational Level: Patient presents with fluent expression. Reading Comprehension: Patient was asked romano details from short reading passage was 100% accurate (5/5) Written Expression: Not formally evaluated Augmentative/Alternative Communication: n/a Social-Pragmatic Skills: Eye contact: Patient with good eye contact throughout session. Facial Expression/Affect: Patient demonstrates full and appropriate affect. Prosody/Inflection: Patient demonstrates good vocal inflection. Initiation of Conversation: Patient demonstrates good initiation in conversation. Turn-Taking: Patient demonstrates good attention to non-verbal cues. Patient discourse noted to be functional. Cognitive-Linguistic: Attention/Concentration: Sustained attention for 30 minute session, required some repetition of instructions Orientation: Patient is oriented to person, place, time, date, situation, and environment. Recall: Immediate: functional (5/5) recalled across 3 trials in SLUMS Short-term: mildly reduced (4/5) on SLUMS Patient's recall for functional, daily events is intact Categorization/Association: Not formally evaluated. Organization: Not formally evaluated. Problem Solving/Reasoning: Not formally evaluated. Math word problems: see SLUMS ; patient accurately identified amount spent, was not able to identify how much was left over, and required repetition of word problem. Insight/Judgment: not formally evaluated. Appears to be functional. Patient/Family Education: Topic: Patient/Family education and training was completed today including the role of Speech-Language Pathology, results of today's exam/recommendations, and questions were addressed. Learner: patient Method of Education: Verbal Barriers to Learning/Education: none Patient: was able to verbalize understanding of information Family: not present Assessment /Clinical Impressions: is a 69 y.o. male admitted with cerebrovascular accident (CVA) . A clinical swallow evaluation was completed today by Speech Language Pathology secondary to concerns for oropharyngeal dysphagia, and risk of laryngeal penetration/aspiration. currently presents with no oropharyngeal phase dysphagia. remains at low risk of aspiration/airway compromise including obstruction, congestion and infective sequelae of aspiration. Actual risk of acquiring aspiration pneumonia if endotracheal aspiration occurs is considered very based on the presence of the following factors which research indicates predisposes an individual to aspiration pneumonia: reduced level of physical activity. Anticipate patient will continue to tolerate a regular diet with thin liquid. The patient's presentation is mildly impaired based on the results of today's test results., The patient presents with functioning consistent with: Communicative-Cognitive Deficits (memory attention,and processing), Basic receptive and expressive language function appears within functional limits b ased on evaluation., Patient currently able to communicate basic wants and needs and direct his medical care., Given patient's age, independence prior to admission, and social/occupational demands, he would benefit from STRUCTURAL STEEL PAINTER intervention., and Based on the patient's premorbid level of functioning, me dical diagnosis, comorbidities and patient/family support, the patient's prognosis is considered: Excellent. Plan /Recommendations: I do not anticipate further STRUCTURAL STEEL PAINTER intervention/managements needs in this setting. Please feel free toreconsult if patient demonstrates poor tolerance of recommendations listed below. Referrals: none STRUCTURAL STEEL PAINTER follow-up: Not indicated in this setting. Discharge Plan: return home. May benefit from outpatient or home health STRUCTURAL STEEL PAINTER for mild cognitive communication deficits. Jessica Cohn 03/02/2024 11:19 Associated attestation - Amanda Sands MS CCC-STRUCTURAL STEEL PAINTER - 03/02/2024 1216 EDT AMANDA SANDS MS CCC-STRUCTURAL STEEL PAINTER was present throughout the entire session and directed the care of the patient by the therapy student. AMANDA SANDS MS CCC-STRUCTURAL STEEL PAINTER 03/02/2024 12:16 * Marlon Leon - 03/02/2024 0997 EDT Initial Case Management/Social Work Assessment and Discharge Plan/Readmission Risk Assessment REASON FOR ADMISSION: Cerebrovascular accident (CVA), unspecified mechanism ([facility]) Patient understands reason for admission: Yes PATIENT INFO VERIFIED: PCP, Contact Info, Address Type of housing (single family, condo, apartment, shelter, single room occupancy, [facility] funded hotel room, group long term) - single family home Who does the patient live with? Sig other Does the patient have access to their own bedroom/bathroom/kitchen - or is it shared with others? shared Name of housing complex (ex [facility], [facility], [facility], etc)- n/a Housing Authority/Managing Organization - n/a Community Care Providers (case finishing machine adjuster, [facility] nurse, etc) name and contact information- n/a LIVING ARRANGEMENTS AND ACCESSIBILITY ISSUES: Living Arrangements: Spouse / significant other, Private residence Levels: 2 Stairs to enter: 4 or more (8 steps with rail to enter) Handicap access: Railings into home Bathroom located on bedroom level?: Yes What in home social supports are available to the patient? Children, Spouse / significant other Is 24/7 care available? NA ADVANCED DIRECTIVES, POA &/or COLST IN PLACE: Healthcare Directive: Yes, patient has advance directive for healthcare treatment Type of Healthcare Directive: Health care treatment directive Copy in Chart: No, copy requested from family DIRECTIVES FOR FINANCES: TRANSPORTATION: Transportation: Family Does the patient need discharge transport arranged?: No Transportation Additional Details: sig other or daughter will transport Final Discharge Destination: home CULTURAL, QUAKER and/or LANGUAGE factors affecting health care/discharge planning: Spiritual/Cultural Requests: None Insurance Information: Medical Insurance: Yes Type of insurance: Medicare Medicare type: A, B Nutrition: DISCHARGE RISK ASSESSMENT: Lives at home with limited or no community support;Polypharmacy, > 7 medications;Issues with health literacy Total # selected above: Score of 2 - 4: This patient is at MODERATE RISK for re-hospitalization Tentative plan to address the risk of re-hospitalization for those at HIGH MODERATE RISK: RAPT TOOL: Age: 66-73 Gender: Male Ambulation distance: 2 or more blocks (600ft) Gait device: Single point device Community Services: Home health, [facility], [facility]-none of one time a week Will you live with someone who will care for you?: Yes RAPT Tool Score: 10 Expected Discharge Disposition: Home or Self Care SBIRT: FUNCTIONAL STATUS: Activities patient requires assistance: Mobility Assistive Devices: Cane, Grab bars, Walker COMMUNITY RESOURCES/SUPPORTS: Primary Care Provider: NATHAN TOBIN PCP Verified: Specialists: None Type of Home Health Services: None DME Provider: Pharmacy: [id number] - [place] - [address] [facility] [id number] [id number] - [place], [place] - [address] [place] [address] Home Health: Other: [facility] HOSPITAL TRANSITION PLAN: home Completed screen with patient. Confirmed demographics, contacts, preferred pharmacy is [facility] in [place]. PCP not verified- patient states he is seen at [facility] but hasn't seen a doctor in years. CM followed up with [facility] and they state patient is not on file with them. They are accepting new patients now, and will take him on as a new patient, they are sending paperwork for patient to complete and send back. CM will need to contact them re: timeframe patient needs to be seen after discharge from the hospital. No HC directive on file. Patient states he does have one and his sig other should know where it is.He expressed that his sig other Olga and his daughter Brie can make medical decisions for him if he cannot. He states he doesn't want to be a vegetable. Requested that patient or sig other bring copy of his HC directive to hospital. Patient lives with sig other in a 2 level home with 8 steps w/railing to enter. He states that he lives on the first level. At baseline he sometimes uses a cane when his feet are bothering him, he states he can walk about amile outdoors. He also has grab bars and a walker he doesn't use. Patient is independent with daily activities. Patient declined HH choice, does not feel he would need services at discharge. Sig other or daughter will provide a ride home. Patient expressed confusion about his insurance coverage, is open to referral to community health worker to assist with following up on this. Referral should be made to Community health worker at [facility] at discharge. MARLON LEON 03/02/2024 9:27 * Branden Galaviz, DO - 03/02/2024 0811 EDT Critical Care Progress Note Service Date: 03/02/2024 Admit Date: 03/01/2024 9:51 Reason for Admission to ICU: 69 y.o. male admitted with a chief complaint of right-sided weakness and now with a principal diagnosis of Cerebrovascular accident (CVA), unspecified mechanism ([facility]). Critical and life-threatening events over the past 24 hours: Patient admitted to the ICU for close neurological monitoring. Started on nicardipine briefly overnight for severe hypertension Subjective/Objective Subjective Patient seen and examined this a.m. on rounds. Patient states his neurological deficits have greatly improved although he still feels a bit numb in his right hand. He states he wants to go home. He denies any new chest pain shortness of breath or fever or chills Review of Systems As per HPI all other systems are reviewed negative Objective Blood pressure (!) 203/113, temperature 36.8 ??C (98.3 ??F), temperature source Oral, resp. rate 11, height 182.9 cm (72), weight (!) 125 kg (275 lb 9.6 oz), SpO2 97%. Physical Exam General appearance: alert, cooperative, no distress, mild respiratory distress on Head: Normocephalic, without obvious abnormality, atraumatic Eyes: anicteric, PERRL, EOM intact. Lungs: CTA with good inspiratory effort Chest wall: no tenderness, port site non-tender Heart: regular rate and rhythm, S1, S2 normal, no murmur, click, rub or gallop Abdomen: ND, soft, non tender to palpation, no HSM appreciated Extremities: no cyanosis trace edema. Pulses: 2+ and symmetric Skin: Skin color, texture, and turgor normal. No rashes or lesions Neurologic: CN II-XII intact, nonfocal strength is 5 out of 5 in upper and lower extremities bilaterally Results for orders placed or performed during the hospital encounter of 03/01/24 (from the past 24 hour(s)) TRANSTHORACIC ECHO (TTE) COMPLETE Result Value Ref Range Mitral deceleration time 176 ms MR Vmean 0.59 m/s AV DOI 0.74 LV Diastolic Volume 135 mL LV Systolic Volume 62 mL Mitral A-wave peak velocity 0.6 m/s Mitral valve, LVOT continuity 24.50 cm2 Mitral E-wave peak velocity 0.9 m/s Mitral peak gradient, D 9 mmHg Aortic peak gradient, S 7 mmHg Stroke volume (SV), LVOT DP 68 ml Aortic valve VTI, S 27.0 cm Aortic valve peak velocity, S 1.3 m/s LVOT VTI, S 21.5 cm LVOT peak velocity, S 1.0 m/s LVOT area 3.1 cm2 LVOT ID, S 2.0 cm Mitral valve area, LVOT continuity 2.80 cm2 Mitral mean gradient, D 2 mmHg AV LVOT peak gradient 4 mmHg Velocity ratio, mean, LVOT/AV 0.76 Aortic mean gradient, S 4 mmHg Aortic valve area, peak velocity 2.3 cm2 Aortic valve area VTI 2.5 cm2 LVOT mean gradient, S 2 mmHg LV ejection fraction, 1-p A4C 60 % LV ejection fraction, 1-p A2C 59 % Aortic valve mean velocity, S 0.9 m/s Aortic valve area 2.4 cm2 Aortic root ID 3.4 cm EF 60 % LV ID, ES, PLAX 3.8 2.1 - 4.0 cm LV ID, ED, PLAX 5.3 3.5 - 6.0 cm LV E/e', lateral 5.4 LA volume, ES, BP 96.0 ml LA Atrial Length A2C 5.7 cm LA volumes, ES, A4C 100.0 ml Pulmonic valve mean velocity, S 1 cm/s LA ID/bsa, A-P 1.6 cm/m2 LA ID, A-P, ES 4.2 cm LV end-diastolic volume, 1-p A4C 190 ml LV end diastolic volume 1-p A2C 217 ml Stroke index (SV/bsa) LVOT DP 26.0 ml/m2 LA/aortic root ratio 1.24 LV E/e', lateral 16.8 LV E/e', medial 20.5 LV e', lateral 5.40 cm/s LV e', medial 4.50 cm/s LVOT mean velocity, S 0.7 m/s LV E/e', average 19 Mitral E/A ratio, peak 1.60 Heart Rate 73.0 bpm IVS thickness, ED, PLAX 1.1 cm LV PW thickness, ED, PLAX 1.3 0.6 - 1.1 cm COMPREHENSIVE METABOLIC PANEL (CMP) Result Value Ref Range Sodium 136 136 - 145 mmol/L Potassium 4.3 3.5 - 5.0 mmol/L Chloride 101 96 - 110 mmol/L CO2 Total 26 22 - 32 mmol/L Glucose 114 (H) 70 - 99 mg/dl BUN 21 10 - 26 mg/dL Creatinine 1.49 (H) 0.66 - 1.25 mg/dL eGFR 50 (L) >60 mL/min/1.73m2 Total Protein 6.8 6.3 - 8.2 g/dL Albumin 3.9 3.4 - 4.9 g/dL Alkaline Phosphatase 66 38 - 126 U/L AST 17 15 - 46 U/L ALT 13 <50 U/L Bilirubin, Total 0.6 <1.4 mg/dL Calcium 9.0 8.5 - 10.5 mg/dL Albumin/Globulin Ratio 1.3 1.0 - 2.5 Anion Gap 9 5 - 14 mmol/L COMPLETE BLOOD COUNT Result Value Ref Range WBC 8.33 4.00 - 10.40 K/cmm RBC 4.32 (L) 4.36 - 5.78 M/cmm Hemoglobin 13.6 (L) 13.8 - 17.3 g/dL HCT 41.6 39.5 - 50.2 % MCV 96 (H) 81 - 95 fL MCH 31.5 27.6 - 33.0 pg MCHC 32.7 (L) 32.8 - 36.4 g/dL RDW-CV 13.2 <14.2 % RDW-SD 47.0 (H) <46.0 fl PLT 220 141 - 377 K/cmm MPV 10.6 9.5 - 12.7 fL CORTISOL Result Value Ref Range Cortisol 10 See Note ug/dL LIPID PROFILE (INCLUDES CHOLESTEROL, TRIGLYCERIDES, HDL, LDL) Result Value Ref Range Cholesterol 205 (H) <200 mg/dL HDL 46 >=40 mg/dl LDL, Calculated 136 <160 mg/dL Triglyceride 117 <=150 mg/dL Chol/HDL Ratio 4.5 See Note Non HDL Cholesterol 159 <160 mg/dL Assessment/Plan Assessment Patient is a 69-year-old male who presents to the ED with acute onset of dysarthria and weakness inthe right hand initially with an NIH stroke score scale of 1. He was quickly evaluated by the telestroke neurologist and felt not to be a candidate for tPA. 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 Patient is clinically improving and I think can be transition to the MedSurg unit with telemetry monitoring while we continue aggressive secondary stroke prevention with high intensity statin, DVT prophy laxis and blood pressure control. Plan Pulmonary Currently patient is stable on room air without new issues. Cardiac Blood pressure remains elevated and we have started oral irbesartan 75 mg to start today. Goals forslow and gentle lowering of the patient's systolic and diastolic blood pressures. Patient does have trace edema and echocardiogram shows preserved LVEF with evidence of diastolic dysfunction likely from poorly controlled hypertension. Will hold off on diuresis for now. Renal Intake/Output Summary (Last 24 hours) at 03/02/2024 0811 Last data filed at 03/02/2024 0440 Gross per 24 hour Intake 520 ml Output 1320 ml Net -800 ml Daily Fluid Goal: Last BM: 02/29/24 (pt denied any issues or concerns) Even GI Nutrition Last BM: 02/29/24 (pt denied any issues or concerns) Advancing diet as tolerated. Patient has been seen and evaluated by speech pathology and has passedthe swallowing study without issues. Infectious Disease Currently no indications for IV antibiotics Hematologic Patient is receiving enoxaparin for DVT prophylaxis Neurologic CAM-ICU: Negative Patient will undergo stroke education today and will continue on high intensity statin as well as DVT prophylaxis. We have consulted physical therapy as well as Occupational Therapy Endocrine Blood sugars have been stable hemoglobin A1c shows evidence of prediabetes. Lines None Prophylaxis Enoxaparin Mobility Out of bed to a chair and ambulation as tolerated. Code Status: Full Code. Clinical Condition: Stable Critical Care Daily Checklist: Completed Branden Galaviz DO 03/02/2024 8:11 * Lindsey Trimble RN - 03/01/2024 1644 EDT FOUR EYES SKIN ASSESSMENT Four Eyes skin assessment was performed on admission to the unit by Lindsey Trimble RN and Chula Saldana RN. Patient has the following devices at the time of this assessment: BP cuff, Peripheral IV, and O2 sat probe. Device related pressure injury present? No Areas of concern: Fill in detail for areas of concern [] Occiput [] Nose [] Ear [] Lip [] Scapula [] Spinous process [] Shoulder [] Elbow [] Iliac crest [] Sacrum/coccyx [] Ischial tuberosity [] Trochanter [] Knee [] Malleolus [] Heel [x] Toe Left 4th toe [] Other: Last Andrew Score: 20 Instructions: Add LDA for any identified wounds Add Jackson image for any suspected PI or non surgical wounds Order wound consult if suspected PI identified If Andrew is < or = to 16, initiate Pressure Injury Prevention Bundle ([id number]). 03/01/2024 16:44 * Charisse Granados, RT - 03/01/2024 1642 EDT Respiratory Consult/Progress Note Indications for Respiratory therapy: initial consult Data Vitals: Heart Rate: 67 BPM, Resp: 23, SpO2: 100 % FIO2/O2 Device: O2 Flow Rate (L/min): 0 l/min, , O2 Device: None, RT Orders: Protocol Scoring: Bronchodilator/Inhalation Therapy Frequency Bronchodilator - Clinical Indications: No clinical indications Breath Sounds: Clear Response: No change / no treatment Pulse: <100 Resp Rate: 26-32 SOB: None Total Score: 2 Comment:: prn Frequency Based On Total Score: 0-4 = PRN 5-7 = QID 8-10 = Q4H 11-12 = Q2H Airway Clearance Therapy Frequency Airway Clearance - Clinical Indications: No clinical indications Breath Sounds: Clear / diminished Sputum: Small (tsp) / None Consistency: None Cough Effort: Strong/ non-productive Color: None Total Score: 0 Comment: prn Frequency Based On Total Score: 0-3 = PRN 4-6 = QID and PRN 7-9 = Q4H and PRN 10-11 = Q2H and PRN Hyperinflation Therapy Frequency Hyperinflation - Clinical Indications: No clinical indications Breath Sounds: Clear Surgery: No X-Ray / Atelectasis: No O2 Requirements: O2 at baseline Mobility Status: Mobile / at baseline Total: 0 Comment: prn Frequency Based On Total Score: 0-3 = PRN 4-6 = QID and PRN 7-9 = Q4H and PRN 10-12 = Q2H and PRN Action/Events Respiratory events; Initial consult complete. Pt does not wear oxygen at home. Pt does not have a hx of COPD or asthma. Pt does not have BIPAP/CPAP Pt does not use any MDI'S/Nebs CHARISSE GRANADOS, RT 03/01/24 documented in this encounter H&P Notes * Vik De Anda MD - 03/01/2024 1253 EDT Images from the original note were not included. [facility] Medicine Admission History & Physical Service Date: 03/01/2024 Admit Date: 03/01/2024 9:51 Primary Care Provider: NATHAN TOBIN Chief Complaint: weakness HPI Kip Smith is a 69 y.o. male with limited prior medical care, poorly controlled hypertension, CAD, chewing tobacco use, who presented to [place] [facility] [place] with new onset right upper extremity weakness and dysarthria. Mr. Wyman follows at [place] [facility] office. He is not currently on any medications and does not regularly see his doctor. Has been many years since he has seen a doctor. Previously saw Dr. Rosario of cardiology for CAD. He has had poor tolerance of blood pressure medications in the past (lisinopril, ?hydrochlorothiazide), and thus is not on antiantihypertensives at this time. His blood pressure can be regularly in the 200s SBP per his significant other. This morning he felt in his normal state of health when he got up at 6 AM. [place]arshall generally well until he began to notice right upper extremity weakness and difficulty speaking clearly while on the phone with his daughter at 8:05 AM. EMS was called, though he initially had resolution of his symptoms. Then while in transport he began to have dysmetria in the right hand and again some slurring of words. He denies active chest pain, shortness of breath, nausea, vomiting, headache. He has periodic lower extremity swelling that seems to be worse at the end of the day while standing. He also has 2 small ulcerations that appear to be superficially ulcerated warts on his toes bilaterally. Upon arrival to the ED, his NIHSS was 1 for dysmetria in the right hand. He had mild right upper extremity drift as well. Vital signs were notable for hypertension at 241 systolic, otherwise stable. Chemistry panel with creatinine 1.42, unknown baseline. Glucose 100. Troponin x 1 negative, ethanol level negative, LFTs normal. CBC fairly unremarkable, INR 1.1, UA negative. He underwent CT head andangiogram which showed small lacunar infarct on the left of uncertain chronicity. He additionally had narrowing of the right and left cavernous internal carotid arteries with moderate stenosis on theright and moderate to severe stenosis on the left. His case was discussed with [facility] telestroke neurology who evaluated him and found NIHSS equals 1. Recommended against tPA, as well as targeted blood pressure control for initial permissive hypertensive range of 180-220 SBP. He was started on a nicardipine drip. MRI was ordered. He elects full code status though has not completed an advance directive. Would not want prolonged life support. Was accompanied by multiple friends/family in the room including his significant other. 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 EtOH includes 1-2 drinks per evening. Review of Systems A complete 10 point ROS was performed and pertinent positive and negative findings listed in HPI, otherwise negative. Subjective/Objective Chart review No past medical history on file. No past surgical history on file. Social History Tobacco Use Smoking status: Not on file Smokeless tobacco: Not on file Substance Use Topics Alcohol use: Not on file No family history on file. No current outpatient medications No Known Allergies Objective VITALS: BP (!) 222/164 Temp 36.7 ??C (98.1 ??F) (Oral) Resp 24 SpO2 93% PHYSICAL EXAM Gen: Sitting up, nontoxic HEENT: EOMI, MMM, no scleral icterus Neck: supple CV: RRR, no m/r/g Pulm: CTAB, good air movement, no w/r/r Abd: Obese, soft and nontender to palp : No phan Extrem: Bilat lower extremity edema. Small ulcerations on his feet bilat. Bilateral trigger fingers. Neuro: No dysarthria, no pronator drift. 5/5 upper extremity strength with arm raise, 5/5 lower extremity strength with leg raise, 5/5 strength with dorsiflexion/plantarflexion bilaterally. Mildly dmininished rapid alternating movements on the right compared to the left. NIHSS at admission = 1 as noted below. Skin: Warm, dry, no rashes Psych: Appears euthymic, A&Ox3, interacts appropriately Sacrum: Not examined LABS I have personally reviewed the following: No results for input(s): GLUCOSEFINGE in the last 72 hours. No results found for: HGBA1C Recent Labs 03/01/24 1008 WBC 9.86 RBC 4.86 HGB 15.8 HCT 47.5 MCV 98* PLT 241 Recent Labs 03/01/24 1008 NA 136 K 4.4 CL 100 CO2 26 BUN 15 CREATININE 1.42* MG 1.9 Recent Labs 03/01/24 1008 ALKPHOS 83 AST 22 ALT 15 TBIL 0.7 Recent Labs 03/01/24 1008 PROTIME 12.0 PTT 30 INR 1.1 No results for input(s): PHISTAT, PCOISTAT, POISTAT, [id number], BEART, POCFIO2 in the last 72 hours. Recent Labs 03/01/24 1008 TROPONINI <0.034 Recent Labs 03/01/24 1008 LABSPEC 1.010 PHUR 7.5 GLUCOSEU Negative BILIRUBINUR Negative KETONES Negative BLOODU Negative NEW IMAGING I have personally reviewed the following: XR CHEST PORTABLE 1 VIEW Result Date: 03/01/2024 Cardiomegaly and possible hazy airspace opacities, raising the possibility of mild pulmonary edema.Please note, assessment of the lungs is limited due to patient body habitus. [id number] CT HEAD WO CONTRAST Addendum Date: 03/01/2024 Addendum: I personally communicated these findings to Dr. Ferreira on 03/01/2024 10:31 AM. [id number] Result Date: 03/01/2024 1. Vague hypodensity within the left basal ganglia suspicious for lacunar infarct, of uncertain age. 2. Indeterminate subcutaneous 15 mm soft tissue density nodule containing calcifications within the posterolateral right scalp. Correlate clinically. [id number] CT ANGIO HEAD NECK Result Date: 03/01/[address] ANGIOGRAM IMPRESSION: 1. Irregular narrowing of the right and left cavernous internal carotid arteries with moderate stenosis on the right and moderate/severe stenosis on the left. 2. Mild irregular narrowing of the right M1 segment. 3. Patent dominant left vertebral artery and variant PICAtermination of the right vertebral artery. CT ANGIOGRAM [...] to Dr. Ferreira on 03/01/2024 10:31 AM. [id number] EKG Sinus rhythm with first-degree block, QTc 460 Assessment Kip Smith is a 69 y.o. male with limited prior medical care, poorly controlled hypertensionwho presented to [place] [facility] [place] with new onset right upper extremity weakness and dysarthria. Admitted with acute ischemic stroke with notable symptoms of right upper extremity weakness and transient dysarthria, severe HTN. Initial NIHSS equals 1. Telestroke recommending against tPA, initial gentle correction of blood pressures to target permissive hypertension range (180-220 systolic). It is possible he may have hypertensive emergency in the setting of a prior lacunar infarct though lesslikely given baseline BPs in the high 190s/200s SBP. MR head pending. Addendum: On MR head, in addition to cortical infarct noted, 14mm mass noted in sella turcica. Willstart workup with IGF-1, prolactin, TSH, ACTH and AM cortisol. Radiology recommending MR with pituitary protocol within 1 month. Principal Problem: Acute ischemic stroke ([facility]) Plan by problem #Acute ischemic stroke, possible hypertensive emergency: - Nicardipine drip for initial correction as above - Allow for permissive hypertension x 24 hours - Initiate PO antihypertensive therapy prior to discharge (irbesartan 75mg ordered for AM. Has not tolerated lisinopril/hydrochlorothiazide previously) - Status post aspirin 324 mg x 1 in the ED, continue 81 mg daily - Start atorvastatin 40 mg nightly - Lipid panel, A1c screening - Stroke neurochecks every 4 hours - MR head ordered - Past RN dysphagia eval - PT/OT/[employer] STE[employer] - TTE with bubble study - Telemetry #Poorly controlled hypertension: #CAD - Management as above -- Salt restricted diet #First-degree AV block - Telemetry #Moderate to severe carotid stenosis - Vascular surgery referral at discharge - Aspirin/statin as above #Elevated creatinine: Unclear baseline, potential RAMON (less likely) versus CKD3 given creatinine 1.4. - Renally dose medications - Trend electrolytes and renal function closely - Treatment of hypertension as above with ARB #Bilat lower extremity swelling: likely degree of vascular insufficiency, possible HFpEF given habitus --BNP --TTE as above Miscellaneous FEN: DIET REGULAR PPx: Enoxaparin ordered for AM Code: Full Code Discharge Plan: ELY 2 days Consults: Stroke neurology Admission Status Inpatient. Anticipated duration of hospitalization is greater than two midnights due to Stroke. I spent a total of 75 minutes on the date of this encounter meeting with the patient and reviewing documentation/coordinating care as described in the above note. This note was written with voice recognition software thus please excuse any inadvertent misspellings or errors. Vik De Anda MD 03/01/2024 14:56 Additional Information for Stroke Stroke code: Last Known Well Time: 804 Date: 03/01/24 [facility], NIHSS: 03/01/2024 10:28 03/01/2024 10:39 03/01/2024 11:25 NIHSS Criteria LOC 0 LOC Questions 0 LOC Commands 0 Best Gaze 0 Visual 0 Facial Palsy 0 Left Arm, Motor 0 Right Arm, Motor 0 Left Leg, Motor 0 Right Leg, Motor 0 Limb Ataxia 1 Sensory 0 Best Language 0 Dysarthria 0 Extinction/Inatten. 0 Total Score 1 0 1 t-PA Decision: Per neurology not a candidate. documented in this encounter ED Notes * Tiff Garcia - 03/01/2024 1015 EDT 12 Lead EKG Performed by TIFF GARCIA and shown to Benny Ferreira MD * Benny Ferreira MD - 03/01/2024 0949 EDTAssociated Order(s): Critical Care Emergency Department Visit 69-year-old male with untreated hypertension, oral tobacco use, history of previous CAD presenting with slurred speech and right upper extremity weakness which has improved since earlier this morning. CT/CTA immediately obtained. No acute bleed, Findings suspicious for left basal ganglia CVA, age undetermined CTA showed marked atherosclerotic disease with some narrowing but no large vessel occlusion Blood work was largely unremarkable, creatinine 1.42 without any recent previous values to compare to, troponin was negative and glucose was normal, coagulation studies were normal. EKG demonstrated sinus rhythm with PACs, Initial NIHSS is 1 for right-handed dysmetria Patient passed dysphagia screen Telestroke consultation was obtained, NIHSS was also recorded as 1 and unchanged, given labile pressures, with increased risk of bleeding and minimal deficits tPA was not recommended. Targeted blood pressure control with allowance for permissive hypertension was suggested as well asaspirin therapy and high-dose statin therapy. Patient received adult aspirin and nicardipine drip was started to achieve blood pressure goals. Patient required mission to the hospital for further telemetry monitoring, blood pressure control with transition to an oral regimen, MRI and echocardiography has been ordered as well. Case reviewed with Dr. De Anda of the hospital service will admit the patient to the PCU. Medical Decision Making EKG (independent interpretation): Sinus rhythm with first-degree AV block with PACs, rate 94, no dynamic ST changes Imaging (independent interpretation) of the CT: CT scan of the brain that is unenhanced shows no obvious bleed, there does appear to be a hypodensity present in the left basal ganglia which could be infarct of uncertain age. Please see formal report for CT angiography. Portable chest x-ray demonstrates cardiomegaly with possible mild pulmonary edema, no pleural effusions Medical Decision Making Problems Addressed: Cerebrovascular accident (CVA), unspecified mechanism (HCC-CMS): complicated acute illness or injury Amount and/or Complexity of Data Reviewed Labs: ordered. Radiology: ordered. Risk OTC drugs. Prescription drug management. Decision regarding hospitalization. Final diagnoses: Cerebrovascular accident (CVA), unspecified mechanism (HCC-CMS) Disposition: Admitted Chief complaint: Slurred speech right arm weakness HPI Kip Smith is a 69 y.o. male with untreated hypertension, actively chews tobacco, has a history of CAD per old records who presents to the ED as a stroke alert. Patient states he was in his usual state of health this morning his reports he was able to make her coffee and had normal speech and exhibited no weakness, patient states he started feeling somewhat poorly last night. At approximately 8:00 this morning when he was on the phone with his daughter she noted slurring ofspeech and difficulty talking, and patient was also experiencing weakness of the right arm. His daughter notified 911 and also called her mother while she was at work. Patient states this morning he did not experience any sudden onset headache, palpitations, chest pain or shortness of breath. He does get swelling of his lower extremities which she states is not new. Per his he has not been successful in getting on an antihypertension regimen without side effects. EMS arrived found the patient to have resolved symptoms. With a normal blood sugar. En route paramedics noted the patient started to develop some right upper extremity weakness with some mild slurring of speech. Upon arrival here patient had mild pronator drift but no other abnormalities and was sent for stroke evaluation per protocol History was provided by: Patient, earlier history corroborated by his and daughter. EMS reportwas also obtained verbally at time of arrival Records reviewed include: Vital signs, nurses notes Patient's pertinent PMH, FH, SH were reviewed and edited as necessary. Nursing notes reviewed. A medical screening exam was performed. Physical Exam BP (!) 181/101 (BP Patient Position: Semi fowlers) Temp 36.6 ??C (97.8 ??F) (Oral) Resp 23 Ht182.9 cm (72) Wt (!) 126.6 kg (279 lb 3.2 oz) SpO2 100% BMI 37.87 kg/m?? Physical Exam Nurses notes and vital signs were reviewed The medical screening exam was performed GEN: Well-appearing, awake and alert, nontoxic HEENT: NC/AT, EOMI, external ears normal, nares clear, OP with MMM Neck: Supple, nontender full range of motion Chest: NT, CTA B CAR:RRR, no murmur ABD: Nondistended, soft, NT Back: No CVAT EXT: no C/C/1+ bilateral ankle edema, no calf tenderness Neuro:A/O x 3, no focal weakness, moves all extremities x4, Please see NIHSS below CLINICAL CALCULATOR RESULTS NIH Stroke Scale Patient Last Known Well - Date: 03/01/24 (03/01/24 1022 : Mira Pat RN) Patient Last Known Well - Time: 804 (03/01/24 1022 : Mira Pat RN) 1A. Level of Consciousness: Alert, Keenly responsive (03/01/24 1028 : Mira Pat RN) 1B. Ask Month and Age: Answers both questions correctly (03/01/24 1028 : Mira Pat RN) 1C. Blink Eyes & Squeeze Hands: Performs both tasks correctly (03/01/24 1028 : Mira Pat RN) 2. Best Gaze: Normal (03/01/24 1028 : Mira Pat RN) 3. Visual: No visual loss (03/01/24 1028 : Mira Pat RN) 4. Facial Palsy: Normal symmetry (03/01/24 1028 : Mira Pat RN) 5A. Motor - Left Arm: No drift for 10 seconds (03/01/24 1028 : Mira Pat RN) 5B. Motor - Right Arm: No drift for 10 seconds (03/01/24 1028 : Mira Pat RN) 6A. Motor - Left Leg: No drift for 5 seconds (03/01/24 1028 : Mira Pat RN) 6B. Motor - Right Leg: No drift for 5 seconds (03/01/24 1028 : Mira Pat RN) 7. Limb Ataxia: Ataxia in one limb (03/01/24 1028 : Mira Pat RN) 8. Sensory Loss: Normal, no sensory loss (03/01/24 1028 : Mira Pat RN) 9. Best Language: Normal, no aphasia (03/01/24 1039 : Mira Pat RN) 10. Dysarthria: Normal (03/01/24 1039 : Mira Pat RN) 11. Extinction And Inattention: No abnormality (03/01/24 1039 : Mira Pat, RN) NIH Stroke Scale: 0 (03/01/24 1039 : Mira Pat, SILVIA) Procedures Critical Care Performed by: Benny Ferreira MD Authorized by: Benny Ferreira MD Critical care provider statement: Critical care time (minutes): 60. 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 Critical care was time spent personally by me on the following activities: Discussions with consultants, evaluation of patient's response to treatment, examination of patient, obtaining history from patient or surrogate, ordering and performing treatments and interventions, ordering and review of laboratory studies, ordering and review of radiographic studies, pulse oximetry and re- evaluation of patient's condition I assumed direction of critical care for this patient from another provider in my specialty: no Care discussed with: admitting provider Comments: Patient with acute CVA, requiring corroboration of history from family members who are present, EMS, full telestroke consultation with [facility] stroke neurology was also obtained and treatment plan was discussed with them and then carried out documented in this encounter Miscellaneous Notes * Plan of Care - Hanna Mann RN - 03/04/2024 1130 EDT Problem: Safety: Goal: Will remain free from falls Outcome: Completed Goal: Will remain free from infection Outcome: Completed Goal: Ability to remain free from injury will improve Outcome: Completed Problem: Pain: Goal: Pain level will decrease Outcome: Completed Problem: Infection: Goal: Signs and symptoms of infection will decrease Outcome: Completed Problem: Cognitive/ Neuro: Goal: Will regain or maintain usual level of consciousness Outcome: Completed Goal: Mental status will return to base line Outcome: Completed Goal: Ability to maintain clinical measurements within normal limits will improve Outcome: Completed Problem: Cardiac: Goal: Ability to maintain clinical measurements within defined limits will improve Outcome: Completed Goal: Risk of venous thrombosis will decrease Outcome: Completed Problem: Respiratory: Goal: Ability to maintain a clear airway will improve Outcome: Completed Goal: Ability to maintain adequate ventilation will improve Outcome: Completed Problem: Bowel/Gastric: Goal: Gastrointestinal status for postoperative course will improve Outcome: Completed Goal: Occurrences of nausea will decrease Outcome: Completed Goal: Occurrences of diarrhea will decrease Outcome: Completed Goal: Ability to achieve a regular elimination pattern will improve Outcome: Completed Goal: Occurrences of constipation will decrease Outcome: Completed Problem: Nutritional: Goal: Ability to attain and maintain optimal nutritional status will improve Outcome: Completed Goal: Ability to chew and swallow food without choking will improve Outcome: Completed Problem: Urinary Elimination: Goal: Ability to reestablish a normal urinary elimination pattern will improve Outcome: Completed Goal: Ability to recognize the need to void and respond appropriately will improve Outcome: Completed Goal: Will remain free from infection Outcome: Completed Problem: Activity: Goal: Ability to avoid complications of mobility impairment will improve Outcome: Completed Goal: Ability to tolerate increased activity will improve Outcome: Completed Problem: Physical Regulation: Goal: Complications related to the disease process, condition or treatment will be avoided or minimized Outcome: Completed Goal: Diagnostic test results will improve Outcome: Completed Problem: Coping: Goal: Patient's and family's ability to cope will improve Outcome: Completed Goal: Level of anxiety will decrease Outcome: Completed Goal: Ability to develop realistic plans in adapting to changes will improve Outcome: Completed Problem: Role Relationship: Goal: Ability to express an understanding of role expectations in relation to illness will improve Outcome: Completed Goal: Ability to interact with others will improve Outcome: Completed Problem: High Fall Risk: Goal: Patient will Remain Free of Falls due to Altered Elimination Outcome: Completed Problem: High Fall Risk: Goal: Patient Will Remain Free from Fall-Related Injury Outcome: Completed Problem: High Fall Risk: Goal: Patient will Remain Free of Falls due to Med. Side Effects Outcome: Completed Problem: Daily Care Plan Goals Goal: Care Plan Documentation Outcome: Completed Problem: Sensory: Goal: Ability to compensate for vision loss will be supported Outcome: Completed Problem: High Fall Risk: Goal: Patient will Remain Free of Falls due to Dizziness/Vertigo Outcome: Completed * Plan of Care - Keily Barclay RN - 03/04/2024 0645 EDT Images from the original note were not included. Pt is A+OX3. Able to make his needs known. Call naranjo is within reach. Pt denies headache, SOB. VSS.C/o right wrist pain, scheduled voltaren and prn tylenol with +effect. Meds given per OCT. Shift assessment completed (see flowsheets). Bed alarm on for safety. Safety maintained. Problem: Safety: Goal: Will remain free from falls Outcome: Ongoing Problem: Pain: Goal: Pain level will decrease Outcome: Ongoing Problem: Cognitive/ Neuro: Goal: Ability to maintain clinical measurements within normal limits will improve Outcome: Ongoing * Plan of Care - Hanna Mann RN - 03/03/2024 1637 EDT Problem: Safety: Goal: Will remain free from falls Outcome: Ongoing Goal: Will remain free from infection Outcome: Ongoing Goal: Ability to remain free from injury will improve Outcome: Ongoing Problem: Pain: Goal: Pain level will decrease Outcome: Ongoing Problem: Infection: Goal: Signs and symptoms of infection will decrease Outcome: Ongoing Problem: Cognitive/ Neuro: Goal: Will regain or maintain usual level of consciousness Outcome: Ongoing Goal: Mental status will return to base line Outcome: Ongoing Goal: Ability to maintain clinical measurements within normal limits will improve Outcome: Ongoing Problem: Cardiac: Goal: Ability to maintain clinical measurements within defined limits will improve Outcome: Ongoing Goal: Risk of venous thrombosis will decrease Outcome: Ongoing Problem: Respiratory: Goal: Ability to maintain a clear airway will improve Outcome: Ongoing Goal: Ability to maintain adequate ventilation will improve Outcome: Ongoing Problem: Bowel/Gastric: Goal: Gastrointestinal status for postoperative course will improve Outcome: Ongoing Goal: Occurrences of nausea will decrease Outcome: Ongoing Goal: Occurrences of diarrhea will decrease Outcome: Ongoing Goal: Ability to achieve a regular elimination pattern will improve Outcome: Ongoing Goal: Occurrences of constipation will decrease Outcome: Ongoing Problem: Nutritional: Goal: Ability to attain and maintain optimal nutritional status will improve Outcome: Ongoing Goal: Ability to chew and swallow food without choking will improve Outcome: Ongoing Problem: Urinary Elimination: Goal: Ability to reestablish a normal urinary elimination pattern will improve Outcome: Ongoing Goal: Ability to recognize the need to void and respond appropriately will improve Outcome: Ongoing Goal: Will remain free from infection Outcome: Ongoing Problem: Activity: Goal: Ability to avoid complications of mobility impairment will improve Outcome: Ongoing Goal: Ability to tolerate increased activity will improve Outcome: Ongoing Problem: Physical Regulation: Goal: Complications related to the disease process, condition or treatment will be avoided or minimized Outcome: Ongoing Goal: Diagnostic test results will improve Outcome: Ongoing Problem: Coping: Goal: Patient's and family's ability to cope will improve Outcome: Ongoing Goal: Level of anxiety will decrease Outcome: Ongoing Goal: Ability to develop realistic plans in adapting to changes will improve Outcome: Ongoing Problem: Role Relationship: Goal: Ability to express an understanding of role expectations in relation to illness will improve Outcome: Ongoing Goal: Ability to interact with others will improve Outcome: Ongoing Problem: High Fall Risk: Goal: Patient will Remain Free of Falls due to Altered Elimination Outcome: Ongoing Problem: High Fall Risk: Goal: Patient Will Remain Free from Fall-Related Injury Outcome: Ongoing Problem: High Fall Risk: Goal: Patient will Remain Free of Falls due to Med. Side Effects Outcome: Ongoing Problem: Daily Care Plan Goals Goal: Care Plan Documentation Outcome: Ongoing Problem: Sensory: Goal: Ability to compensate for vision loss will be supported Outcome: Ongoing * Plan of Care - Keily Barclay RN - 03/03/2024 0436 EDT Pt is A+OX3. Able to make his needs known. Call naranjo is within reach. BP elevated, MD aware and stated unless pt SBP above 205, or DBP above 110 no interventions at this time. Pt has maintained belowthese parameters throughout this shift. Pt denies headache, SOB. C/o right wrist pain, heat pack with +effect. Meds given per OCT. Shift assessment completed (see flowsheets). Bed alarm on for safety. Safety maintained. Problem: Pain: Goal: Pain level will decrease Outcome: Ongoing Problem: Cognitive/ Neuro: Goal: Mental status will return to base line Outcome: Ongoing Problem: Cardiac: Goal: Ability to maintain clinical measurements within defined limits will improve Outcome: Ongoing * Plan of Care - Lindsey Trimble RN - 03/02/2024 1147 EDT Problem: Safety: Goal: Will remain free from falls Outcome: Ongoing Problem: Cognitive/ Neuro: Goal: Will regain or maintain usual level of consciousness Outcome: Ongoing Problem: Cardiac: Goal: Ability to maintain clinical measurements within defined limits will improve Outcome: Ongoing Problem: Pain: Goal: Pain level will decrease Outcome: Met This Shift Data: Assumed care of this patient at 0700. Patient is A/Ox4, independent with ADLs, admitted yesterday with dysarthria and mild right sided weakness at home. Patient not a candidate for TPA or TNK per [facility] Neurology. Permissive hypertension with systolic between 180-220 ordered overnight. NSR with 1st degree heart block on tele. Action: Education provided on new medications, patient walked with PT in halls, NIHSS 0, BP trending down after starting ibersartan. Assessment as documented, medication given per OCT. Response: Safety maintained, patient downgraded to tele status, remains independent with ADLs, continent x2. LINDSEY TRIMBLE RN 03/02/2024 11:48 * Plan of Care - Marlon Leon - 03/02/2024 0923 EDT 03/02/24 0923 Medicare IM Notice IM notice status Patient received notification verbally and in writing while in hospital. IM notice given on admission? Yes * Plan of Care - Renee Garcia RN - 03/02/2024 0447 EDT Assumed care at 1900 03/01, Pt with no apparent deficits post stroke. Q4 neuro checks completed withno abnormal findings. Pt denied pain overnight. Pt voiding, drinking fluids, and eating. Pt reportsfeeling well in morning, but nicardipine drip was resumed as pt BP continued to rise agin throughout the night reaching 217/122 (154). Initiated at 5mg/hr. * Plan of Care - Chula Saldana RN - 03/01/2024 1826 EDT D: Assumed care of patient at 1530. A&Ox4. S/p acute ischemic stroke with minimal deficits. RUEand hand weakness. Transient dysarthria now resolved. Hypertensive with SBP in 210s. Permissive HTNallowed with SBP from 180-220. Nicardipine gtt ordered and hung at bedside to help maintain the patient within these parameters. Was running but has since been turned off. A: Admission assessment completed and four eyes skin assessment completed by self and orientee Lindsey Trimble, RN. See other note. Patient independent with mobility. Medications given as ordered. Aided patient with ordering meals. Q4 Vitals and stroke checks completed. Stroke education packet given to patient. R: Resting in bed watching TV. Family and patient updated. Oriented to unit, call naranjo in reach, rings appropriately. 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 Services Routine Cerebrovascular accident (CVA), unspecified mechanism (HCC-CMS) 03/11/2024 16:08 EDT Scheduled Orders Name Type Priority Associated Diagnoses Orde r Schedule 30 DAY FIBER ANALYST Cardiac Services Routine Cerebrovascular accident (CVA), unspecified mechanism (HCC-CMS) Expected: 03/04/2024 (Approximate), Expires: 03/04/2026 CT HEAD WO CONTRAST Imaging Routine Mass in region of sella turcica present on magnetic resonance imaging Expected: 04/04/2024 (Approximate), Expires: 09/04/2025 Scheduled Referrals Name Type Priority Associated Diagnoses Order Schedule AMB CONS/FOLLOW UP STROKE Outpatient Referral Routine/Next Available Cerebrovascular accident (CVA), unspecified mechanism (HCC-CMS) Mass in region of sella turcica present on magnetic resonance imaging Expected: 04/04/2024 (Approximate), Expires: 03/04/2025 AMB CONS/FOLLOW UP CARDIOLOGY Outpatient Referral Routine/Next Available Resistant hypertension Expected: 04/04/2024 (Approximate), Expires: 03/04/2025 AMB CONS/FOLLOW UP VASCULAR SURGERY Outpatient Referral Routine/Next Available Cerebrovascular accident (CVA), unspecified mechanism (HCC-CMS) Stenosis of carotid artery, unspecified laterality Expected: 06/04/2024 (Approximate), Expires: 03/04/2025 AMB CONS/FOLLOW UP EXTERNAL SERVICES Outpatient Referral Routine/Next Available Cerebrovascular accident (CVA), unspecified mechanism (HCC-CMS) Stage 3a chronic kidney disease (HCC-CMS) [N18.31] Mass in region of sella turcica present on magnetic resonance imaging Expected: 03/11/2024 (Approximate), Expires: 03/04/2025 documented as of this encounter Procedures Procedure [...] METABOLIC PANEL (BMP) Routine 03/03/2024 6:30 EDT ACTH, PLASMA Routine 03/02/2024 6:45 EDT PROLACTIN Routine 03/02/2024 6:45 EDT IGF-1, LC/MS, S Routine 03/02/2024 6:45 EDT COMPLETE BLOOD COUNT Routine 03/02/2024 6:45 EDT CORTISOL Routine 03/02/2024 6:45 EDT LIPID PROFILE (INCLUDES CHOLESTEROL, TRIGLYCERIDES, HDL, LDL) Routine 03/02/2024 6:45 EDT COMPREHENSIVE METABOLIC PANEL (CMP) Routine 03/02/2024 6:45 EDT ECG REPORT - SCANNED 03/01/2024 16:45 EDT MR HEAD WO CONTRAST STAT 03/01/2024 1 5:18 EDT TRANSTHORACIC ECHO (TTE) COMPLETE Routine 03/01/2024 14:03 EDT XR CHEST PORTABLE 1 VIEW STAT 03/01/2024 11:52 EDT POCT GLUCOSE, INTERFACED STAT 03/01/2024 11:25 EDT EKG 12-LEAD STAT 03/01/2024 10:10 EDT UA WITH REFLEX SEDIMENT (CULTURE IF POS) STAT 03/01/2024 10:08 EDT THYROID CASCADE Add-On 03/01/2024 10:08 EDT TROPONIN I STAT 03/01/2024 10:08 EDT PTT STAT 03/01/2024 10:08 EDT PROTIME STAT 03/01/2024 10:08 EDT COMPLETE BLOOD COUNT AND DIFFERENTIAL STAT 03/01/2024 10:08 EDT T4 FREE Today 03/01/2024 10:08 EDT MAGNESIUM STAT 03/01/2024 10:08 EDT HEMOGLOBIN A1C Add-On 03/01/2024 10:08 EDT ETHANOL, BLOOD STAT 03/01/2024 10:08 EDT COMPREHENSIVE METABOLIC PANEL (CMP) STAT 03/01/2024 10:[address] ANGIO HEAD NECK STAT 03/01/2024 10 :[address] HEAD WO CONTRAST STAT 03/01/2024 1 0:02 EDT ED CRITICAL CARE Routine 03/01/2024 9:49 EDT documented in this encounter Results * ECG REPORT - SCANNED (03/08/2024 8:01 EDT) 03/08/2024 8:01 EDT Scan 2 [employer] PROCEDURE/MINOR ALIYAH GICAL ORDERABLES * US RENAL [...] UA CASCADE TO CULTURE (03/03/2024 20:37 EDT) Color UA Yellow Colorless, Yellow 03/03/2024 20:[address] [facility] Clarity UA Clear Clear 03/03/2024 20:[address] [facility] Glucose UA Negative Negative mg/dL 03/03/2024 20:[address] [facility] Bilirubin UA Negative Negative 03/03/2024 20:44 [facility] Ketones UA Negative Negative 03/03/2024 20:44 [facility] Specific [place], Urine 1.010 1.001 - 1.030 03/03/2024 20:44 [facility] Blood UA Negative Negative 03/03/2024 20:44 [facility] pH, UA 6.5 <8.5 03/03/2024 20:44 [facility] Protein UA Negative Negative mg/dL 03/03/2024 20:44 [facility] Urobilinogen UA 0.2 0.2-1.0 mg/dL mg/dL 03/03/2024 20:44 [facility] Nitrite UA Negative Negative 03/03/2024 20:44 [facility] Leukocyte Esterase UA Negative Negative 03/03/2024 20:44 [facility] Urine URINE SPECIMEN OBTAINED BY CLEAN CATCH PROCEDURE / Unknown Urine Collect / Unknown 03/03/2024 20:37 EDT 03/03/2024 20:40 EDT Delphine Beltrán PA-C URINALYSIS ORDERABLE S [facility] [address] [place] [address] * ECG REPORT - SCANNED (03/03/2024 13:40 EDT) 03/03/2024 13:4 0 EDT Scan 2 [employer] PROCEDURE/MINOR ALIYAH GICAL ORDERABLES * XR WRIST RIGHT 2 VIEWS (03/03/2024 10:32 EDT) Anatomical Region Laterality Modality Upper Extremities Right Computed Radio graphy 03/03/2024 10:5 0 EDT Impressions 03/03/2024 10:50 EDT 1. ??No acute fracture identified. 2. ??Evidence of old wrist trauma, as detailed above. 3. ??Moderate wrist arthrosis. [id number] Narrative 03/03/2024 10:50 EDT XR WRIST RIGHT [...] calcified atherosclerotic disease noted. Resulting Agency Comment [id number] Procedure Note Lobo Siegel MD - 03/03/2024 [...] as detailed above. 3. Moderate wrist arthrosis. [id number] Delphine Beltrán PA-C IMG DIAGNOSTIC IMAGI NG ORDERABLES * [facility] (03/03/[facility]24 6:30 EDT) Hold Hold 03/03/2024 7:[address] [facility] Blood VENOUS BLOOD / Unknown Venipuncture / Unknown 03/03/2024 6:30 EDT 03/03/2024 6:44 EDT Branden D Clouser DO LAB INFO SERVICE AND SUPPORT & PHONE RESULT Performing Organization Address City/[facility]/ZIP Co de Phone Number [facility] [address] [place] [address] * (ABNORMAL) BASIC METABOLIC PANEL (BMP) (03/03/2024 6:30 EDT) Sodium 136 136 - 145 mmol/L 03/03/2024 7:10 [facility] Potassium 4.6 3.5 - 5.0 mmol/L 03/03/2024 7:10 [facility] Chloride 101 96 - 110 mmol/L 03/03/2024 7:10 [facility] CO2 Total 26 22 - 32 mmol/L 03/03/2024 7:10 [facility] Anion Gap 9 5 - 14 mmol/L 03/03/2024 7:10 [facility] Glucose 98 70 - 99 mg/dl 03/03/2024 7:10 [facility] Calcium 9.1 8.5 - 10.5 mg/dL 03/03/2024 7:10 [facility] BUN 25 10 - 26 mg/dL 03/03/2024 7:10 [facility] Creatinine 1.53(H) 0.66 - 1.25 mg/dL 03/03/2024 7:10 [facility] eGFR 48(L) >60 mL/min/1.73 m2 03/03/2024 7:10 [facility] Blood VENOUS BLOOD / Unknown Venipuncture / Unknown 03/03/2024 6:30 EDT 03/03/2024 6:42 EDT Branden Galaviz DO CHEMISTRY & BLOOD GA S ORDERABLES [facility] [address] [place] [address] * PROLACTIN (03/02/2024 6:45 EDT) Prolactin 7.9 2.1 - 17.7 ng/mL 03/02/2024 13:55 EDT [facility] Blood VENOUS BLOOD / Unknown Venipuncture / Unknown 03/02/2024 6:45 EDT 03/02/2024 6:56 EDT Vik De Anda MD CHEMISTRY & BLOOD GA S ORDERABLES Performing Organization Address City/[facility]/ZIP Co de Phone Number [facility] [address] [place] [address] * IGF-1, LC/MS, S (03/02/2024 6:45 EDT) [facility] IGF-1, LC/MS, S 70 32 - 200 ng/mL 03/09/2024 17:[address] [facility] Z-score -0.84 -2.0 - 2.0 SD 03/09/2024 17:[address] [facility] Comment: ADDITIONAL INFORMATION This test was developed and its performance characteristics determined by [facility] in a manner consistent with CLIA requirements. This test has not been cleared or approved by the U.S. Food and Drug Administration. Test Performed by: [facility] [place] [address] Spinner Hand: Nhan Mistry Ph.D.; CLIA# [id number] Blood VENOUS BLOOD / Unknown Venipuncture / Unknown 03/02/2024 6:45 EDT 03/02/2024 6:56 EDT Vik De Anda MD CHEMISTRY & BLOOD GA S ORDERABLES Performing Organization Address City/[facility]/ZIP Co de Phone Number [facility] [address] [place] [address] * ACTH, PLASMA (03/02/2024 6:45 EDT) Adrenocorticotropic Hormone, P 25 pg/mL 03/03/2024 17:[address] [facility] Comment: REFERENCE VALUE 7.2-63 (a.m. collection) Test Performed by: [facility] [address] [place] [address] Spinner Hand: Nhan Mistry Ph.D.; CLIA# [id number] Blood VENOUS BLOOD / Unknown Venipuncture / Unknown 03/02/2024 6:45 EDT 03/02/2024 6:54 EDT Vik De Anda MD CHEMISTRY & BLOOD GA S ORDERABLES Performing Organization Address City/[facility] Co de Phone Number [facility] [address] [place] [address] * CORTISOL (03/02/2024 6:45 EDT) Pathologist [facility] Cortisol 10 See Note ug/dL 03/02/2024 8:[address] [facility] Comment: NOTE: Reference Ranges [...] MD CHEMISTRY & BLOOD GA S ORDERABLES [facility] [address] [place] [address] * (ABNORMAL) COMPLETE BLOOD COUNT (03/02/2024 6:45 EDT) WBC 8.33 4.00 - 10.40 K/cmm 03/02/2024 7:[address] [facility] RBC 4.32(L) 4.36 - 5.78 M/cmm 03/02/2024 7:06 [facility] Hemoglobin 13.6(L) 13.8 - 17.3 g/dL 03/02/2024 7:06 [facility] HCT 41.6 39.5 - 50.2 % 03/02/2024 7:06 [facility] MCV 96(H) 81 - 95 fL 03/02/2024 7:06 [facility] MCH 31.5 27.6 - 33.0 pg 03/02/2024 7:06 [facility] MCHC 32.7(L) 32.8 - 36.4 g/dL 03/02/2024 7:06 [facility] RDW-CV 13.2 <14.2 % 03/02/2024 7:06 [facility] RDW-SD 47.0(H) <46.0 fl 03/02/2024 7:06 [facility] PLT 220 141 - 377 K/cmm 03/02/2024 7:06 [facility] MPV 10.6 9.5 - 12.7 fL 03/02/2024 7:06 [facility] Blood VENOUS BLOOD / Unknown Venipuncture / Unknown 03/02/2024 6:45 EDT 03/02/2024 6:56 EDT Vik De Anda MD HEMATOLOGY & PF4 ORD ERABLES [facility] [address] [place] [address] * (ABNORMAL) COMPREHENSIVE METABOLIC PANEL (CMP) (03/02/2024 6:45 EDT) Sodium 136 136 - 145 mmol/L 03/02/2024 7:34 [facility] Potassium 4.3 3.5 - 5.0 mmol/L 03/02/2024 7:34 [facility] Chloride 101 96 - 110 mmol/L 03/02/2024 7:34 [facility] CO2 Total 26 22 - 32 mmol/L 03/02/2024 7:34 [facility] Glucose 114(H) 70 - 99 mg/dl 03/02/2024 7:34 [facility] BUN 21 10 - 26 mg/dL 03/02/2024 7:34 [facility] Creatinine 1.49(H) 0.66 - 1.25 mg/dL 03/02/2024 7:34 [facility] eGFR 50(L) >60 mL/min/1.7 3m2 03/02/2024 7:34 [facility] Total Protein 6.8 6.3 - 8.2 g/dL 03/02/2024 7:34 [facility] Albumin 3.9 3.4 - 4.9 g/dL 03/02/2024 7:34 [facility] Alkaline Phosphatase 66 38 - 126 U/L 03/02/2024 7:34 [facility] AST 17 15 - 46 U/L 03/02/2024 7:34 [facility] ALT 13 <50 U/L 03/02/2024 7:34 [facility] Bilirubin, Total 0.6 <1.4 mg/dL 03/02/20 7:34 [facility] Calcium 9.0 8.5 - 10.5 mg/dL 03/02/2024 7:34 [facility] Albumin/Globulin Ratio 1.3 1.0 - 2.5 03/02/2024 7:34 [facility] Anion Gap 9 5 - 14 mmol/L 03/02/2024 7:34 [facility] Blood VENOUS BLOOD / Unknown Venipuncture / Unknown 03/02/2024 6:45 EDT 03/02/2024 6:55 EDT Vik De Anda MD CHEMISTRY & BLOOD GA S ORDERABLES Performing Organization Address City/State/[facility] Co de Phone Number [facility] [address] [place] [address] * (ABNORMAL) LIPID PROFILE (INCLUDES CHOLESTEROL, TRIGLYCERIDES, HDL, LDL) (03/02/2024 6:45 EDT) Cholesterol 205(H) <200 mg/dL 03/02/2024 7:34 [facility] Comment:Note that therapeuti c goals will differ between patients based on cardiac risk factors and current medical therapy. HDL 46 >=40 mg/dl 03/02/2024 7:34 [facility] Comment:Note that therapeuti c goals will differ between patients based on cardiac risk factors and current medical therapy. LDL, Calculated 136 <160 mg/dL 7:34 [facility] Comment:Note that therapeuti c goals will differ between patients based on cardiac risk factors and current medical therapy. Triglyceride 117 <=150 mg/dL 03/02/2024 7:34 [facility] Comment:Note that therapeuti c goals will differ between patients based on cardiac risk factors and current medical therapy. Chol/HDL Ratio 4.5 See Note 03/02/2024 7:34 [facility] Comment: NOTE: Desirable Ratio = <4.1 Patient At Risk Ratio = >5.0(Males) ?>6.0(Females) Non HDL Cholesterol 159 <160 mg/dL 03/02/2024 7:34 [facility] Comment:Note that therapeuti c goals will differ between patients based on cardiac risk factors and current medical therapy. Blood VENOUS BLOOD / Unknown Venipuncture / Unknown 03/02/2024 6:45 EDT 03/02/2024 6:55 EDT Vik De Anda MD CHEMISTRY & BLOOD GA S ORDERABLES Performing Organization Address [facility]/ZIP Co de Phone Number [facility] [address] [place] [address] * ECG REPORT - SCANNED (03/01/2024 16:45 EDT) 03/01/2024 16:4 5 EDT Scan 2 [employer] PROCEDURE/MINOR ALIYAH GICAL ORDERABLES * MR HEAD [...] protocol CT within 1 month is recommended. [id number] Narrative 03/01/2024 15:35 EDT INDICATION: Possible lacunar [...] Likely benign. Correlate clinically. Resulting Agency Comment [id number] Procedure Note William Barrios MD - 03/02/2024 [...] pituitary protocol CT within 1 monthis recommended. [id number] Benny Ferreira MD IMG MRI ORDERABL ES [...] ED, PLAX 5.3 3.5 - 6.0 cm [facility] POINT OF CARE LV E/e', lateral 5.4 [facility] POINT OF CARE LA volume, ES, BP 96.0 ml UV N POINT OF CARE LA Atrial Length A2C 5.7 cm [facility] POINT OF CARE LA volumes, ES, A4C 100.0 ml [facility] POINT OF CARE Pulmonic valve mean velocity, S 1 cm/s [facility] POINT OF CARE LA ID/bsa, A-P 1.6 cm/m2 [facility] POINT OF CARE LA ID, A-P, ES 4.2 cm [facility] POINT OF CARE LV end-diastolic volume, 1-p A4C 190 ml [facility] POINT OF CARE LV end diastolic volume 1-p A2C 217 ml [facility] POINT OF CARE Stroke index (SV/bsa) LVOT DP 26.0 ml/m2 [facility] POINT OF CARE LA/aortic root ratio 1.24 [facility] POINT OF CARE LV E/e', lateral 16.8 [facility] POINT OF CARE LV E/e', medial 20.5 [facility] N POINT OF CARE LV e', lateral 5.40 cm/s [facility] POINT OF CARE LV e', medial 4.50 cm/s [facility] POINT OF CARE LVOT mean velocity, S 0.7 m/s [facility] POINT OF CARE LV E/e', average 19 [facility] POINT OF CARE Mitral E/A ratio, peak 1.60 [facility] POINT OF CARE Heart Rate 73.0 bpm [facility] POI NT OF CARE IVS thickness, ED, PLAX 1.1 cm [facility] POINT OF CARE LV PW thickness, ED, PLAX 1.3 0.6 - 1.1 cm [facility] POINT OF CARE Anatomical Region Laterality Modality [...] Images were obtained using cardiac ultrasound machine [employer]-03. Vik De Anda MD CARDIAC ECHO ORDERAB LES * XR CHEST PORTABLE 1 VIEW (03/01/2024 11:52 EDT) Anatomical Region Laterality Modality Computed Radiogr aphy 03/01/2024 12:3 1 EDT Impressions 03/01/2024 12:31 EDT Cardiomegaly and possible hazy airspace opacities, raising the possibility of mild pulmonary edema. Please note, assessment of the lungs is limited due to patient body habitus. [id number] Narrative 03/01/2024 12:31 EDT XR CHEST PORTABLE 1 VIEW ?? Signs and Symptoms/Comments: ??stroke; Comparisons: None. FINDINGS: Chest: A single upright AP view was performed. Lungs: Apparent bilateral hazy airspace opacities, however this could be incidental to patient body habitus. Pleura: No pneumothorax or pleural effusion identified. Mediastinum: Cardiomegaly. Bones: Unremarkable. Resulting Agency Comment [id number] Procedure Note Lobo Siegel MD - 03/01/2024 [...] lungs is limiteddue to patient body habitus. [id number] Benny Ferreira MD IMG DIAGNOSTIC I MAGING ORDERABLES * (ABNORMAL) POCT GLUCOSE, INTERFACED (03/01/2024 11:25 EDT) Glucose, POC 109(H) 70 - 100 mg/dL 03/01/2024 11:[address] [facility] HN LAB POC COMMENT (GLUCOSE) Test Performed in ED 03/01/2024 11:[address] [facility] Blood CAPILLARY BLOOD / Unknown 03/01/2024 11:25 EDT 03/01/2024 11:26 EDT Benny Ferreira MD POINT OF CARE TE ST ORDERABLES [facility] [address] [place] [address] * EKG 12-LEAD (03/01/2024 10:10 EDT) 03/01/2024 10:1 0 EDT Narrative [facility] - 03/01/2024 16:38 EDT ? [facility] ? Test Date: ?2024-03-01 Pat Name: ? KIP SMITH ?Department: ? Room: ? Gender: ? Male ? Hot Man: ?? HERON : ?1955 ? Requested By: RADHA WHITFIELD Order Number: [id number] ? Tony BROWN: ?? SAMARIA DORSEY MD ? Measurements Intervals ?[place] ? Rate: ? 94 ? P: ?63 KS: ? 224 ?QRS: ?47 QRSD: ? 96 [...] Procedure Note Samaria Dorsey MD - 03/01/2024 [facility]: 2024-03-01 Pat Name: KIP SMITH Department: Room: Gender: Male Hot Man: HERON : 1955 Requested By: RADHA KELLER Order Number: [id number] Reading MD: SAMARIA DORSEY MD Measurements Intervals [place] Rate: 94 P: 63 KS: 224 QRS: 47 QRSD: 96 T: 61 [...] Benny Ferreira MD CARDIAC ECG ORDE [place] [facility] * T4 FREE (03/01/2024 10:08 EDT) T4, Free 1.1 0.8 - 2.2 ng/dL 03/01/2024 22:[address] [facility] Blood VENOUS BLOOD / Unknown Venipuncture / Unknown 03/01/2024 10:08 EDT 03/01/2024 10:52 EDT Vik De Anda MD CHEMISTRY & BLOOD GA S ORDERABLES Performing Organization Address [facility] Co de Phone Number [facility] [address] [place] [address] * (ABNORMAL) THYROID CASCADE (03/01/2024 10:08 EDT) TSH 4.69(H) 0.47 - 4.68 mIU/L 03/01/2024 20:[address] [facility] Blood VENOUS BLOOD / Unknown Venipuncture / Unknown 03/01/2024 10:08 EDT 03/01/2024 10:[address] [facility] - 03/01/2024 20:57 EDT NOTE: The results of this assay can be falsely lowered due to the consumption of Biotin. Vik De Anda MD CHEMISTRY & BLOOD GA S ORDERABLES Performing Organization Address [facility]/ZIP Co de Phone Number [facility] [address] [place], [place] [id number] * (ABNORMAL) HEMOGLOBIN A1C (03/01/2024 10:08 EDT) Hemoglobin A1c 5.8(H) <5.7 % 03/02/2024 13:36 EDT [facility] Comment: Glycemic Status References: Normal: ??<5.7% Pre-Diabetes: ??5.7% - 6.4% Diagnostic of Diabetes: ??> or = 6.5% (if confirmed) Est Avg Glucose 120 mg/dL 13:36 EDT [facility] Comment:The eAG represents t he A1c result expressed as average glucose in mg/dL. Blood VENOUS BLOOD / Unknown Venipuncture / Unknown 03/01/2024 10:08 EDT 03/01/2024 10:52 EDT Vik De Anda MD CHEMISTRY & BLOOD GA S ORDERABLES [facility] [address] [place] [address] * UA CASCADE TO CULTURE (03/01/2024 10:08 EDT) Color UA Yellow Colorless, Yellow 03/01/2024 10:54 [facility] Clarity UA Clear Clear 03/01/2024 10:54 [facility] Glucose UA Negative Negative mg/dL 03/01/2024 10:54 [facility] Bilirubin UA Negative Negative 03/01/2024 10:54 [facility] Ketones UA Negative Negative 03/01/2024 10:54 [facility] Specific [place], Urine 1.010 1.001 - 1.030 03/01/2024 10:54 [facility] Blood UA Negative Negative 03/01/2024 10:54 [facility] pH, UA 7.5 <8.5 03/01/2024 10:54 [facility] Protein UA Negative Negative mg/dL 03/01/2024 10:54 [facility] Urobilinogen UA 0.2 0.2-1.0 mg/dL mg/dL 03/01/2024 10:[address] [facility] Nitrite UA Negative Negative 03/01/2024 10:[address] [facility] Leukocyte Esterase UA Negative Negative 03/01/2024 10:[address] [facility] Urine URINE SPECIMEN OBTAINED BY CLEAN CATCH PROCEDURE / Unknown Urine Collect / Unknown 03/01/2024 10:08 EDT 03/01/2024 10:51 EDT Benny Ferreira MD URINALYSIS ORDER DANIELITO Performing Organization Address City/[facility]/ZIP Co de Phone Number [facility] [address] [place] [address] * MAGNESIUM (03/01/2024 10:08 EDT) Pathologist [facility] Magnesium 1.9 1.7 - 2.8 mg/dL 03/01/2024 11:[address] [facility] Blood VENOUS BLOOD / Unknown Venipuncture / Unknown 03/01/2024 10:08 EDT 03/01/2024 10:52 EDT Benny Ferreira MD CHEMISTRY & BLOO D GAS ORDERABLES Performing Organization Address [facility]/ZIP Co de Phone Number [facility] [address] [place] [address] * TROPONIN I (03/01/2024 10:08 EDT) Troponin I (ng/mL) <0.034 <0.034 ng/mL 03/01/2024 11:[address] [facility] Blood VENOUS BLOOD / Unknown Venipuncture / Unknown 03/01/2024 10:08 EDT 03/01/2024 10:[address] [facility] - 03/01/2024 11:23 EDT The results of this assay can be falsely lowered due to the consumption of Biotin. Benny Ferreira MD CHEMISTRY & BLOO D GAS ORDERABLES Performing Organization Address City/[facility]/ZIP Co de Phone Number [facility] [address] [place] [address] * PTT (03/01/2024 10:08 EDT) [facility] PTT 30 26 - 37 secs 03/01/2024 11:[address] [facility] Blood VENOUS BLOOD / Unknown Venipuncture / Unknown 03/01/2024 10:08 EDT 03/01/2024 10:52 EDT Benny Ferreira MD HEMATOLOGY & PF4 ORDERABLES Performing Organization Address [facility] Co de Phone Number [facility] [address] [place] [address] * PROTIME (03/01/2024 10:08 EDT) [facility] I.N.R. 1.1 0.9 - 1.1 Ratio 03/01/2024 11:03 EDT [facility] Pro Time 12.0 9.7 - 12.8 secs 03/01/2024 11:[address] [facility] Blood VENOUS BLOOD / Unknown Venipuncture / Unknown 03/01/2024 10:08 EDT 03/01/2024 10:[address] [facility] - 03/01/2024 11:03 EDT Moderate Intensity Coumadin INR = 2.0-3.0 Adjustments in anticoagulant therapy dose should be based on the INR and NOT on the Protime. Benny Ferreira MD HEMATOLOGY & PF4 ORDERABLES Performing Organization Address [facility] Co de Phone Number [facility] [address] [place] [phone] * ETHANOL, BLOOD (03/01/2024 10:08 EDT) [facility] Ethanol, Blood <10 <10 mg/dL mg/dL 03/01/2024 11:29 [facility] Comment:Healthy, non-drinkin g individuals will have an ethanol concentration of <10 mg/dL. Blood VENOUS BLOOD / Unknown Venipuncture / Unknown 03/01/2024 10:08 EDT 03/01/2024 10:52 [facility] - 03/01/2024 11:29 [facility] legal blood alcohol limit = 80 mg/dl (0.08%) Benny Ferreira MD CHEMISTRY & BLOO D GAS ORDERABLES [facility] [address] [place] [address] * (ABNORMAL) COMPREHENSIVE METABOLIC PANEL (CMP) (03/01/2024 10:08 EDT) Sodium 136 136 - 145 mmol/L 03/01/2024 11:29 [facility] Potassium 4.4 3.5 - 5.0 mmol/L 03/01/2024 11:29 [facility] Chloride 100 96 - 110 mmol/L 03/01/2024 11:29 [facility] CO2 Total 26 22 - 32 mmol/L 03/01/2024 11:29 [facility] Glucose 100(H) 70 - 99 mg/dl 03/01/2024 11:29 [facility] BUN 15 10 - 26 mg/dL 03/01/2024 11:29 [facility] Creatinine 1.42(H) 0.66 - 1.25 mg/dL 03/01/2024 11:29 [facility] eGFR 53(L) >60 mL/min/1.7 3m2 03/01/2024 11:29 [facility] Total Protein 7.2 6.3 - 8.2 g/dL 03/01/2024 11:29 [facility] Albumin 4.0 3.4 - 4.9 g/dL 03/01/2024 11:29 [facility] Alkaline Phosphatase 83 38 - 126 U/L 03/01/2024 11:29 [facility] AST 22 15 - 46 U/L 03/01/2024 11:29 [facility] ALT 15 <50 U/L 03/01/2024 11:29 [facility] Bilirubin, Total 0.7 <1.4 mg/dL 03/01/20 11:29 [facility] Calcium 8.6 8.5 - 10.5 mg/dL 03/01/2024 11:29 [facility] Albumin/Globulin Ratio 1.3 1.0 - 2.5 03/01/2024 11:29 [facility] Anion Gap 10 5 - 14 mmol/L 03/01/2024 11:29 [facility] Blood VENOUS BLOOD / Unknown Venipuncture / Unknown 03/01/2024 10:08 EDT 03/01/2024 10:52 EDT Benny Ferreira MD CHEMISTRY & BLOO D GAS ORDERABLES [facility] [address] [place] [address] * (ABNORMAL) COMPLETE BLOOD COUNT AND DIFFERENTIAL (03/01/2024 10:08 EDT) WBC 9.86 4.00 - 10.40 K/cmm 03/01/2024 10:55 [facility] RBC 4.86 4.36 - 5.78 M/cmm 03/01/2024 10:55 [facility] Hemoglobin 15.8 13.8 - 17.3 g/dL 03/01/2024 10:55 [facility] HCT 47.5 39.5 - 50.2 % 03/01/2024 10:55 [facility] MCV 98(H) 81 - 95 fL 03/01/2024 10:55 [facility] MCH 32.5 27.6 - 33.0 pg 03/01/2024 10:55 [facility] MCHC 33.3 32.8 - 36.4 g/dL 03/01/2024 10:55 [facility] RDW-CV 13.3 <14.2 % 03/01/2024 10:55 [facility] RDW-SD 47.6(H) <46.0 fl 03/01/2024 10:55 [facility] PLT 241 141 - 377 K/cmm 03/01/2024 10:55 [facility] MPV 10.9 9.5 - 12.7 fL 03/01/2024 10:55 [facility] % Neutrophils 39.6 % 03/01/2024 10:55 [facility] % Lymphocytes 48.7 % 03/01/2024 10:55 [facility] % Monocytes 8.2 % 03/01/2024 10:55 [facility] % Eosinophils 2.5 % 03/01/2024 10:55 [facility] % Basophils 0.6 % 03/01/2024 10:55 [facility] % Immature Grans 0.4 <0.9 % 03/01/20 10:55 [facility] Absolute Neutrophils 3.90 2.20 - 8.85 K/cmm 03/01/2024 10:55 [facility] Absolute Lymphocytes 4.80(H) 1.09 - 3.30 K/cmm 03/01/2024 10:55 [facility] Absolute Monocytes 0.81(H) 0.10 - 0.80 K/cmm 03/01/2024 10:55 [facility] Absolute Eosinophils 0.25 0.03 - 0.61 K/cmm 03/01/2024 10:55 [facility] ABS Basophils 0.06 0.01 - 0.11 K/cmm 03/01/2024 10:[address] [facility] Absolute Immature Grans 0.04 0.00 - 0.06 K/cmm 03/01/2024 10:[address] [facility] Type of Differential: Auto 03/01/2024 10:[address] [facility] Blood VENOUS BLOOD / Unknown Venipuncture / Unknown 03/01/2024 10:08 EDT 03/01/2024 10:52 EDT Benny Ferreira MD PACKAGES & DNA P ROBE ORDERABLES [facility] [address] [place] [address] * CT ANGIO HEAD NECK (03/01/2024 10:06 EDT) Anatomical Region Laterality Modality Head and Neck Computed Tomogra phy 03/01/2024 10:3 2 EDT Addenda Addendum by William Barrios MD on 03/01/2024 14:54 EDT Addendum: ADDENDUM: CTA was performed during the same session as noncontrast CT head due to neurologic deficit and concern for large vessel occlusion/ischemic stroke. [id number] Impressions 03/01/2024 10:[address] ANGIOGRAM [...] to Dr. Ferreira on 03/01/2024 10:31 AM. [id number] Narrative 03/01/2024 10:32 EDT INDICATION: stroke symptoms; [...] significant stenosis. No aneurysm. Posterior Circulation: Right FOOD COUNTER WORKER: Unremarkable. No occlusion or significant stenosis. No aneurysm. 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 Left FOOD COUNTER WORKER: Unremarkable. No occlusion or significant stenosis. No aneurysm. Left vertebral artery: Patent dominant left vertebral artery. Basilar artery: Unremarkable. No occlusion or significant stenosis. No aneurysm. Resulting Agency Comment [id number] Procedure Note William Barrios MD - 03/01/2024 [...] or significant stenosis. Noaneurysm. Posterior Circulation: Right FOOD COUNTER WORKER: Unremarkable. No occlusion or significant stenosis. Noaneurysm. Right vertebral artery: Variant PICA termination of the right vertebralartery. Left FOOD COUNTER WORKER: Unremarkable. No occlusion or significant stenosis. Noaneurysm. [...] findings to Dr. Ferreira on 410:31 AM. [id number] Benny Ferreira MD IMG CT ORDERABLE S * CT HEAD WO CONTRAST (03/01/2024 10:02 EDT) Anatomical Region Laterality Modality Head Computed Tomogra phy 03/01/2024 10:1 5 EDT Addenda Addendum by William Barrios MD on 03/01/2024 10:32 EDT Addendum: I personally communicated these findings to Dr. Ferreira on 03/01/2024 10:31 AM. [id number] Impressions 03/01/2024 10:15 EDT 1. Vague hypodensity within the left basal ganglia suspicious for lacunar infarct, of uncertain age. 2. Indeterminate subcutaneous 15 mm soft tissue density nodule containing calcifications within the posterolateral right scalp. Correlate clinically. [id number] Narrative 03/01/2024 10:15 EDT INDICATION: Stroke symptoms; [...] 202), indeterminate. Correlate clinically. Resulting Agency Comment [id number] Procedure Note William Barrios MD - 03/01/2024 [...] containingcalcifications within the posterolateral right scalp. Correlateclinically. [id number] Benny Ferreira MD IMG CT ORDERABLE S * Critical Care (03/01/2024 9:49 EDT) [facility] EKG - 03/01/2024 9:49 EDT Benny Ferreira MD ? 03/01/2024 18:00 Critical Care Performed by: Benny Ferreira MD Authorized by: Benny Ferreira MD ?? Critical care provider statement: ??Critical care time (minutes): 60. 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 ??Critical care was time [...] are present, EMS, full telestroke consultation with [facility] stroke neurology was also obtained and treatment plan was discussed with them and then carried out Benny Ferreira MD PROCEDURE/MINOR SURGICAL ORDERABLES [facility] EKG documented in this encounter Visit Diagnoses Diagnosis Cerebrovascular accident (CVA), unspecified mechanism (HCC-CMS)- Primary Cerebrovascular accident (CVA), unspecified mechanism (HCC-CMS) Primary hypertension Unspecified essential hypertension Stage 3 chronic kidney disease, unspecified whether stage 3a or 3b CKD (HCC-CMS) Stage 3a chronic kidney disease (HCC-CMS) [N18.31] Mass in region of sella turcica present on magnetic resonance imaging Resistant hypertension Stenosis of carotid artery, unspecified laterality Primary hypertension Unspecified essential hypertension Stage 3 chronic kidney disease (HCC-CMS) documented in this encounter Admitting Diagnoses Diagnosis Acute ischemic stroke (HCC-CMS) Unspecified cerebral artery occlusion with cerebral infarction Cerebrovascular accident (CVA) ([facility]-CMS) documented in this encounter Administered Medications Inactive Administered Medications - up to 3 most recent administrations Medication Order MAR Action Action Date Dose Rate Site acetaminophen (TYLENOL) tablet 650 mg 650 mg, oral, EVERY 6 HOURS PRN, Starting on 03/01/24 at 1856, Until Nikole 03/03/24 at 1825, Pain, Fever, Routine Given 03/03/2024 12:51 EDT 650 mg Given 03/03/2024 6:06 EDT 650 mg acetaminophen (TYLENOL) tablet 975 mg 975 mg (rounded from 1,000 mg), oral, EVERY 6 HOURS PRN, Starting on Thu03/03/24 at 1825, Until Thu03/04/24 at 1357, Pain, Fever, Routine Given 03/04/2024 8:09 EDT 975 mg Given 03/04/2024 1:31 EDT 975 mg aspirin chewable tablet 81 mg 81 mg, oral, DAILY, First dose on Thu03/02/24 at 0900, Until Discontinued, Routine Given 03/04/2024 8:08 EDT 81 mg Given 03/03/2024 9:29 EDT 81 mg Given 03/02/2024 8:06 EDT 81 mg aspirin tablet 325 mg 325 mg, oral, NOW X1, 1 dose, On Thu03/01/24 at 1215, Routine Given 03/01/2024 12:10 EDT 325 mg atorvastatin (LIPITOR) tablet 40 mg 40 mg, oral, AT BEDTIME, First dose on Thu03/01/24 at 2100, Until Discontinued, Routine Given 03/03/2024 20:42 EDT 4 0 mg Given 03/02/2024 20:00 EDT 40 mg Given 03/02/2024 10:01 EDT 40 mg carvediloL (COREG) tablet 6.25 mg 6.25 mg, oral, 2 TIMES DAILY WITH BREAKFAST & DINNER, First dose on Thu03/03/24 at 1015, Until Discontinued, Routine Given 03/04/2024 8:08 EDT 6.25 mg Given 03/03/2024 17:41 EDT 6.25 mg Given 03/03/2024 10:39 EDT 6.25 mg cloNIDine HCL (CATAPRES) tablet 0.1 mg 0.1 mg, oral, 2 TIMES DAILY, First dose on Thu03/03/24 at 1215, Until Discontinued, Routine Given 03/04/2024 8:08 EDT 0.1 mg Given 03/03/2024 20:42 EDT 0.1 mg Given 03/03/2024 12:48 EDT 0.1 mg diclofenac sodium gel 2 g 2 g, topical, 4 TIMES DAILY, First dose on Thu03/03/24 at 1030, Until Discontinued, Routine Given 03/04/2024 11:43 EDT 2 g Given 03/04/2024 8:09 EDT 2 g Given 03/03/2024 20:45 EDT 2 g enoxaparin (LOVENOX) injection 40 mg 40 mg, subcutaneous, DAILY, First dose on Thu03/02/24 at 0900, Until Discontinued, Routine Given 03/04/2024 8:09 EDT 40 mg Given 03/03/2024 9:28 EDT 40 mg Given 03/02/2024 8:06 EDT 40 mg iohexoL (OMNIPAQUE 350) solution 100 mL 100 mL, intravenous, Once in imaging, 1 dose, Starting on Thu03/01/24 at 0951, Until Thu03/01/24 at 1006, Routine Given 03/01/2024 10:06 EDT 100 mL irbesartan (AVAPRO) tablet 150 mg 150 mg, oral, DAILY, First dose (after last modification) on Thu03/04/24 at 0900, Until Discontinued, Routine Given 03/04/2024 8:08 EDT 150 mg irbesartan (AVAPRO) tablet 75 mg 75 mg, oral, DAILY, First dose on Thu03/02/24 at 0900, Until Discontinued, Routine Given 03/02/2024 10:02 EDT 75 mg irbesartan (AVAPRO) tablet 75 mg 75 mg, oral, DAILY, First dose on Thu03/03/24 at 0615, Until Discontinued, Routine Given 03/03/2024 6:06 EDT 75 mg irbesartan (AVAPRO) tablet 75 mg 75 mg, oral, NOW X1, 1 dose, On Thu03/03/24 at 0800, Routine Given 03/03/2024 7:42 EDT 75 mg LORazepam (ATIVAN) injection 1 mg 1 mg, intravenous, NOW X1, 1 dose, On Thu03/01/24 at 1430, STAT Given 03/01/2024 14:19 EDT 1 mg niCARdipine in NaCl 0.9% (CARDENE) 20 mg/200 mL (0.1 mg/mL) infusion 0-15 mg/hr (0-150 mL/hr), intravenous, CONTINUOUS, Starting on Thu03/01/24 at 1200, Until Thu03/01/24 at 1307, Routine Rate Change 03/01/2024 12:46 EDT 2.5 mg/hr 25 mL/hr Rate Change 03/01/2024 12:32 EDT 5 mg/hr 50 mL/hr Rate Change 03/01/2024 12:17 EDT 10 mg/hr 100 mL/hr niCARdipine in NaCl 0.9% (CARDENE) 20 mg/200 mL (0.1 mg/mL) infusion 0-15 mg/hr (0-150 mL/hr), intravenous, CONTINUOUS, Starting on Thu03/01/24 at 1330, Until Thu03/02/24 at 0923, Routine Rate Change-ICU/L&D Only 03/02/2024 4:40 EDT 2.5 mg/hr 25 mL/hr New Bag 03/02/2024 4:12 EDT 5 mg/hr 50 mL/hr NIFEdipine XL (PROCARDIA-XL) tablet 30 mg 30 mg, oral, DAILY, First dose on Nikole 03/03/24 at 0730, Until Discontinued, Routine Given 03/04/2024 8:08 EDT 30 mg Given 03/03/2024 7:42 EDT 30 mg documented in this encounter Discontinued Medications Medication Sig Discontinue Reason Start Date End Da te aspirin chewable 81 mg tablet Take 81 mg by mouth daily. Patient stopped taking (will not send dc message to pharm) 03/01/2024 documented as of this encounter Active and Recently Administered Medications Times are shown in EDT. Scheduled Medication Order 03/02/2024 03/03/2024 03/04/2024 aspirin chewable tablet 81 mg 81 mg, oral, DAILY, First dose on Thu03/02/24 at 0900, Until Discontinued, Routine 0806 (Given - Provider: Chula Saldana RN) 0929 (Given - Provider: Hanna Mann, SILVIA) 0808 (Given - Provider: Hanna Mann, SILVIA) atorvastatin (LIPITOR) tablet 40 mg 40 mg, oral, AT BEDTIME, First dose on Thu03/01/24 at 2100, Until Discontinued, Routine 1001 (Given - Provider: Chula Saldana RN)1999 (Given - Provider: Keily Barclay, SILVIA) 2041 (Given - Provider: Keily Barclay, SILVIA) carvediloL (COREG) tablet 6.25 mg 6.25 mg, oral, 2 TIMES DAILY WITH BREAKFAST & DINNER, First dose on Thu03/03/24 at 1015, Until Discontinued, Routine 1039 (Given - Provider: Hanna Mann RN)1741 (Given - Provider: Hanna Mann RN) 0808 (Given - Provider: Hanna Mann RN) cloNIDine HCL (CATAPRES) tablet 0.1 mg 0.1 mg, oral, 2 TIMES DAILY, First dose on Thu03/03/24 at 1215, Until Discontinued, Routine 1248 (Given - Provider: Hanna Mann RN)2042 (Given - Provider: Keily Barclay RN) 0808 (Given - Provider: Hanna Mann RN) diclofenac sodium gel 2 g 2 g, topical, 4 TIMES DAILY, First dose on Thu03/03/24 at 1030, Until Discontinued, Routine 1150 (Given - Provider: Hanna Mann RN)1742 (Given - Provider: Hanna Mann RN)2045 (Given - Provider: Keily Barclay RN) 0809 (Given - Provider: Hanna Mann RN)1143 (Given - Provider: Hanna Mann RN) enoxaparin (LOVENOX) injection 40 mg 40 mg, subcutaneous, DAILY, First dose on Thu03/02/24 at 0900, Until Discontinued, Routine 0806 (Given - Provider: Chula Saldana RN) 0928 (Given - Provider: Hanna Mann RN) 0809 (Given - Provider: Hanna Mann RN) irbesartan (AVAPRO) tablet 150 mg 150 mg, oral, DAILY, First dose (after last modification) on Thu03/04/24 at 0900, Until Discontinued, Routine 0808 (Given - Provider: Hanna Mann RN) irbesartan (AVAPRO) tablet 75 mg (CANCELED) 75 mg, oral, DAILY, First dose on Thu03/02/24 at 0900, Until Discontinued, Routine 1002 (Given - Provider: Chula Saldana RN) irbesartan (AVAPRO) tablet 75 mg (CANCELED) 75 mg, oral, DAILY, First dose on Thu03/03/24 at 0615, Until Discontinued, Routine 0606 (Given - Provider: Keily Barclay RN) irbesartan (AVAPRO) tablet 75 mg (COMPLETED) 75 mg, oral, NOW X1, 1 dose, On Thu03/03/24 at 0800, Routine 0742 (Given - Provider: Hanna Mann RN) NIFEdipine XL (PROCARDIA-XL) tablet 30 mg 30 mg, oral, DAILY, First dose on Thu03/03/24 at 0730, Until Discontinued, Routine 0742 (Given - Provider: Hanna Mann RN) 0808 (Given - Provider: Hanna Mann RN) Continuous Medication Order 03/02/2024 03/03/2024 03/04/2024 niCARdipine in NaCl 0.9% (CARDENE) 20 mg/200 mL (0.1 mg/mL) infusion (CANCELED) 0-15 mg/hr (0-150 mL/hr), intravenous, CONTINUOUS, Starting on Thu03/01/24 at 1330, Until Thu03/02/24 at 0923, Routine 0412 (New Bag - Provider: Renee Garcia RN - Comment: BP 217/122)0440 (Rate Change-ICU/L&D Only - Provider: Renee Garcia RN)0518 (IV Stopped - Provider: Renee Garcia RN) PRN Medication Order 03/02/2024 03/03/2024 03/04/2024 acetaminophen (TYLENOL) tablet 650 mg (CANCELED) 650 mg, oral, EVERY 6 HOURS PRN, Starting on Thu03/01/24 at 1856, Until Thu03/03/24 at 1825, Pain, Fever, Routine 0606 (Given - Provider: Keily Barclay RN)1251 (Given - Provider: Hanna Mann RN) acetaminophen (TYLENOL) tablet 975 mg 975 mg (rounded from 1,000 mg), oral, EVERY 6 HOURS PRN, Starting on Thu03/03/24 at 1825, Until Thu03/04/24 at 1357, Pain, Fever, Routine 0131 (Given - Provid er: Keily Barclay RN)0809 (Given - Provider: Hanna Mann RN) calcium carbonate (TUMS) tablet 500 mg (200 mg elemental calcium) 1 Tablet 1 Tablet, oral, EVERY 6 HOURS PRN, Starting on Thu03/01/24 at 1856, Until Thu03/04/24 at 1357, Indigestion, Routine lidocaine (PF) 10 mg/mL (1 %) injection 2 mg 2 mg, intradermal, PRN, 4 doses, Starting on Thu03/01/24 at 1856, Until Thu03/04/24 at 1357, peripheral intravenous catheter placement, Routine polyethylene glycol 3350 (MIRALAX) packet 17 g 17 g, oral, DAILY PRN, Starting on Thu03/01/24 at 1856, Until Thu03/04/24 at 1357, Constipation, Routine ramelteon (ROZEREM) tablet 8 mg 8 mg, oral, AT BEDTIME PRN, Starting on Thu03/01/24 at 1856, Until Thu03/04/24 at 1357, Sleep, Routine documented in this encounter Orders Medications Ordered That Evan ht Not Have Been Administered Count Last Ordered Date First Ordered Date labetalol (TRANDATE) injection 10 mg 08/2023 amLODIPine (NORVASC) tablet 5 mg 1 03/02/20 aspirin chewable tablet 81 mg 1 03/01/2024 atorvastatin (LIPITOR) tablet 40 mg 03/01 calcium carbonate (TUMS) tab let 500 mg (200 mg elemental calcium) 1 Tablet 03/01/2024 lidocaine (PF) 10 mg/mL (1 % ) injection 2 mg 1 03/01/2024 polyethylene glycol 3350 (HI RALAX) packet 17 g 03/01/2024 ramelteon (ROZEREM) tablet 8 mg Diet Count Last Ordered Date First Orde red Date DISCHARGE DIET 1 03/04/2024 Nursing Count Last Ordered Date First Orde red Date ACTIVITY INSTRUCTIONS 03/04/2024 CALL HOSPITALIST FOR ADM/REF SANTIAGO TO [facility] NURSE 03/01/2024 MEASURE WEIGHT 03/01/2024 PAGE LUCY VAZQUEZ-STROKE/BLEED HEAD CT ALERT 1 0 03/01/2024 OT Count Last Ordered Date First Orde red Date OT EVALUATION AND TREAT 1 03/01/2024 PT Count Last Ordered Date First Orde red Date PT EVALUATION AND TREAT 03/01/2024 STRUCTURAL STEEL PAINTER Count Last Ordered Date First Orde red Date STRUCTURAL STEEL PAINTER CLINICAL SWALLOW EVALUATION AND TREAT 1 03/01/2024 Admission Count Last Ordered Date First Orde red Date ADMIT TO INPATIENT 1 03/01/2024 Transfer Count Last Ordered Date First Orde red Date TRANSFER PATIENT 1 03/02/2024 CONSULT TRANSFER CENTER (TRA NSFER/CONSULT TO OTHER FACILITY) 1 03/01/2024 ED BED REQUEST 1 03/01/2024 Discharge Count Last Ordered Date First Orde red Date DISCHARGE PATIENT 1 03/04/2024 Legal Count Last Ordered Date First Orde red Date MISCELLANEOUS DISCHARGE INSTRUCTIONS 2 09/2023 Equipment Count Last Ordered Date First Orde red Date GENERIC DME ORDER 1 03/04/2024 documented in this encounter Care Teams Lighter Captain Relationship Specialty Start Date End Date Nathan Tobin FNP PCP - General 02/23/17 documented as of this encounter
[2024-03-17 15:45] LABS: Anion Gap 10.2 mmol/L (3-11); BUN 21 mg/dL (7-18); CO2 23.8 mmol/L (21.0-32.0); CREATININE 1.6 mg/dL (0.70-1.30); Calcium 9.5 mg/dL (8.5-10.1); Chloride 102 mmol/L (98-107); Estimated GFR 45.78 (mL/min/1.73m2); Glucose 97 mg/dL (74-106); Potassium 4.5 mmol/L (3.5-5.1); Sodium 136 mmol/L (136-145)
== END 2024-03-17 09:00 | disposition home or self-care (01) ==
LOC: NCHCN 08:59
PROVIDERS: PCP Internal Medicine; Visit Provider Family Medicine
DX: I10 Essential (primary) hypertension (principal)
CPT/HCPCS: 80048

== ENCOUNTER 2024-06-22 09:02 | Outpatient (REF) | payer MEDICARE, SELFPAY ==
[2024-06-22 15:14] LABS: ALT 20 U/L (16-63); AST 15 U/L (15-37); Albumin 3.5 g/dL (3.4-5.0); Alkaline Phosphatase 78 U/L (46-116); Anion Gap 5.5 mmol/L (3-11); BUN 20 mg/dL (7-18); Bilirubin, Total 0.43 mg/dL (0.2-1.0); CO2 30.5 mmol/L (21.0-32.0); CREATININE 1.5 mg/dL (0.70-1.30); Calcium 8.8 mg/dL (8.5-10.1); Calculated LDL 138 mg/dL (<100); Chloride 104 mmol/L (98-107); Cholesterol 201 mg/dL (<200); Estimated GFR 49.47 (mL/min/1.73m2); Glucose 93 mg/dL (74-106); HDL Cholesterol 51 mg/dL (40-60); Potassium 4.5 mmol/L (3.5-5.1); Sodium 140 mmol/L (136-145); Total Protein 7.7 g/dL (6.4-8.2); Triglyceride 63 mg/dL (<150)
== END 2024-06-22 09:03 | disposition home or self-care (01) ==
LOC: NCHCN 09:02
PROVIDERS: PCP Internal Medicine; Visit Provider Family Medicine
DX: I10 Essential (primary) hypertension (principal)
CPT/HCPCS: 80053; 80061